=== PATIENT | female | born 1955 | race Caucasian/White ===

== ENCOUNTER 2025-01-25 09:58 | Outpatient (REF) | payer MEDICARE, SELFPAY ==
[2025-01-25 12:48] LABS: Vitamin B12 302 pg/mL (200-900)
[2025-01-30 02:53] LABS: CK-BB None Detected (None Detected); CK-MB 0 % (<5); CK-MM 100 % (95-100); Creatine Kinase,Total,Serum 68 U/L (18-225)
== END 2025-01-25 09:59 | disposition home or self-care (01) ==
LOC: HO.LAB 09:58
PROVIDERS: PCP Nurse Practitioner Family; Visit Provider Nurse Practitioner
DX: R51.9 Headache, unspecified (principal); R26.9 Unspecified abnormalities of gait and mobility; M54.2 Cervicalgia; M25.512 Pain in left shoulder
CPT/HCPCS: 20553; 36415; 64405; 82552; 82607; 83921; 99202; J0665; J2003

== ENCOUNTER 2025-01-25 09:58 | Outpatient (AMB) | payer MEDICARE, SELFPAY ==
--- NOTE | 2025-01-25 10:17 | A.OFFVIS_ITS ---
Vital Signs 01/25/25 10:18 Height 5 ft 7 in Weight 130 lb BMI 20.4 BP 118/78 Blood Pressure Location Lt brachial Position Sitting Respiration 16 Intake Visit Reasons: Migraine , Re-Establish Care Migraine Allergies No Known Allergies Allergy (Verified 01/25/25 10:17) Medication List - Last Reconciled 01/25/25 by Eloise Moore, MU clonazepam 0.5 mg PO DAILY coQ10 (ubiquinol) 100 mg PO BID cyclobenzaprine 10 mg PO QPM diltiazem HCl CD 120 mg PO DAILY flecainide 75 mg PO BID topiramate 50 mg PO BID triamcinolone acetonide 0.1% appl topical HPI Comments Details: Renetta is a 69-year-old female patient with past medical history of chronic headache and cardiac arrhythmias who is presenting today to reestablish care with me here at [facility] transferring from [facility] where I previously treated her. She has historically had bilateral/holocephalic headaches described as a pressure sensation originating from the occipital areas without any accompanying migrainous features. She has been treated successfully in the past with occipital nerve blocks. She originally started receiving nerve blocks with Dr. Oquendo and transferred to my care. Today she reports to me that due to some personal stressors at home including a sister with health problems as well as 2 recent deaths in her family, she has been feeling exceptionally tense. Her headaches have somewhat gotten slightly more persistent since our last visit at [facility] which was on 12/15/2024 at which time she did receive bilateral occipital nerve block injections. Her headaches most recently are consistent with prior in that they are bilateral/holocephalic and described as a pressure sensation originating from the occipital areas. She denies any light sensitivity, sound sensitivity, nausea, dizziness, or any brain fog associated with her headaches. She does feel some tension in her shoulder areas. She has inconsistent with her existing topiramate and cyclobenzaprine which she takes regularly in addition to her nerve blocks as she has been getting for preventive therapy. In addition to her headaches, she does bring up another concern she has for today including some difficulty with balance and a sensation that her gait is unsteady. She likens this to a sensation that she has been ?drinking?. She denies any postural lightheadedness or vertigo/room spinning sensations. She has not had any falls. In addition to the difficulty with her balance/gait, she also feels as though her thigh muscles have been sore throughout the day typically better in the morning and worsening throughout the day. She denies any cramping or radicular type of pain but rather describes more of an aching sensation. She denies any numbness or tingling. She denies any back pain. Social: Lives home with her Worked at [employer] and is now retired ETOH: Rately Substance Tobacco: 5 cigaretts per day Caffine: 2 cups per day Past medication trials: Topiramate- Currently taking with some benefit Cyclobenzaprine- Currently taking with some benefit Magnesium- Currently taking with some benefit Riboflaven- Currently taking with some benefit COQ10- Currently taking with some benefit Occipital Nerve Blocks- Works well Prior workup: None available [facility] Medical History (Updated 01/25/25 @ 15:51 by Eloise Moore CNP) Migraine Review of Systems Eyes Reports as per HPI Physical Exam Vital Signs: Last Vital Signs Resp 16 01/25/25 10:18 BP 118/78 01/25/25 10:18 BMI result Body Mass Index 20.4 Const General: cooperative, healthy appearing, comfortable and no acute distress Nutritional Appearance: well nourished Orientation/consciousness: patient oriented x3 Limitations: no limitations HEENT Head: Yes normal to inspection and Yes normocephalic Eyes General: appearance normal, both eyes and all related structures Visual Fagan: normal visual fagan by confrontation Alignment and Position: alignment normal Periorbital: periorbital findings normal Eyelids: Yes eyelids normal Conjunctivae: conjunctivae normal Sclerae: sclerae normal Direct Ophthalmoscopy: normal light reflex Back/Spine/Pelvis Other: Bilateral occipital notch tenderness and bilateral trapezius trigger points Neuro General: patient oriented x3 and tone normal Cranial nerves: Yes CN's II-XII intact bilaterally and Yes Facial sensation intact/muscles of mastication intact Cognition (Neuro): normal cognition Gait exam (Neuro): Other gait observations present (Appears stiff at the hips and knees bilaterally when ambulating. ) Motor exam (neuro): 5/5 motor strength present throughout and no tremor noted Sensory Exam: double simultaneous stimulation for sensation normal Deep tendon reflexes (DTR's): Right triceps reflex intensity grade: 2+, Left triceps reflex intensity grade: 2+, Rt Biceps (C5, C6): 2+, Left biceps reflex intensity grade: 2+, Right brachioradialis reflex intensity grade: 2+, Left brachioradialis reflex intensity grade: 2+, Right patellar reflex intensity grade: 0, Left patellar reflex intensity grade: 2+, Right ankle reflex intensity grade: 0 and Left ankle reflex intensity grade: 0 Plantar Reflex Responses: downgoing: bilateral Coordination: [id number] test normal Pupils: Normal pupillary reactivity/response: bilateral Psych Appearance: grossly normal Mental Status: mental status grossly normal Speech and movement: Normal speech and movement present and Clear speech present Affect: normal affect Attitude: cooperative Thought process: Normal thought process present Thought content: Normal thought content present Insight: Good insight present (Psych) Judgement: Good judgement present (Psych) Office Procedures Nerve Block Details: Bilateral Greater Occipital Nerve block procedure: Laterally: Bilateral Indications: Occipital neuralgia Current allergies and current list of medications were reviewed prior to procedure, verbal consent was obtained, procedure was explained in detail to the patient prior to starting. Time-out was performed prior to procedure. Following universal hygiene protocols, patient's left occipital area was located by drawing a line between the external occipital protuberance and the mastoid process. The greater occipital nerve was located approximately 2/3 along this on line csr to the occiput, and corresponded with the point of maximum tenderness. Alcohol was applied topically to the skin. A 27 gauge needle (aspirating during insertion) was inserted at a 45 degree angle until just above the periosteum. The providers selected agent (s)/medications (as documented in this note) were injected on the left side (directing needle to center, left and right of painful focus any fanning technique). Pressure with gauze pad was held briefly upon the site of puncture to minimize bleeding and to further spread anesthetic subcutaneously. The procedure was repeated on the right side. CPT: 23117-Eufmtuv Occipital Procedure code (CPT) selection complete Therapeutic Injection Therapeutic Injection Details: Trigger point injection procedure: Laterally:Bilateral Indications: Chronic headaches, myofascial pain Following universal hygiene protocol, after explaining the risks and benefits as well as hazards of the procedure to the patient, consent was signed and placed in the chart. Time-out prior to starting the procedure was performed. The areas over the bilateral trapezius muscles were cleansed with alcohol. 2 Sites in each trapezius muscle injected with a 27 gauge 1.5 in needle with myofascial spasm. Patient tolerated the procedure well, localized bleeding was controlled. Patient monitored in the clinic for 15 minutes for complications. Patient was discharged home with instructions to apply ice to the back of their head as needed. 18553-Lvhlqis Point Injection 3 or more All charges added?: Procedure code (CPT) selection complete Office Meds lidocaine (PF) 10 mg/mL (1 %) injection solution Performing Provider: Eloise Moore CNP Performing Location: [facility] Neurology and Sleep-[facility] Administered by: Eloise Moore CNP on 01/25/25 15:51 Dose Route Admin Location Dispensed Lot Number Expiration Date [facility] Stage Settings Painter 1 mL peripheral nerve block 1 mL Total Dispensed Waste 1 mL 0 % bupivacaine (PF) 0.25 % (2.5 mg/mL) injection solution Performing Provider: Eloise Moore CNP Performing Location: [facility] Neurology and Sleep-Hol Administered by: Eloise Moore CNP on 01/25/25 15:51 Dose Route Admin Location Dispensed Lot Number Expiration Date [facility] Stage Settings Painter 4 mL Infiltration 10 mL [id number] [employer] Total Dispensed Waste 10 mL 60 % bupivacaine (PF) 0.25 % (2.5 mg/mL) injection solution Performing Provider: Eloise Moore CNP Performing Location: [facility] Neurology and Sleep-Hol Administered by: Eloise Moore CNP on 01/25/25 15:53 Dose Route Admin Location Dispensed Lot Number Expiration Date [facility] Stage Settings Painter 3 mL Infiltration 10 mL [id number] [employer] Total Dispensed Waste 10 mL 70 % Assessment & Plan Assessment & Plan (1) Gait abnormality: Comment: MRI brain and c-spine without contrast. R/o cord compressive myelopathy or CVA. CK, b12, and MMA Code(s): R26.9 - Unspecified abnormalities of gait and mobility Category: Medical Plan: . (2) Occipital headache: Code(s): R51.9 - Headache, unspecified Category: Medical Plan: . Julienne Renetta is a 69-year-old female patient with past medical history of chronic headache and cardiac arrhythmias who is presenting today to reestablish care with me here at [facility] transferring from [facility] where I previously treated her. 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 She also displayed some significant trigger points to the bilateral trapezius muscles worse on the left today. We performed occipital nerve block injections as well as trigger point injections today. There were no complications during the visit procedure. We will continue this treatment for headaches. In regards to her worsening balance. Given her chronic headaches and gait abnormality, I am concerned about the possibility of C-spine pathology including a compressive myelopathy. We should also consider intracranial pathology though this is less likely. I will however perform an MRI of the brain to rule out such things as CVA. I also included labs to rule out possible contributors to gait abnormalities including B12 deficiencies or a myopathy. I will have her follow-up in approximately 2 months to review both labs and MRI and likely complete another round of nerve block and trigger point injections at that time. -cervical spine MRI without contrast -MRI of the brain without contrast -labs: B12, MMA, and CK level -follow-up in 2 months or sooner if needed Orders: Orders Vitamin B12 Today R26.9 - Unspecified abnormalities of gait and mobility Methylmalonic Acid Today R26.9 - Unspecified abnormalities of gait and mobility CK, Total+Isoenzymes, Serum Today R26.9 - Unspecified abnormalities of gait and mobility MR head/brain wo con Today R26.9 - Unspecified abnormalities of gait and mobility MR cervical spine wo con Today M54.2 - Cervicalgia AMB Nerve Block Today R51.9 - Headache, unspecified AMB Trigger Point Injection Today M25.512 - Pain in left shoulder Coding Level of Care Code New Pt Level 4 (68978) Diagnoses Gait abnormality R26.9 Occipital headache R51.9 CPT Codes Nerve Block - CPT: 66843-Zczjkrg Occipital ([id number]) Therapeutic Injection - Ther Injection 2: 99244-Oyibudl Point Injection 3 or more ([id number])
[2025-01-25 10:18] VITALS: BP 118/78; RESP 16; BMI 20.4
--- OUTSIDE RECORDS SUMMARY | 2025-01-25 11:41 | XMS_ITS | Encounter Summary ---
Author Organization [facility] Address [address] [place] [id number] Phone Care Team Providers Care Motor Vehicle Technician Name Role Phone Billy Roman MD Unavailable Zora Gallagher CNP Primary Care Provider Zora Gallagher CNP Unavailable Encounter Details Date Type Department Care Team (Latest Contact Info) Description 11/03/2024 Ancillary Orders [address] [address] Alyssa Helms MD [address] [place] [address] Orthopedics & Sports Medicine, [facility] [place], [place] [id number] [email or web address] Localized osteoarthritis of shoulder regions, bilateral (Primary Dx) Social History Tobacco Use Types Packs/Day Years Used Date Smoking Tobacco: Every Day Cigarettes 0.5 40 Smokeless Tobacco: Never Comments:Pattie 1/4ppd Alcohol Use Standard Drinks/Week Comments Yes 0 (1 standard drink = 0.6 oz pur e alcohol) a few times per week Education Answer Date Recorded Are you interested in more education? Not on tammy e 09/16/2022 Are you concerned about learning? Not on file 09/16/2022 No 09/16/2022 No 09/16/2022 Digital Access Answer Date Recorded No 10/08/2022 No 10/08/2022 Reliable internet access at home? Not on file 10/08/2022 Device with a working camera? Not on file Comments No Sex and Gender Information Value Date Recorded Sex Assigned at Female 03/29/2019 9:28 AM EST Legal Sex Female 5:28 PM EST Gender Identity Female 03/29/2019 9:28 AM EST Sexual Orientation Not on file documented as of this encounter Plan of Treatment Upcoming Encounters Date Type Department Care Team (Late st Contact Info) Description 02/26/2024 Procedure Pass [facility] [address] [place] [address] 02/25/2025 10:30 AM EDT Appointment [address] [address] Zora Gallagher, SLUNK SKIN CURER [address] [address] 03/11/2025 9:15 AM EDT Office Visit [facility] Orthopedics & Sports Medicine [address] [place] [address] Alyssa Helms MD [address] [place] [address] Orthopedics & Sports Medicine, [place] [address] [email or web address] 04/27/2025 9:00 AM EST Office Visit [facility] [address] [place] [address] Zora Gallagher, SLUNK SKIN CURER [address] [address] 05/24/2025 10:00 AM EST Office Visit [facility] [address] [place] [address] [address]rd Floor, [address] [place] [address] John Bean MD [address] [place] [phone] Pending Results Name Type Priority Associated Diagnoses Date /Time FL Guidance Needle Placement Non-Spine Imaging Routine Localized osteoarthritis of shoulder regions, bilateral 11/09/2024 10:07 AM EDT Scheduled Orders Name Type Priority Associated Diagnoses Orde r Schedule FL Guidance Needle Placement Non-Spine Imaging Routine Localized osteoarthritis of shoulder regions, bilateral 1 Occurrences starting 11/03/2024 until 02/03/2025 documented as of this encounter Visit Diagnoses Diagnosis Localized osteoarthritis of shoulder regions, bilateral- Primary documented in this encounter Additional Health Concerns Assessment Noted Time PHQ-2 Depression Total Score: 0 08/27/19 24 11:28 AM EDT documented as of this encounter Care Teams Motor Vehicle Technician Relationship Specialty Start Date End Date Zora Gallagher CNP [address] [facility], [facility] [address] [place] [address] [email or web address] PCP - General Nurse Practitioner 08/14/23 Billy Roman MD [address] [place] [phone] [email or web address] Cardiology 11/12/21 Zora Gallagher CNP [address] [facility], [facility] [address] [place] [address] [email or web address] Insurance Assigned Provider 08/22/24 documented as of this encounter Additional Source Comments The information contained in this document represents components of the legal health record. It is not the complete legal health record.[facility]
--- OUTSIDE RECORDS SUMMARY | 2025-01-25 11:41 | XMS_ITS | Encounter Summary ---
Author Organization [facility] Address [address] [place] [address] Phone Care Team Providers Care Auto Mechanics Instructor Name Role Phone Chidi Torres MD Primary Care Provider Chidi Torres MD Unavailable Billy Roman MD Unavailable [phone] Zora Gallagher CNP Primary Care Provider [phone] Chidi Torres MD Unavailable Stefanie Dow MD Unavailable Zora Gallagher CNP Unavailable [phone] Encounter Details Date Type Department Care Team (Late st Contact Info) Description 04/03/2021 Telephone [facility] Electrophysiology Lab [address] [place], [place] [phone] Elina Templeton, RN [address] [place] [phone] [email or web address] Social History Tobacco Use Types Packs/Day Years Used Date Smoking Tobacco: Every Day Cigarettes 0.3 30 Smokeless Tobacco: Never Alcohol Use Standard Drinks/Week Comments Yes 0 (1 standard drink = 0.6 oz pur e alcohol) occasional beer Comments No Sex and Gender Information Value Date Recorded Sex Assigned at Female 03/29/2019 9:28 AM EST Legal Sex Female 5:28 PM EST Gender Identity Female 03/29/2019 9:28 AM EST Sexual Orientation Not on file documented as of this encounter Plan of Treatment Upcoming Encounters Date Type Department Care Team (Late st Contact Info) Description 02/26/2024 Procedure Pass [facility] [address] [place] [address] 02/25/2025 10:30 AM EDT Appointment [address] [address] Zora Gallagher, TIRE MAINTENANCE TECHNICIAN [address] [address] 03/11/2025 9:15 AM EDT Office Visit [facility] Orthopedics & Sports Medicine [address] [place] [address] Alyssa Helms MD [address] [place] [address] Orthopedics & Sports Medicine, [place] [address] [email or web address] 04/27/2025 9:00 AM EST Office Visit [address] [address] Zora Gallagher, [address] [address] 05/24/2025 10:00 AM EST Office Visit [facility] [address] [place] [address] [address] Floor, [address] [place] [address] John Bean MD [address] [place] [phone] documented as of this encounter Results * COVID-19 PCR Order (04/13/2021 10:09 AM EST) COVID-19 Comment [id number] [facility] COVID Testing Status In-house testing being performed [facility] Other 04/13/2021 10:0 9 AM EST 04/13/2021 11:23 AM EST Ariana Kenney MD, MS BODY FLUIDS AND STOOLS MENA ALLAN Final Result [facility] [address] [place] [address] documented in this encounter Visit Diagnoses Diagnosis Encounter for preoperative screening laboratory testing for COVID-19 virus- Primary documented in this encounter Additional Health Concerns Infection Onset Date Last Indicated Resolved Time CoV-Exposed Comment:Recent close contact documented in the COVID-19 Amb Triage Form 04/25/2021 05/01/2021 05/10/2021 1:[address] CoV-Risk 10/03/2021 10/03/2021 10/14/2021 1:22 AM EDT CoV-Presumed 01/05/2022 01/05/2022 01/26/2022 1:21 AM EDT Assessment Noted Time PHQ-2 Depression Total Score: 0 11/24/19 9:14 AM EDT documented as of this encounter Care Teams Auto Mechanics Instructor Relationship Specialty Start Date End Date Chidi Torres MD [address] [place] [address] [email or web address] PCP - General 03/06/17 08/13/23 Zora Gallagher CNP [address] [place] [address] [email or web address] PCP - General Nurse Practitioner 08/14/23 Chidi Torres MD [address] [place] [address] [email or web address] Insurance Assigned Provider 08/25/21 11/11/21 Billy Roman MD [address] [address] [email or web address] Cardiology 11/12/21 Chidi Torres MD [address] [place] [address], [address] [place] [address] Insurance Assigned Provider 08/25/21 08/23/23 Stefanie Dow MD [address] [place] [address], [address] [place] [email or web address] Insurance Assigned Provider 08/23/23 08/22/24 Zora Gallagher CNP [address] [place] [address], [address] [place] [address] Insurance Assigned Provider 08/22/24 documented as of this encounter Additional Source Comments The information contained in this document represents components of the legal health record. It is not the complete legal health record.[facility]
--- OUTSIDE RECORDS SUMMARY | 2025-01-25 11:41 | XMS_ITS | Encounter Summary ---
Author Organization [facility] Address [address] [place] [address] Phone Care Team Providers Care Peg Driver Name Role Phone Chidi Torres MD Primary Care Provider Chidi Torres MD Unavailable [phone] Billy Roman MD Unavailable Zora Gallagher CNP Primary Care Provider Chidi Torres MD Unavailable Stefanie Dow MD Unavailable [phone] Zora Gallagher CNP Unavailable Encounter Details Date Type Department Care Team (Late st Contact Info) Description 12/04/2020 Procedure Pass [facility] Electrophysiology Lab [address] [place] [id number] Social History Tobacco Use Types Packs/Day Years [...] st Contact Info) Description 02/26/2024 Procedure Pass [facility] [address] [place] [address] 02/25/2025 10:30 AM EDT Appointment [facility] [address] [place] [address] Zora Gallagher, INFORMATION SYSTEMS SECURITY DEVELOPER 234 [facility] 7 [place] [address] 03/11/2025 9:15 AM EDT Office Visit [facility] Orthopedics & Sports Medicine [address] [place] [address] Alyssa Helms MD [address] [place] [address] Orthopedics & Sports Medicine, [place] [address] [email or web address] 04/27/2025 9:00 AM EST Office Visit [address] [address] Aileen Zora, INFORMATION SYSTEMS SECURITY DEVELOPER [address] [address] 05/24/2025 10:00 AM EST Office Visit [facility] [address] [place] [address] 3rd Floor, [address] [place] [address] John Bean MD [address] [place] [phone] documented as of this encounter Visit Diagnoses Not on filedocumented in this encounter Additional Health Concerns Infection Onset Date Last Indicated Resolved Time CoV-Exposed Comment:Patient meets exposure criteria to an employee who was confirmed positive for Covid-19. A CoV-Exposed flag has been added to the chart. The last possible exposure date was 12/19/20 and the CoV-Exposed flag will auto-resolve on 01/03/21. 12/19/2020 12/22/2020 01/03/2021 1:32 AM E DT CoV-Exposed Comment:Recent close contact documented in the COVID-19 Amb Triage Form 04/25/2021 05/01/2021 05/10/2021 1:[address] CoV-Risk 10/03/2021 10/03/2021 10/14/2021 1:22 AM EDT CoV-Presumed 01/05/2022 01/05/2022 01/26/2022 1:21 AM EDT Assessment Noted Time PHQ-2 Depression Total Score: 0 11/24/19 9:14 AM EDT documented as of this encounter Care Teams Peg Driver Relationship Specialty Start Date End Date Chidi Torres MD [address] [place] [address] [email or web address] PCP - General 03/06/17 08/13/23 Zora Gallagher CNP [address] [place] [address] [email or web address] PCP - General Nurse Practitioner 08/14/23 Chidi Torres MD [address] [place] [address] [email or web address] Insurance Assigned Provider 08/25/21 11/11/21 Billy Roman MD [address] [place] [phone] [email or web address] Cardiology 11/12/21 Chidi Torres MD [address] [place] [address] [email or web address] Insurance Assigned Provider 08/25/21 08/23/23 Stefanie Dow MD [address] [place] [address], [address] [place] [address] [email or web address] Insurance Assigned Provider 08/23/23 08/22/24 Zora Gallagher CNP [address] [place] [address], [address] [place] [address] [email or web address] Insurance Assigned Provider 08/22/24 documented as of this encounter Additional Source Comments The information contained in this document represents components of the legal health record. It is not the complete legal health record.[facility]
--- OUTSIDE RECORDS SUMMARY | 2025-01-25 11:41 | XMS_ITS | Encounter Summary ---
Author Organization [facility] Address [address] [place] [address] Phone Care Team Providers Care Medical Laboratory Manager Name Role Phone Chidi Torres MD Primary Care Provider Chidi Torres MD Unavailable Chidi Torres MD Unavailable [phone] Billy Roman MD Unavailable Zora Gallagher CURRICULUM FACILITATOR Primary Care Provider [phone] Chidi Torres MD Unavailable Stefanie Dow MD Unavailable [phone] Zora Gallagher CURRICULUM FACILITATOR Unavailable [phone] Reason for Referral * MRI/CAT Scan - Closed Specialty Diagnoses / Procedures Referred By Monica scott Referred To Contact Radiology Diagnoses Neck pain Procedures MRI Cervical Spine Jessie Green MD Phone: tel: fax: Referral ID Status Reason Start Date Expiration Date Visits Re quested Visits Authorized [id number] Closed 05/23/2020 05/23/2021 1 1 Encounter Details Date Type Department Care Team (Latest Contact Info) Description 05/23/2020 Transcribe Orders [facility] Department [address] [place] [address] Jessie Green MD [address] [place] [address] Neck pain (Primary Dx) Social History Tobacco Use Types [...] st Contact Info) Description 02/26/2024 Procedure Pass [address] [address] 02/25/2025 10:30 AM EDT Appointment [address] [address] Zora Gallagher, CURRICULUM FACILITATOR [address] [address] 03/11/2025 9:15 AM EDT Office Visit [facility] Orthopedics & Sports Medicine [address] [place] [address] Alyssa Helms MD [address] [place] [address] Orthoped[facility] [place] [place] [address] [email or web address] 04/27/2025 9:00 AM EST Office Visit [facility] [address] [place] [address] Zora Gallagher, CURRICULUM FACILITATOR [address] [address] 05/24/2025 10:00 AM EST Office Visit [facility] [address] [facility], [address] [place] [address] John Bean MD [address] [place] [address] [email or web address] documented as of this encounter Results * MRI CERVICAL SPINE (NEURO) FOCUS WITHOUT CONTRAST (05/26/2020 8:55 AM EST) Anatomical Region Laterality Modality C-spine Magnetic Resonan ce 05/26/2020 9:01 AM EST Impressions 05/26/2020 9:20 AM EST 1. Mild progression of a central disc protrusion at C6-C7 approaching and likely contacting the anterior margin of the spinal cord. No significant deformation of the spinal cord. 2. No other significant changes from 05/13/2018. Narrative 05/26/2020 9:20 AM EST HISTORY:. Pain which increases when turning the head to the right, numbness and paresthesias in right hand. Occasional numbness and paresthesias in left hand. COMPARISON: MRI cervical spine 05/13/2018. TECHNIQUE: Exam performed on a 1.5 Lizbeth high-field MRI scanner. Sagittal T1, T2 and STIR, axial T2* gradient echo and 3-D bright fluid sequences were obtained. FINDINGS: Cervicomedullary junction: No significant abnormalities. Spinal cord: No evidence of spinal cord lesions. C2-C3: No significant changes. C3-C4: Severe narrowing of the right neuroforamen by uncovertebral joint osteophytes is stable. No significant narrowing of the left neuroforamen. No central canal stenosis has developed. C4-C5: Mild narrowing of the right neuroforamen unchanged. Minimal broad-based bulging of the disc unchanged. No other significant changes. C5-C6: Similar artifact from fusion hardware. This partially obscures anatomic detail at this level. No definite deformation of the spinal cord or central canal stenosis. Neuroforamina are partially obscured. No definite high-grade neuroforaminal narrowing. No other significant changes. C6-C7: Similar mild degenerative disc changes. Mild progression of a small- moderate size central disc protrusion approaching and likely contacting the spinal cord. No significant deformation of the spinal cord. Mild-moderate neuroforaminal narrowing on the right and more mild neuroforaminal narrowing on the left appears stable. C7-T1: No significant abnormalities have developed. Vertebrae: No subluxations. No suspicious marrow signal abnormalities. T1, T2 hyperintense lesion within the body of C7 measuring approximately a centimeter is stable and likely a hemangioma. Soft tissue: No evidence of paravertebral masses. Procedure Note Bi Zaragoza MD - 05/26/2020 HISTORY:. Pain which increases when turning the head to the right,numbness and paresthesias in right hand. Occasional numbness andparesthesias in left hand. COMPARISON: MRI cervical spine 05/13/2018. TECHNIQUE: Exam performed on a 1.5 Lizbeth high-field MRI scanner.Sagittal T1, T2 and STIR, axial T2* gradient echo and 3-D bright fluidsequences were obtained. FINDINGS: Cervicomedullary junction: No significant abnormalities. Spinal cord: No evidence of spinal cord lesions. C2-C3: No significant changes. C3-C4: Severe narrowing of the right neuroforamen by uncovertebral jointosteophytes is stable. No significant narrowing of the left neuroforamen.No central canal stenosis has developed. C4-C5: Mild narrowing of the right neuroforamen unchanged. Minimalbroad-based bulging of the disc unchanged. No other significant changes. C5-C6: Similar artifact from fusion hardware. This partially obscuresanatomic detail at this level. No definite deformation of the spinal cordor central canal stenosis. Neuroforamina are partially obscured. Nodefinite high-grade neuroforaminal narrowing. No other significantchanges. C6-C7: Similar mild degenerative disc changes. Mild progression of asmall- moderate size central disc protrusion approaching and likelycontacting the spinal cord. No significant deformation of the spinal cord.Mild-moderate neuroforaminal narrowing on the right and more mildneuroforaminal narrowing on the left appears stable. C7-T1: No significant abnormalities have developed. Vertebrae: No subluxations. No suspicious marrow signal abnormalities. T1,T2 hyperintense lesion within the body of C7 measuring approximately acentimeter is stable and likely a hemangioma. Soft tissue: No evidence of paravertebral masses. IMPRESSION: 1. Mild progression of a central disc protrusion at C6-C7 approaching andlikely contacting the anterior margin of the spinal cord. No significantdeformation of the spinal cord. 2. No other significant changes from 05/13/2018. Jessie Green MD IMG MR XSPECIALTY Final Result documented in this encounter Visit Diagnoses Diagnosis Neck pain- Primary Cervicalgia Neck pain Cervicalgia documented in this encounter Additional Health Concerns [...] Noted Time PHQ-2 Depression Total Score: 0 04/22/20 10:33 AM EST documented as of this encounter Care Teams Medical Laboratory Manager Relationship Specialty Start Date End Date Chidi Torres MD 234 [facility] 7 [place] [address] [email or web address] PCP - General 03/06/17 08/13/23 Zora Gallagher CNP 234 [facility] 7 [place] [address] PCP - General Nurse Practitioner 08/14/23 Chidi Torres MD [address] [place] [address], [facility] [address] [place] [address] Insurance Assigned Provider 03/25/20 07/22/20 Chidi Torres MD [address] [place] [address], [facility] [address] [place] [phone] Insurance Assigned Provider 08/25/21 11/11/21 Billy Roman MD 3 [place] [address] [email or web address] Cardiology 11/12/21 Chidi Torres MD [address] [place] [address] [address] [place] [phone] Insurance Assigned Provider 08/25/21 08/23/23 Stefanie Dow MD [address] [place] [address] [address] [place] [phone] Insurance Assigned Provider 08/23/23 08/22/24 Zora Gallagher CNP [address] [place] [address] [address] [place] [phone] Insurance Assigned Provider 08/22/24 documented as of this encounter Additional Source Comments The information contained in this document represents components of the legal health record. It is not the complete legal health record.[facility]
--- OUTSIDE RECORDS SUMMARY | 2025-01-25 11:41 | XMS_ITS | Encounter Summary ---
Author Organization [facility] Address [address] [place] [address] Phone Care Team Providers Care Rfid Systems Architect Name Role Phone Chidi Torres MD Primary Care Provider Billy Roman MD Unavailable [phone] Zora Gallagher CNP Primary Care Provider [phone] Chidi Torres MD Unavailable [phone] Stefanie Dow MD Unavailable Zora Gallagher CNP Unavailable [phone] Encounter Details Date Type Department Care Team (Late st Contact Info) Description 08/16/[address] [address] Social History Tobacco Use Types Packs/Day Years [...] st Contact Info) Description 02/26/2024 Procedure Pass [facility] 30 [place] [address] 02/25/2025 10:30 AM EDT Appointment [facility] [address] [place] [address] Zora Gallagher, NIB ADJUSTER 234 [facility] 7 [place] [address] 03/11/2025 9:15 AM EDT Office Visit [facility] Orthopedics & Sports Medicine [address] [place] [address] Alyssa Helms MD [address] [place] [address] Orthopedics & Sports Medicine, [facility] [place] [address] [email or web address] 04/27/2025 9:00 AM EST Office Visit [facility] [address] [place] [address] Zora Gallagher, NIB ADJUSTER [address] [address] 05/24/2025 10:00 AM EST Office Visit [facility] [address] [place] [address] 3rd Floor, [address] [place] [address] John Bean MD [address] [place] [address] documented as of this encounter Visit Diagnoses Not on filedocumented in this encounter Additional Health Concerns Assessment Noted Time PHQ-2 Depression Total Score: 0 02/29/20 22 9:50 AM EDT documented as of this encounter Care Teams Rfid Systems Architect Relationship Specialty Start Date End Date Chidi Torres MD [address] [place] [address] PCP - General 03/06/17 08/13/23 Zora Gallagher CNP [address] [place] [address], [facility] [address] [place] [address] PCP - General Nurse Practitioner 08/14/23 Billy Roman MD [address] [place] [address] [email or web address] Cardiology 11/12/21 Chidi Torres MD [address] [place] [address], [address] [place] [phone] Insurance Assigned Provider 08/25/21 08/23/23 Stefanie Dow MD [address] [place] [address], [address] [place] [phone] Insurance Assigned Provider 08/23/23 08/22/24 Zora Gallagher CNP [address] [place] [address], [facility] [address] [place] [phone] Insurance Assigned Provider 08/22/24 documented as of this encounter Additional Source Comments The information contained in this document represents components of the legal health record. It is not the complete legal health record.[facility]
--- OUTSIDE RECORDS SUMMARY | 2025-01-25 11:41 | XMS_ITS | Encounter Summary ---
Author Organization [facility] Address [address] [place] [address] Phone Care Team Providers Care Chef De Cuisine Name Role Phone Chidi Torres MD Primary Care Provider Chidi Torres MD Unavailable [phone] Chidi Torres MD Unavailable [phone] Chidi Torres MD Unavailable Billy Roman MD Unavailable Zora Gallagher CNP Primary Care Provider [phone] Chidi Torres MD Unavailable Stefanie Dow MD Unavailable Zora Gallagher CNP Unavailable Reason for Referral * MRI/CAT Scan - Closed Specialty Diagnoses / Procedures Referred By Monica scott Referred To Contact Radiology Diagnoses Ataxia Numbness Neck pain Procedures MRI Cervical Spine Des Boyce MD Phone: tel: fax: [email or web address] Referral ID Status Reason Start Date Expiration Date Visits Re quested Visits Authorized [id number] Closed 04/30/2018 05/31/2018 1 1 Encounter Details Date Type Department Care Team (Late st Contact Info) Description 05/08/2018 Ancillary Orders Virtual Department 30 [place] [address] Des Boyce MD [address] [place] [address], [address] [place] [address] Ataxia; Numbness; Neck pain Social History Tobacco Use Types Packs/Day Years Used Date Smoking Tobacco: Every Day Cigarettes 0.5 30 Smokeless Tobacco: Never Comments Unknown Sex and Gender Information Value Date Recorded Sex Assigned at Female 03/29/2019 9:28 AM EST Legal Sex Female 5:28 PM EST Gender Identity Female 03/29/2019 9:28 AM EST Sexual Orientation Not on file documented as of this encounter Plan of Treatment Upcoming Encounters Date Type Department Care Team (Late st Contact Info) Description 02/26/2024 Procedure Pass [address] [address] 02/25/2025 10:30 AM EDT Appointment [address] [address] Zora Gallagher, MU 234 [facility] 7 [place] [address] 03/11/2025 9:15 AM EDT Office Visit [facility] [address] [place] [address] Alyssa Helms MD [address] [place] [address] [facility] [place] [place] [address] [email or web address] 04/27/2025 9:00 AM EST Office Visit [facility] Medicine [address] [place] [address] Zora Gallagher, PIPE FITTER SUPERVISOR MAINTENANCE 234 [facility], [facility] 7 [place] [address] [email or web address] 05/24/2025 10:00 AM EST Office Visit [facility] [address] Floor, [address] [place], [place] [id number] John Bean MD [address] [place] [address] documented as of this encounter Results * MRI CERVICAL SPINE (NEURO) FOCUS WITHOUT CONTRAST (05/13/2018 8:28 AM EST) Anatomical Region Laterality Modality C-spine Magnetic Resonan ce 05/13/2018 9:09 AM EST Impressions 05/13/2018 4:59 PM EST 1. Severe right C3-C4 neural foraminal stenosis from combination of uncovertebral and posterior disc osteophytic spurring, likely impinging upon the exiting right C4 nerve. 2. At C5-C6, at the level of prior anterior fusion, mild to moderate canal narrowing predominantly from posterior ridgelike spurring. 3. At C6-C7, small broad-based central disc extrusion, together with ridgelike spurring resulting in moderate central canal, moderate right and mild left neural foraminal stenosis. POS [id number] Edited by: Terra Carter on 05/13/2018 3:09 PM Narrative 05/13/2018 4:59 PM EST EXAM: MRI CERVICAL SPINE (NEURO) FOCUS WITHOUT CONTRAST HISTORY: Rule out myelopathy . Right-sided neck pain, right arm and right hand radiation. Numbness and tingling right hand greater than one year. Prior cervical spine fusion. TECHNIQUE: Exam performed on a 1.5 Lizbeth high-field MRI unit. Sagittal T1, T2 and STIR, axial T2* gradient echo and 3-D T2 sequences obtained. COMPARISON: Report from prior cervical spine MRI 07/05/2014; images not available for review. FINDINGS: Susceptibility artifact at C5-C6 is from anterior fusion hardware. Well-defined mixed signal T1 and T2/STIR hyperintensity in the superior C7 vertebral body to the left of midline, was described on the prior cervical spine MRI and most likely represents a hemangioma. There is no other marrow signal abnormality. There is minimal loss of disc height at all levels. There is uncovertebral hypertrophy most significant at C3-C4. Mild and moderate bilateral facet hypertrophy at all levels in the cervical spine. Vertebrae are normal in height and alignment. There is posterior ligamentous hypertrophy at C1-C2 with indentation upon the thecal sac. Evaluation of individual levels: C2-C3: Minimal uncovertebral hypertrophy. No focal disc herniation. No significant central canal or neural foraminal stenosis. C3-C4: Minimal posterior disc osteophyte complex, asymmetric right-sided uncovertebral hypertrophy with osteophytic spurring protruding towards the right C3-C4 neural foramen. There is mild canal stenosis, severe right neural foraminal stenosis with the ridgelike spurring protruding into the right C3-C4 neural foramen, impinging upon the exiting right C4 nerve. No significant left-sided neural foraminal stenosis. C4-C5: Very minimal uncovertebral hypertrophy and very minimal central disc bulging. Mild facet hypertrophic changes bilaterally. No significant canal or neural foraminal stenosis. C5-C6: Susceptibility artifact from surgery. With the susceptibility artifact, detailed evaluation is limited. There appears to be ridgelike spurring at the posterior margin of the inferior endplate of C5, uncovertebral osteophytic changes and moderate bilateral facet hypertrophic changes. There is indentation upon the anterior thecal sac and anterior cord, with preservation of CSF signal lateral and posterior to the cord. Canal is mildly narrowed. C6-C7: Small bilateral perineural cysts. Small broad-based central disc extrusion, mild posterior disc ridgelike spurring and bilateral uncovertebral spurring. There is posterior ligamentous thickening and mild bilateral facet hypertrophic spurring. There is moderate canal stenosis, moderate right and mild left neural foraminal stenosis. C7-T1, T1-T2 and T2-T3: There is no significant canal or neural foraminal stenosis. Anterior disc herniation at T2-T3. No posterior disc herniations. Procedure Note Kayla Sandoval MD - 05/13/2018 EXAM: MRI CERVICAL SPINE (NEURO) FOCUS WITHOUT CONTRAST HISTORY: Rule out myelopathy . Right-sided neck pain, right arm and righthand radiation. Numbness and tingling right hand greater than one year.Prior cervical spine fusion. TECHNIQUE: Exam performed on a 1.5 Lizbeth high-field MRI unit. Sagittal T1,T2 and STIR, axial T2* gradient echo and 3-D T2 sequences obtained. COMPARISON: Report from prior cervical spine MRI 07/05/2014; images notavailable for review. FINDINGS: Susceptibility artifact at C5-C6 is from anterior fusion hardware.Well-defined mixed signal T1 and T2/STIR hyperintensity in the superior L8xxcquogag body to the left of midline, was described on the prior cervicalspine MRI and most likely represents a hemangioma. There is no othermarrow signal abnormality. There is minimal loss of disc height at all levels. There is uncovertebralhypertrophy most significant at C3-C4. Mild and moderate bilateral facethypertrophy at all levels in the cervical spine. Vertebrae are normal in height and alignment. There is posteriorligamentous hypertrophy at C1-C2 with indentation upon the thecal sac. Evaluation of individual levels: C2-C3: Minimal uncovertebral hypertrophy. No focal disc herniation. Nosignificant central canal or neural foraminal stenosis. C3-C4: Minimal posterior disc osteophyte complex, asymmetric right- sideduncovertebral hypertrophy with osteophytic spurring protruding towards theright C3-C4 neural foramen. There is mild canal stenosis, severe rightneural foraminal stenosis with the ridgelike spurring protruding into theright C3-C4 neural foramen, impinging upon the exiting right C4 nerve. Nosignificant left-sided neural foraminal stenosis. C4-C5: Very minimal uncovertebral hypertrophy and very minimal centraldisc bulging. Mild facet hypertrophic changes bilaterally. No significantcanal or neural foraminal stenosis. C5-C6: Susceptibility artifact from surgery. With the susceptibilityartifact, detailed evaluation is limited. There appears to be ridgelikespurring at the posterior margin of the inferior endplate of C5,uncovertebral osteophytic changes and moderate bilateral facethypertrophic changes. There is indentation upon the anterior thecal sacand anterior cord, with preservation of CSF signal lateral and posteriorto the cord. Canal is mildly narrowed. C6-C7: Small bilateral perineural cysts. Small broad-based central discextrusion, mild posterior disc ridgelike spurring and bilateraluncovertebral spurring. There is posterior ligamentous thickening and mildbilateral facet hypertrophic spurring. There is moderate canal stenosis,moderate right and mild left neural foraminal stenosis. C7-T1, T1-T2 and T2-T3: There is no significant canal or neural foraminalstenosis. Anterior disc herniation at T2-T3. No posterior discherniations. IMPRESSION: 1. Severe right C3-C4 neural foraminal stenosis from combination ofuncovertebral and posterior disc osteophytic spurring, likely impingingupon the exiting right C4 nerve. 2. At C5-C6, at the level of prior anterior fusion, mild to moderatecanal narrowing predominantly from posterior ridgelike spurring. 3. At C6-C7, small broad-based central disc extrusion, together withridgelike spurring resulting in moderate central canal, moderate right andmild left neural foraminal stenosis. POS [id number] Edited by: Terra Carter on 05/13/2018 3:09 PM Des Boyce MD IMG MR XSPECIALTY Final Resu lt documented in this encounter Visit Diagnoses Diagnosis Ataxia Lack of coordination Numbness Disturbance of skin sensation Neck pain Cervicalgia Ataxia Lack of coordination Numbness Disturbance of skin sensation Neck pain Cervicalgia documented in this encounter Additional Health Concerns Infection Onset Date Last Indicated Resolved Time CoV-Risk 02/07/2020 02/08/2020 02/21/2020 1:24 AM EDT CoV-Exposed Comment:Patient meets exposure criteria to an [...] Noted Time PHQ-2 Depression Total Score: 0 04/21/20 2:00 PM EST documented as of this encounter Care Teams Chef De Cuisine Relationship Specialty Start Date End Date Baustin, Chidi P, MD [address] [place] [address] [address] [place] [address] [email or web address] PCP - General 03/06/17 08/13/23 Aileen Zora, MU [address] [place] [address] 7 [place] [address] [place] [phone] [email or web address] PCP - General Nurse Practitioner 08/14/23 Chidi Torres MD [address] [place] [address] 7 [address] [place] [address] [email or web address] Insurance Assigned Provider 09/19/18 02/27/19 Chidi Torres MD [address] [place] [address] 7 [place] [address] [id number] [email or web address] Insurance Assigned Provider 03/25/20 07/22/20 Chidi Torres MD [address] [place] [address] 7 [place] [address] [place] [id number] [email or web address] Insurance Assigned Provider 08/25/21 11/11/21 Billy Roman MD [address] [address] [email or web address] 11/12/21 Chidi Torres MD [address] [place] [address] 7 [place] [address] [address] [email or web address] Insurance Assigned Provider 08/25/21 08/23/23 Stefanie Dow MD [address] [place] [address], [address] [place] [address] [email or web address] Insurance Assigned Provider 08/23/23 08/22/24 Zora Gallagher CNP [address] [place] [address], [address] [place] [address] [email or web address] Insurance Assigned Provider 08/22/24 documented as of this encounter Additional Source Comments The information contained in this document represents components of the legal health record. It is not the complete legal health record.[facility]
--- OUTSIDE RECORDS SUMMARY | 2025-01-25 11:41 | XMS_ITS | Encounter Summary ---
Author Organization [facility] Address [address] [place] [address] Phone Care Team Providers Care Organ Fixer Name Role Phone Chidi Torres MD Primary Care Provider Chidi Torres MD Unavailable Chidi Torres MD Unavailable Chidi Torres MD Unavailable Billy Roman MD Unavailable Zora Gallagher CNP Primary Care Provider Chidi Torres MD Unavailable Stefanie Dow MD Unavailable [phone] Zora Gallagher CNP Unavailable [phone] Encounter Details Date Type Department Care Team (Latest Contact Info) Description 11/03/2018 Transcribe Orders [facility] Laboratory 30 [place] [address] Des Boyce MD 69 [facility], [address] [place], [place] [id number] [email or web address] Dry mouth (Primary Dx) Social History Tobacco Use Types Packs/Day Years Used Date Smoking Tobacco: Every Day Cigarettes 0.5 30 Smokeless Tobacco: Never Comments No Sex and Gender Information Value Date Recorded Sex Assigned at Female 03/29/2019 9:28 AM EST Legal Sex Female 5:28 PM EST Gender Identity Female 03/29/2019 9:28 AM EST Sexual Orientation Not on file documented as of this encounter Plan of Treatment Upcoming Encounters Date Type Department Care Team (Late st Contact Info) Description 02/26/2024 Procedure Pass [address] [address] 02/25/2025 10:30 AM EDT Appointment [address] [address] Zora Gallagher, PHARMACY BENEFITS COORDINATOR 234 [facility] 7 [place] [address] 03/11/2025 9:15 AM EDT Office Visit [facility] Orthopedics & Sports Medicine [address] [place] [address] Alyssa Helms MD [address] [place] [address] Orthopedics & Sports Medicine, [facility] [place] [address] [email or web address] 04/27/2025 9:00 AM EST Office Visit [facility] Medicine [address] [place] [address] Zora Gallagher, PHARMACY BENEFITS COORDINATOR 234 [facility] 7 [place] [address] 05/24/2025 10:00 AM EST Office Visit [facility] [address] Floor, [address] [place] [address] John Bean MD 50 [place] [address] documented as of this encounter Results * SS-A/SS-B antibodies (11/03/2018 2:13 PM EDT) SS-A/RO IGG <0.2 <1.0 (Negative) [facility]/PATH SUPERIOR SS-B/LA IGG <0.2 <1.0 (Negative) U [facility] LAB MED/PATH SUPERIOR Blood 11/03/2018 2:13 PM EDT 11/03/2018 2:14 PM EDT us Des Boyce MD LAB BLOOD ORDERABLES Final R esult [facility] LAB MED/PATH SUPERIOR [address] [place] [id number] documented in this encounter Visit Diagnoses Diagnosis Dry mouth- Primary Disturbance of salivary secretion documented in this encounter Additional Health Concerns [...] Time PHQ-2 Depression Total Score: 0 04/21/20 18 2:00 PM EST documented as of this encounter Care Teams Organ Fixer Relationship Specialty Start Date End Date Chidi Torres MD [address] [place] [address], [address] [place] [address] [email or web address] PCP - General 03/06/17 08/13/23 Zora Gallagher CNP [address] [place] [address], [facility] 7 [address] [place] [address] [email or web address] PCP - General Nurse Practitioner 08/14/23 Chidi Torres MD [address] [place] [address], [facility] 7 [address] [place] [address] [email or web address] Insurance Assigned Provider 09/19/18 02/27/19 Chidi Torres MD [address] [place] [address], [facility] 7 [place] [address] [place] [address] [email or web address] Insurance Assigned Provider 03/25/20 07/22/20 Chidi Torres MD [address] [place] [address] 7 [place] [address] [place] [address] [email or web address] Insurance Assigned Provider 08/25/21 11/11/21 Billy Roman MD [address] [place] [address] [email or web address] Cardiology 11/12/21 Chidi Torres MD [address] [place] [address] 7 [place] [address] [email or web address] Insurance Assigned Provider 08/25/21 08/23/23 Stefanie Dow MD [address] [place] [address], [address] [place] [address] [email or web address] Insurance Assigned Provider 08/23/23 08/22/24 Zora Gallagher CNP [address] [place] [address], [address] [place] [address] [email or web address] Insurance Assigned Provider 08/22/24 documented as of this encounter Additional Source Comments The information contained in this document represents components of the legal health record. It is not the complete legal health record.[facility]
--- OUTSIDE RECORDS SUMMARY | 2025-01-25 11:41 | XMS_ITS | Encounter Summary ---
Author Organization [facility] Address [address] [place] [address] Phone Care Team Providers Care Trimming Inspector Name Role Phone Chidi Torres MD Primary Care Provider [phone] Chidi Torres MD Unavailable Chidi Torres MD Unavailable Chidi Torres MD Unavailable [phone] Billy Roman MD Unavailable [phone] Zora Gallagher CNP Primary Care Provider Chidi Torres MD Unavailable Stefanie Dow MD Unavailable Zora Gallagher CNP Unavailable Encounter Details Date Type Department Care Team (Latest Contact Info) Description 09/22/2018 Transcribe Orders [facility] Laboratory 30 [place] [address] Des Boyce MD 69 [facility], [address] [place], [place] [id number] [email or web address] Other headache syndrome (Primary Dx) Social History Tobacco Use Types [...] st Contact Info) Description 02/26/2024 Procedure Pass [facility] 30 [place] [address] 02/25/2025 10:30 AM EDT Appointment [address] [address] Zora Gallagher, MAINTENANCE AND ENGINEERING MANAGER 234 [facility] 7 [place] [address] 03/11/2025 9:15 AM EDT Office Visit [facility] Orthopedics & Sports Medicine [address] [place] [address] Alyssa Helms MD [address] [place] [address] Orthopedics & Sports Medicine, [facility] [place] [address] [email or web address] 04/27/2025 9:00 AM EST Office Visit [facility] Medicine [address] [place] [address] Zora Gallagher, MAINTENANCE AND ENGINEERING MANAGER 234 [facility] 7 [place] [address] 05/24/2025 10:00 AM EST Office Visit [facility], [address] [place] [address] John Bean MD 50 [place] [address] documented as of this encounter Results * CBC (09/22/2018 3:39 PM EDT) WBC 8.28 3.40 - 11.20 K/uL [facility] RBC 4.44 3.80 - 4.80 M/uL [facility] HGB 13.1 12.0 - 15.0 g/dL [facility] HCT 39.8 36.0 - 46.0 % [facility] PLT 298 130 - 400 K/uL [facility] MCV 89.6 79.0 - 98.0 fL [facility] MCH 29.5 27.0 - 34.8 pg [facility] MCHC 32.9 31.5 - 36.0 g/dL [facility] RDW 12.4 10.8 - 14.6 % [facility] MPV 9.9 9.4 - 12.4 fl [facility] NRBC 0.00 0.00 /100 WBCs [facility] ABSOLUTE NRBC 0.00 0.00 K/uL [facility] Blood 09/22/2018 3:39 PM EDT 09/22/2018 3:41 PM EDT us Des Boyce MD LAB BLOOD ORDERABLES Final R esult Performing Organization Address City/State/[facility] Co de Phone Number [facility] 30 [place] [address] * LFTs (hepatic panel) (09/22/2018 3:39 PM EDT) ALKALINE PHOSPHATASE 55 39 - 117 U/L [facility] TOTAL BILIRUBIN 0.2 0.0 - 1.2 mg/dL [facility] DIRECT BILIRUBIN <0.2 0 - 0.3 mg/dL [facility] Bilirubin (Indirect) NOT CALCULATED 0 - 1.5 mg/dL [facility] AST 14 0 - 37 U/L [facility] ALT 14 0 - 40 U/L [facility] TOTAL PROTEIN 6.5 6.5 - 8.0 g/dL [facility] ALBUMIN 4.2 3.9 - 4.8 g/dL [facility] GLOBULIN 2.3 1 - 4.8 g/dL [facility] A/G Ratio 1.83 1.00 - 4.80 RATIO [facility] Blood 09/22/2018 3:39 PM EDT 09/22/2018 3:41 PM EDT us Des Boyce MD LAB BLOOD ORDERABLES Final R esult [facility] [address] [place] [address] documented in this encounter Visit Diagnoses Diagnosis Other headache syndrome- Primary documented in this encounter Additional Health [...] documented as of this encounter Care Teams Trimming Inspector Relationship Specialty Start Date End Date Chidi Torres MD [address] [place] [address], [facility] 7 [place] [address] PCP - General 03/06/17 08/13/23 Zora Gallagher CNP [address] [place] [address], [facility] 7 [place] [address] PCP - General Nurse Practitioner 08/14/23 Chidi Torres MD [address] [place] [address] 7 [place] [address] [email or web address] Insurance Assigned Provider 09/19/18 02/27/19 Chidi Torres MD [address] [place] [address] 7 [place] [address] [email or web address] Insurance Assigned Provider 03/25/20 07/22/20 Chidi Torres MD [address] [place] [address] 7 [place] [address] [email or web address] Insurance Assigned Provider 08/25/21 11/11/21 Billy Roman MD [address] [place] [address] [email or web address] Cardiology 11/12/21 Chidi Torres MD [address] [place] [address] 7 [place] [address] [email or web address] Insurance Assigned Provider 08/25/21 08/23/23 Stefanie Dow MD [address] [place] [address] 7 [place] [id number] Insurance Assigned Provider 08/23/23 08/22/24 Zora Gallagher CNP [address] [place] [address] 7 [place] [address] [email or web address] Insurance Assigned Provider 08/22/24 documented as of this encounter Additional Source Comments The information contained in this document represents components of the legal health record. It is not the complete legal health record.[facility]
--- OUTSIDE RECORDS SUMMARY | 2025-01-25 11:41 | XMS_ITS | Encounter Summary ---
Author Organization [facility] Address [address] [place] [address] Phone Care Team Providers Care Armature Connector Name Role Phone Chidi Torres MD Primary Care Provider Chidi Torres MD Unavailable [phone] Chidi Torres MD Unavailable Billy Roman MD Unavailable [phone] Zora Gallagher CNP Primary Care Provider Chidi Torres MD Unavailable Stefanie Dow MD Unavailable Zora Gallagher CNP Unavailable Reason for Referral * Physical Therapy (Elective) - Closed Specialty Diagnoses / Procedures Referred By Monica scott Referred To Contact Physical Therapy Diagnoses Encounter for rehabilitation Both Legs balance /trunk control Procedures Evaluate & Treat Jessie Green MD Phone: tel: fax: [address] [address] Phone: tel: Referral ID Status Reason Start Date Expiration Date Visits Re quested Visits Authorized [id number] Closed 06/15/2019 05/18/2020 18 18 Encounter Details Date Type Department Care Team (Latest Contact Info) Description 06/03/2019 Transcribe Orders [facility] [address] [place] [phone] Jessie Green MD 299 [facility] [address] [place] [address] Encounter for rehabilitation (Primary Dx) Social History Tobacco Use Types Packs/Day Years Used Date Smoking Tobacco: Every Day Cigarettes 0.3 30 Smokeless Tobacco: Never Alcohol Use Standard Drinks/Week Comments Not Currently 0 (1 standard drink = 0.6 oz pur e alcohol) Comments No Sex and Gender Information Value Date Recorded Sex Assigned at Female 03/29/2019 9:28 AM EST Legal Sex Female 5:28 PM EST Gender Identity Female 03/29/2019 9:28 AM EST Sexual Orientation Not on file documented as of this encounter Plan of Treatment Upcoming Encounters Date Type Department Care Team (Late st Contact Info) Description 02/26/2024 Procedure Pass [address] [address] 02/25/2025 10:30 AM EDT Appointment [address] [address] Zora Gallagher, MU [address] [address] 03/11/2025 9:15 AM EDT Office Visit [facility] [address] [place] [address] Alyssa Helms MD [address] [place] [address] Orthopedics & Sports Medicine, [facility] [place] [address] [email or web address] 04/27/2025 9:00 AM EST Office Visit [address] [address] Zora Glalagher CNP [address] [place] [address] [place] [address] 05/24/2025 10:00 AM EST Office Visit [facility] [address]rd Floor, [address] [place] [address] John Bean MD 50 [place] [address] [email or web address] documented as of this encounter Procedures Procedure Name Priority Date/Time Associated Diagnosis Comments AMB REFERRAL TO [facility] PHYSICAL THERAPY Routine 06/15/2019 9:08 AM EST Encounter for rehabilitation documented in this encounter Results * Ambulatory referral to [facility] Physical Therapy (06/15/2019 9:08 AM EST) us Jessie Green MD AMB [facility] REFERRALS Final Result documented in this encounter Visit Diagnoses Diagnosis Encounter for rehabilitation- Primary documented in this encounter Additional Health [...] documented as of this encounter Care Teams Armature Connector Relationship Specialty Start Date End Date Chidi Torres MD 234 [facility], [address] [place] [address] [email or web address] PCP - General 03/06/17 08/13/23 Zora Gallagher CNP [address] [place] [address], [facility] [address] [address] PCP - General Nurse Practitioner 08/14/23 Chidi Torres MD [address] [place] [address], [facility] [address] [address] [email or web address] Insurance Assigned Provider 03/25/20 07/22/20 Chidi Torres MD [address] [place] [address], [facility] [address] [address] [email or web address] Insurance Assigned Provider 08/25/21 11/11/21 Billy Roman MD [address] [place] [address] [email or web address] Cardiology 11/12/21 Chidi Torres MD [address] [place] [address] [address] [address] [email or web address] Insurance Assigned Provider 08/25/21 08/23/23 Stefanie Dow MD [address] [place] [address], [facility] [address] [address] [email or web address] Insurance Assigned Provider 08/23/23 08/22/24 Zora Gallagher CNP [address] [place] [address], [facility] [address] [address] [email or web address] Insurance Assigned Provider 08/22/24 documented as of this encounter Additional Source Comments The information contained in this document represents components of the legal health record. It is not the complete legal health record.[facility]
--- OUTSIDE RECORDS SUMMARY | 2025-01-25 11:41 | XMS_ITS | Encounter Summary ---
Author Organization [facility] Address [address] [place] [address] [address] [place] [address] Phone Care Team Providers Care Switch Engineer Name Role Phone Chidi Torres MD Primary Care Provider Chidi Torres MD Unavailable [phone] Chidi Torres MD Unavailable [phone] Chidi Torres MD Unavailable Billy Roman MD Unavailable [phone] Zora Gallagher CNP Primary Care Provider [phone] Chidi Torres MD Unavailable Stefanie Dow MD Unavailable Zora Gallagher CNP Unavailable [phone] Encounter Details Date Type Department Care Team (Late st Contact Info) Description 05/21/2018 Ancillary Orders [facility] Medicine 234 [place], [place] [phone] Chidi Torres MD 234 [facility], [address] [place], [place] [id number] [email or web address] Abnormal mammogram Social History Tobacco Use Types Packs/Day Years [...] st Contact Info) Description 02/26/2024 Procedure Pass [facility] 30 [place] [address] 02/25/2025 10:30 AM EDT Appointment [facility] 30 [place] [address] Zora Gallagher, CHEMICAL LABORATORY CHIEF 234 [facility] 7 [place] [address] 03/11/2025 9:15 AM EDT Office Visit [facility] Orth[facility]ics & Sports Medicine [address] [place] [address] Alyssa Helms MD [address] [place] [address] Orthopedics & Sports Medicine, [facility] [place] [address] [email or web address] 04/27/2025 9:00 AM EST Office Visit [address] [address] Zora Gallagher, CHEMICAL LABORATORY CHIEF 234 [facility] 7 [place] [address] 05/24/2025 10:00 AM EST Office Visit [facility] [address]rd Floor, [address] [place] [address] John Bean MD 50 [place] [address] documented as of this encounter Results * BI US BREAST LIMITED (RIGHT) (06/12/2018 3:35 PM EST) Anatomical Region Laterality Modality Breast Right, Breast Bilateral Right U ltrasound 06/12/2018 3:31 PM EST Narrative 06/12/2018 3:42 PM EST Refer to the mammogram report. POS - [id number] Procedure Note Rekha Nugent MD - 06/12/2018 Refer to the mammogram report. POS - [id number] us Chidi Torres MD IMG US BREAST Final Result * BI MAMMOGRAM DIAGNOSTIC WITH TOMOSYNTHESIS WITH CAD (RIGHT) (06/12/2018 3:06 PM EST) Anatomical Region Laterality Modality Breast Right, Breast Bilateral Right M ammography 06/12/2018 3:11 PM EST Addenda Addendum by Rekha Nugent MD on 01/13/2019 7:54 AM EDT Radiologist recommended at patient's last visit on 06/12/2018 that she return for a short term follow-up in six months. To date no follow-up appointment scheduled. A certified letter was sent on 01/12/2019 informing the patient she is overdue. Edited by: Jess Morrison on 01/12/2019 8:35 AM Impressions 06/12/2018 3:30 PM EST Additional imaging cannot currently confirm a lymph node or suspicious mass. Given the slight interval change a six-month follow-up mammogram is recommended. Findings relayed to the patient via the technologist. BI-RADS CATEGORY: 3 - Probably benign finding. Short interval follow up suggested. DENSITY: There are scattered fibroglandular densities. POS - [id number] Narrative 06/12/2018 3:30 PM EST 62-year-old female who presents for a callback mammogram for a right breast mass. Comparison made to previous mammograms. Interpretation made in conjunction with computer-aided detection and tomosynthesis. Right ML and spot compression right cc views obtained. The right breast is composed of scattered areas of fibroglandular density. The small circumscribed mass is less apparent on the spot compression view. On the ML view there multiple small nodular densities throughout the breast but non-correlate well with the cc view findings. No suspicious masses or distortion. Right breast ultrasound was obtained. There is no sonographic abnormality in the outer right breast. Procedure Note Rekha Nugent MD - 06/12/2018 62-year-old female who presents for a callback mammogram for a rightbreast mass. Comparison made to previous mammograms. Interpretation madein conjunction with computer-aided detection and tomosynthesis. Right ML and spot compression right cc views obtained. The right breastis composed of scattered areas of fibroglandular density. The smallcircumscribed mass is less apparent on the spot compression view. On theML view there multiple small nodular densities throughout the breast butnon-correlate well with the cc view findings. No suspicious masses ordistortion. Right breast ultrasound was obtained. There is no sonographic abnormalityin the outer right breast. IMPRESSION: Additional imaging cannot currently confirm a lymph node or suspiciousmass. Given the slight interval change a six-month follow-up mammogram isrecommended. Findings relayed to the patient via the technologist. BI-RADS CATEGORY: 3 - Probably benign finding. Short interval follow upsuggested. DENSITY: There are scattered fibroglandular densities. POS - [id number] Chidi Torres MD IMG MG EXAMS Edited Result - Final documented in this encounter Visit Diagnoses Diagnosis Abnormal mammogram Abnormal mammogram, unspecified Abnormal mammogram Abnormal mammogram, unspecified Abnormal mammogram Abnormal mammogram, unspecified documented in this encounter Additional Health Concerns [...] documented as of this encounter Care Teams Switch Engineer Relationship Specialty Start Date End Date Chidi Torres MD [address] [place] [address] [address] [address] [place] [address] [email or web address] PCP - General 03/06/17 08/13/23 Zora Gallagher CNP [address] [place] [address] [address] [address] [place] [address] [email or web address] PCP - General Nurse Practitioner 08/14/23 Chidi Torres MD [address] [place] [address] [address] [address] [place] [address] [email or web address] Insurance Assigned Provider 09/19/18 02/27/19 Chidi Torres MD [address] [place] [address] [address] [address] [place] [address] [email or web address] Insurance Assigned Provider 03/25/20 07/22/20 Chidi Torres MD [address] [place] [address] [address] [address] [place] [phone] Insurance Assigned Provider 08/25/21 11/11/21 Billy Roman MD [address] [address] [email or web address] Cardiology 11/12/21 Chidi Torres MD [address] [place] [address], [address] [place] [address] Insurance Assigned Provider 08/25/21 08/23/23 Stefanie Dow MD [address] [place] [address], [address] [address] [place] [phone] Insurance Assigned Provider 08/23/23 08/22/24 Zora Gallagher CNP [address] [place] [address], [address] [phone] Insurance Assigned Provider 08/22/24 documented as of this encounter Additional Source Comments The information contained in this document represents components of the legal health record. It is not the complete legal health record.[facility]
--- OUTSIDE RECORDS SUMMARY | 2025-01-25 11:41 | XMS_ITS | Encounter Summary ---
Author Organization [facility] Address [address] [place] [address] [address] [place] [address] Phone Care Team Providers Care Field Sales Trainer Name Role Phone Chidi Torres MD Primary Care Provider [phone] Chidi Torres MD Unavailable Chidi Torres MD Unavailable Chidi Torres MD Unavailable Billy Roman MD Unavailable Zora Gallagher CNP Primary Care Provider Chidi Torres MD Unavailable Stefanie Dow MD Unavailable Zora Gallagher CNP Unavailable [phone] Encounter Details Date Type Department Care Team (Late st Contact Info) Description 01/15/2019 Ancillary Orders [facility] Medicine 234 [place], [place] [phone] Chidi Torres MD 234 [facility], [address] [place], [place] [phone] [email or web address] Social History Tobacco Use Types Packs/Day Years [...] st Contact Info) Description 02/26/2024 Procedure Pass [address] [address] 02/25/2025 10:30 AM EDT Appointment [facility] 30 [place] [address] DoverZora, ESTHETICS INSTRUCTOR 234 [facility] 7 [place] [address] 03/11/2025 9:15 AM EDT Office Visit [facility] Orthopedics & Sports Medicine [address] [place] [address] Alyssa Helms MD [address] [place] [address] Orthopedics & Sports Medicine, [facility] [place] [address] [email or web address] 04/27/2025 9:00 AM EST Office Visit [facility] Medicine [address] [place] [address] Aileen Zora, ESTHETICS INSTRUCTOR 234 [facility] 7 [place] [address] 05/24/2025 10:00 AM EST Office Visit [facility] [address] Floor, [address] [place] [address] John Bean MD [address] [place] [address] documented as of this encounter Visit Diagnoses [...] documented as of this encounter Care Teams Field Sales Trainer Relationship Specialty Start Date End Date Chidi Torres MD [address] [place] [address] 7 [place] [address] [email or web address] PCP - General 03/06/17 08/13/23 Zora Gallagher CNP [address] [place] [address] 7 [place] [address] PCP - General Nurse Practitioner 08/14/23 Chidi Torres MD [address] [place] [address] 7 [place] [address] [email or web address] Insurance Assigned Provider 09/19/18 02/27/19 Chidi Torres MD [address] [place] [address] 7 [place] [address] Insurance Assigned Provider 03/25/20 07/22/20 Chidi Torres MD [address] [place] [address], [address] [address] [email or web address] Insurance Assigned Provider 08/25/21 11/11/21 Billy Roman MD [address] [place] [address] [email or web address] Cardiology 11/12/21 Chidi Torres MD [address] [place] [address], [address] [address] [email or web address] Insurance Assigned Provider 08/25/21 08/23/23 Stefanie Dow MD [address] [place] [address], [facility] [address] [address] [email or web address] Insurance Assigned Provider 08/23/23 08/22/24 Zora Gallagher CNP [address] [place] [address], [address] [phone] Insurance Assigned Provider 08/22/24 documented as of this encounter Additional Source Comments The information contained in this document represents components of the legal health record. It is not the complete legal health record.[facility]
--- OUTSIDE RECORDS SUMMARY | 2025-01-25 11:41 | XMS_ITS | Encounter Summary ---
Author Organization [facility] Address [address] [place] [address] Phone Care Team Providers Care Fiberglasser Name Role Phone Chidi Torres MD Primary Care Provider Chidi Torres MD Unavailable Chidi Torres MD Unavailable Chidi Torres MD Unavailable Billy Roman MD Unavailable Zora Gallagher CNP Primary Care Provider Chidi Torres MD Unavailable Stefanie Dow MD Unavailable Zora Gallagher CNP Unavailable Encounter Details Date Type Department Care Team (Late st Contact Info) Description 05/08/2018 Procedure Pass [facility], [facility] - [address] [place] [address] Social History Tobacco Use Types Packs/Day Years Used Date Smoking Tobacco: Every Day Cigarettes 0.5 30 Smokeless Tobacco: Never Comments No Sex and Gender Information Value Date Recorded Sex Assigned at Female 03/29/2019 9:28 AM EST Legal Sex Female 5:28 PM EST Gender Identity Female 03/29/2019 9:28 AM EST Sexual Orientation Not on file documented as of this encounter Last Filed Vital Signs Vital Sign Reading Time Taken Comments Blood Pressure - - Pulse - - Temperature - - Respiratory Rate - - Oxygen Saturation - - Inhaled Oxygen Concentration - - Weight 70.3 kg (155 lb) 05/09/2018 11:40 AM EST Height 172.7 cm (5' 8 ) 05/09/2018 11:40 AM EST Body Mass Index 23.57 05/09/2018 11:40 AM EST documented in this encounter Plan of Treatment Upcoming Encounters Date Type Department Care Team (Late st Contact Info) Description 02/26/2024 Procedure Pass [address] [address] 02/25/2025 10:30 AM EDT Appointment [address] [address] Zora Gallagher, ESTIMATION MANAGER 234 [facility] 7 [place] [address] 03/11/2025 9:15 AM EDT Office Visit [facility] Orthopedics & Sports Medicine [address] [place] [address] Alyssa Helms MD [address] [place] [address] Orthopedics & Sports Medicine, [facility] [address] [email or web address] 04/27/2025 9:00 AM EST Office Visit [facility] Medicine [address] [place] [address] Zora Gallagher, ESTIMATION MANAGER 234 [facility] 7 [place] [address] 05/24/2025 10:00 AM EST Office Visit [facility] [address] [place] [address] [address]rd Floor, [address] [place] [address] John Bean MD [address] [place] [address] [email or web address] documented as of this encounter Visit Diagnoses [...] documented as of this encounter Care Teams Fiberglasser Relationship Specialty Start Date End Date Chidi Torres MD [address] [place] [address] [email or web address] PCP - General 03/06/17 08/13/23 Zora Gallagher CNP [address] [place] [address] [email or web address] PCP - General Nurse Practitioner 08/14/23 Chidi Torres MD [address] [place] [address] [email or web address] Insurance Assigned Provider 09/19/18 02/27/19 Chidi Torres MD [address] [place] [address] 7 [address] [place] [address] Insurance Assigned Provider 03/25/20 07/22/20 Chidi Torres MD [address] [place] [address], [facility] [address] [place] [address] Insurance Assigned Provider 08/25/21 11/11/21 Billy Roman MD 3 [place] [address] [email or web address] Cardiology 11/12/21 Chidi Torres MD [address] [place] [address] 7 [address] [address] [email or web address] Insurance Assigned Provider 08/25/21 08/23/23 Stefanie Dow MD [address] [place] [address] 7 [address] [address] Insurance Assigned Provider 08/23/23 08/22/24 Zora Gallagher CNP [address] [place] [address] 7 [address] [phone] Insurance Assigned Provider 08/22/24 documented as of this encounter Additional Source Comments The information contained in this document represents components of the legal health record. It is not the complete legal health record.[facility]
--- OUTSIDE RECORDS SUMMARY | 2025-01-25 11:41 | XMS_ITS | Clinical Summary ---
Author Organization [facility] Address [address] [place] [id number] Phone Care Team Providers Care Touch Up Carver Name Role Phone Billy Roman MD Unavailable [phone] Zora Gallagher CNP Primary Care Provider Zora Gallagher CNP Unavailable [phone] Allergies No known active allergies Medications riboflavin, vitamin B2, (,VITAMIN B-2,) 100 mg Tab Take 200 mg by mouth 2 (two) times a day. 200mg in AM 200mg in PM Active magnesium oxide 250 mg (150 mg elemental) Tab Take 400 mg by mouth daily. Active coenzyme Q10 200 mg capsule Take 1 capsule (200 mg total) by mouth 2 (two) times a day. 60 capsule 1 2 Active topiramate (TOPAMAX) 50 MG tablet Take 1 tablet by mouth 2 (two) times a day. 3 Active flecainide (TAMBOCOR) 50 MG tabletIndications :one and a half BID-150 mg total Take 1.5 tablets (75 mg total) by mouth 2 (two) times a day. 1.5 tab twice daily Indications: one and a half BID-150 mg total 270 tablet 4 4 Active dilTIAZem (CARDIZEM CD) 120 MG 24 hr capsuleIndication s:Atrial fibrillation Take 1 capsule (120 mg total) by mouth daily. 90 capsule 3 4 Active triamcinolone acetonide 0.1 % creamIndications: Intrinsic eczema APPLY TOPICALLY NEEDED 30 g 1 5 Active clonazePAM (KLONOPIN) 0.5 MG tabletIndications :Anxiety state TAKE ONE TABLET BY MOUTH EVERY DAY 90 tablet 5 Active Active Problems Problem Noted Date Diagnosed Date Other nonthrombocytopenic purpura 07/25/2023 Atypical mole 09/18/2022 Myalgia 02/26/2022 Overview (02/26/2022): Leg pain Assessment & Plan (02/26/2022 10:39 AM EDT): Essentially resolved along with fatigue with start of high-dose coenzyme Q10. Underlying etiology remains unclear. Given resolution of symptoms, further work-up reasonable to defer at this time. Suggest continue co-Q10 and taper dose to lowest dose necessary to manage symptoms. If recur or symptoms worsen despite co-Q10, could consider further work-up for PMR or other causes of myalgias. Dyspnea 09/20/2021 Assessment & Plan (09/20/2021 9:14 AM EDT): I noted that given she is still having this for now despite being normal sinus rhythm, clearly there is another issue. I noted that given her extensive smoking history, COPD is a likely cause. I will refer her to a pulmonary doctor Chronic nonintractable headache 05/22/2021 Assessment & Plan (02/26/2024 9:50 AM EDT): Followed and managed by Dr. Oquendo. Managed with topiramate 50mg and riboflavin/magnesium for prophylaxis. She uses cyclobenzaprine at night. Continues regular neck injections. Will continue to monitor. Assessment & Plan (08/27/2023 12:07 PM EDT): Followed and managed by Dr. Oquendo. She reports significant improvement since getting neck injections. Managed with topiramate 50mg and riboflavin/magnesium for prophylaxis. She uses cyclobenzaprine at night. Will continue to monitor. Atrial fibrillation 05/03/2021 Assessment & Plan (11/09/2024 10:36 AM EDT): Very brief episode of atrial fibrillation immediately following her SVT ablation that was done at [facility]. She was recommended for 6 weeks of anticoagulation with Xarelto and then to stop anticoagulation. She has had no recurrence of atrial fibrillation to date that we know if. Her [id number]-[id number] score is 2. Will continue off anticoagulation as we have been doing. Assessment & Plan (12/04/2023 10:45 AM EDT): Very brief episode of atrial fibrillation immediately following her SVT ablation that was done at [facility]. She was recommended for 6 weeks of anticoagulation with Xarelto and then to stop anticoagulation. She has had no recurrence of atrial fibrillation to date that we know if. Her HWD6WB3-USWk score is 2. Will continue off anticoagulation as we have been doing. Assessment & Plan (09/20/2021 9:15 AM EDT): Patient had a very brief episode of atrial fibrillation immediately after her SVT ablation that was done at [facility]. They had asked her to start Xarelto for 6 weeks and then stop. She has not had any further recurrences since. She has a QXP7WM4- VASc of 2 given age and gender. I noted that the current guidelines say that at this risk or, anticoagulation or no anticoagulation options. She notes that she is being started on a migraine medication where anticoagulation of any type or aspirin is contraindicated. Given she has not had any further recurrences and her AYY6GA5- VASc is borderline, we will hold on anticoagulation for now Assessment & Plan (05/03/2021 9:33 AM EST): She has had brief episodes of atrial fibrillation immediately after and during the procedure. She is on Xarelto currently. She has a IHS9PS9-FBDs of 2 given age and gender based on the most recent guidelines does not have to be on anticoagulation given the threshold is now IJQ2NB3-JUPp of 3 for women. She is on Xarelto that was started by [facility] for 6 weeks and can go back to aspirin afterwards Paroxysmal supraventricular tachycardia 06/15/19 Assessment & Plan (11/09/2024 10:37 AM EDT): She has remained asymptomatic on 75 mg of flecainide twice daily in addition to diltiazem 120 mg daily. Due to ongoing flecainide use she just had a nuclear stress test done in September, perfusion imaging was normal, no anginal symptoms on treadmill, there were some EKG changes seen in lateral leads however. Continue flecainide 75 mg twice daily Continue diltiazem 120 mg daily Assessment & Plan (12/04/2023 10:44 AM EDT): Her last EP study at [facility] described her arrhythmia is a Walt mitral atrial tachycardia. Since ablation she has done well on 75 mg of flecainide twice daily. Currently doing well denying any concerning symptoms of this. She can continue taking flecainide 75 mg twice daily. Continue diltiazem 120 mg daily As previously mentioned by Dr. Carrera she can take an extra half dose of flecainide for termination of any breakthrough symptoms. 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 Since ablation she has done well on 75 mg of flecainide twice daily. She requests to reduce this to 50 mg twice daily given the difficulty of cutting the small pills which I think is reasonable. If she has breakthrough episodes which cannot self terminate she will take an extra dose. We will make no other changes and continue monitoring for symptoms. Assessment & Plan (02/22/2021 1:33 PM EDT): She has had now 2 SVT ablations done [address] Dumont as well as one at [facility] with unfortunately still recurrences of SVT. She is back to taking diltiazem every day and is now currently taking flecainide 75 mg as needed. She was told at [facility] that it can take up to 3 months for full effect of an ablation to affect and so is hopeful that the occurrence of SVT decreases. I noted that at this point she is still having fairly frequent SVT and it may be reasonable to consider going up to flecainide 75 mg twice daily. I noted that if she continues having SVT episodes going forward, I would recommend a repeat EP study and SVT ablation as a suspect she probably has multiple different atrial tachycardias and then all of them have been ablated. I recommended she get a 1 week monitor so we can document her heart rate and SVT and also confirmed that this is not atrial fibrillation or another arrhythmia that she is having. I noted that if she still has recurrences despite medical therapy, it would be reasonable to have an SVT ablation either done by myself or [facility] and I will leave it up to her to decide where she prefers Assessment & Plan (06/15/2020 1:15 PM EST): I discussed that her SVT is in a location that is close to the His bundle and therefore would be high risk for an ablation for needing a pacemaker. On the other hand I would not want her to be on long-term amiodarone if we can avoid it. Especially since she has been having recurrences of episodes despite amiodarone at 100 mg once daily, we will plan to transition her to flecainide. She will stop her amiodarone now and 2 weeks from now will decrease her metoprolol to 25 mg twice daily and also start flecainide 100 mg twice daily. I would also like to get a monitor on her to see if we can document not only the burden of her symptoms but to ensure this is not a different arrhythmia. Dyspnea on exertion 06/15/2020 Assessment & Plan (02/26/2022 10:39 AM EDT): Significantly improved along with fatigue with start of co-Q10. Will additionally trial inhaler as below for newly diagnosed COPD. Assessment & Plan (11/29/2021 9:48 AM EDT): Constellation of symptoms more related to reduced energy and generalized fatigue rather than true dyspnea. However, given nonspecific nature of symptoms and risk of ongoing tobacco use, will complete respiratory work-up as follows: Obtain repeat PA and lateral chest x-ray, given report of chronic left basilar scarring and pleural thickening on the right. Obtain full pulmonary function studies with 6-minute distance walk on room air. Given nonspecific symptoms of muscle fatigue, recommend empiric trial of high- dose coenzyme Q10, 200 mg twice daily for 1 to 2 months. If work-up unremarkable, could consider further serologic work-up including CPK and aldolase. We will also review medications once again, particularly duration of treatment of her migraine therapy with Topamax which could contribute to her symptom complex. Assessment & Plan (10/13/2020 9:55 AM EDT): Stress test was negative recently and I suspect her episodes of dyspnea are actually to her SVT Assessment & Plan (06/15/2020 1:15 PM EST): She does notice mild dyspnea and we will get a nuclear stress test to rule out coronary disease especially as we are starting flecainide Seborrheic keratoses 12/16/2019 Primary osteoarthritis of both knees 04/22/2019 Atrial tachycardia 03/29/2019 Assessment & Plan (02/26/2024 9:49 AM EDT): Leland, continues to follow with Dr. Carrera. Managed on diltiazem 120mg and flecainide 50mg. Denies concerns. Will continue to monitor. Assessment & Plan (08/27/2023 12:03 PM EDT): Leland, continues to follow with Dr. Carrera. Managed on diltiazem 120mg and flecainide 50mg. Denies concerns. Will continue to monitor. Assessment & Plan (09/20/2021 9:14 AM EDT): She had she seems to be maintaining normal sinus rhythm without recurrent SVT on flecainide and diltiazem. We will continue both of these Assessment & Plan (05/03/2021 9:32 AM EST): She has now gone through 3 ablations for SVT over the last few years including [address] Dumont and 2 at [facility]. I recommended she restart flecainide 75 mg twice daily as well as the diltiazem 120 mg XL once daily as this was helpful for her in the past and could be helpful in combination with the ablation is performed at [facility]. I urged her to reach out to [facility] given that she just had an ablation performed there 2 weeks ago and this recurrence is since that procedure. It does appear that the majority of her recurrences are actually SVT episodes and that the EP there may have a better idea of what will be an effective strategy long-term. Assessment & Plan (10/13/2020 9:55 AM EDT): We discussed that unfortunate during her ablation with Dr. Dumont, she was noted to have an atrial tachycardia originating from close to the hips and that did have AV block with ablation in this region. I noted that an ablation procedure in this region would likely commit her to an pacemaker. She agrees on trying to hold off on a pacemaker and also agrees on trying to hold off on long-term amiodarone given her young age. We will keep her on her regimen of flecainide 50 mg twice daily with an additional dose as needed for SVT. I suspect that the reason she is feeling fatigued on this combination medications is the metoprolol and will stop her metoprolol instead started on diltiazem 120 mg XL once daily. I would get a 2-week monitor to document her rhythm. There was a question of whether she had atrial fibrillation on her monitor but I reviewed it and this is consistent with SVT and not atrial fibrillation. She can stop her anticoagulation and we will monitor her for 2 weeks. We discussed that if this becomes a recurrent issue where we are trying to ascertain what rhythm she is in and if she is having true SVT, we could consider an ILR but she agrees on holding for now Assessment & Plan (12/09/2019 9:12 AM EDT): Difficult to control atrial tachycardia and failed ablation as above due to para hisain focus of atrial tachycardia with mild AV carmen injury on low wattage ablation. He was on Tikosyn and he had more episodes and hence we are to start metoprolol and despite that she had 8% burden of atrial tachycardia for which she is quite symptomatic. She was requesting further therapies. I have discussed in detail including other options including amiodarone and repeat ablation with possibility of pacemaker if she gets a heart block. Very extensive discussion patient decided to try amiodarone first which I agree is a first choice. This is controlled her arrhythmias and she has not had any more symptoms. I am going to reduce amiodarone to 100 mg daily. Plan will be to go down to 100 mg on Friday and Friday if she remains asymptomatic. We will check some baseline lab work. Assessment & Plan (06/10/2019 9:40 AM EST): Difficult to control atrial tachycardia and failed ablation as above due to para hisain focus of atrial tachycardia with mild AV carmen injury on low wattage ablation. He was on Tikosyn and he had more episodes and hence we are to start metoprolol and despite that she had 8% burden of atrial tachycardia for which she is quite symptomatic. She is requesting further therapies. I have discussed in detail including other options including amiodarone and repeat ablation with possibility of pacemaker if she gets a heart block. Very extensive discussion patient decided to try amiodarone first which I agree is a first choice. This is controlled her arrhythmias and she has not had any more symptoms. I am going to continue this for another 6 months and reduce the doses down when we see her next time. And then we can decide on a long-term strategy of how to control her arrhythmias with either cutting down the doses of amiodarone and long run or proceed with ablation in next few years. Assessment & Plan (04/29/2019 1:33 PM EST): Difficult to control atrial tachycardia and failed ablation as above due to para history and focus of atrial tachycardia with mild AV carmen injury on low wattage ablation. She is not currently on Tikosyn which does not affect the AV carmen conduction. He had more episodes and hence we are to start metoprolol and despite that she had 8% burden of atrial tachycardia for which she is quite symptomatic. She is requesting further therapies. I have discussed in detail including other options including amiodarone and repeat ablation with possibility of pacemaker if she gets a heart block. Very extensive discussion patient decided to try amiodarone first which I agree is a first choice. We will first try to control her arrhythmia and see if her symptomatology significantly improves. And then we can decide on a long-term strategy of how to control her arrhythmias with either cutting down the doses of amiodarone and long run or proceed with ablation in next few years. Plan will be she will stop her Tikosyn for 10 days and start amiodarone loading 400 twice daily for 14 days and then take 200 mg once a day. I did tell her if the heart rate goes less than 40 to 45 bpm then she will reduce her metoprolol to just 25 mg once a day. Assessment & Plan (04/01/2019 2:13 PM EST): Difficult to control atrial tachycardia and failed ablation as above due to para history and focus of atrial tachycardia with mild AV carmen injury on low wattage ablation. She is not currently on Tikosyn which does not affect the AV carmen conduction. Looks like she is maintaining well. I will do a 7-day heart monitor to reevaluate her arrhythmia burden. She did well in the hospital and did not have much arrhythmias. I am hoping if this will work then we may be able to avoid any AV carmen agents as well as further ablation which may get her pacemaker. Assessment & Plan (03/30/2019 10:58 AM EST): Patient with episodes of atrial tachycardia which have lasted for few seconds to minutes over the course the last year. She has been given different medications such as flecainide and metoprolol with no good effect. She is also undergone an ablation which was unsuccessful. She was seen by her transportation associate who recommended Tikosyn loading therefore she presented to [facility] on 03/29. Patient appears to be tolerating the medication without difficulty. She did convert to normal sinus rhythm. Currently her heart rates are in the 60s. However this morning she was noted to have an elongated NV interval at 0.36 therefore metoprolol was discontinued. -Continue Tikosyn 500mcg po bid -Cardiology to follow closely -Magnesium 1.8, cardiology recommends greater than 2 therefore will be given magnesium sulfate 2 g -Continue cardiac monitoring Anxiety 03/29/2019 Assessment & Plan (02/26/2024 9:49 AM EDT): Stable, managed on clonazepam 0.5mg in AM. Denies side effects. She is coping appropriately with stressors at this time. Will continue to monitor. Assessment & Plan (08/27/2023 12:05 PM EDT): Stable, managed on clonazepam 0.5mg in AM. Denies side effects. Discussed tapering off this in the future. She will consider when at a less stressful time. Also discussed cutting back on ETOH and she will work on this. Assessment & Plan (03/29/2019 2:57 PM EST): Continue celexa and clonazepam Tobacco dependence syndrome 04/11/2017 Assessment & Plan (02/26/2024 9:50 AM EDT): Strongly encouraged complete cessation. Assessment & Plan (08/27/2023 12:03 PM EDT): Strongly encouraged complete cessation. Assessment & Plan (02/26/2022 10:40 AM EDT): Currently resistant to quitting smoking. However, reviewed PFT findings demonstrating technically mild COPD but with flow-volume loop raises concern for essentially moderate obstructive disease. Encouraged to reconsider and would be happy to see sooner to to focus on smoking cessation if she is willing. Assessment & Plan (11/29/2021 9:45 AM EDT): Ongoing tobacco use, patient not interested in quitting at this time. Will readdress at follow-up visit. Assessment & Plan (03/29/2019 2:57 PM EST): Pt smokes 5-6 cigs per day Nicotine patch Resolved Problems Problem Noted Date Diagnosed Date Resolved Date Chronic obstructive pulmonary disease 02/26/2022 07/25/2023 Overview (02/26/2022): Mild airflow obstruction with mildly reduced diffusion capacity on PFT 01/31/2022 Assessment & Plan (02/26/2022 10:41 AM EDT): Mild COPD based on PFTs. Encouraged tobacco cessation. Recommend empiric trial of LAMA therapy. Given 2-week sample of Spiriva Respimat, 2 inhalations once daily. Does not appear covered by insurance thus if patient feels significant clinical benefit, would change to Incruse Ellipta. No indication for albuterol at this time. Encounters Date Type Department Care Team Description 12/01/2024 Telephone [facility] [address] [place] [address] Nayeli Marie MA Appointment 11/10/2024 Refill [facility] [address] [place] [address] Zora Gallagher CNP Medication Refill 11/09/2024 10:30 AM EDT Office Visit [facility] [address] [place] [address] [address]rd Floor, [address] [place] [address] Christine Hernandez CNP Atrial fibrillation, unspecified type (Primary Dx); Paroxysmal supraventricular tachycardia 11/09/2024 9:30 AM EDT Procedure visit [facility] [address] [place] [id number] Alyssa Helms MD Rotator cuff arthropathy of left shoulder (Primary Dx) 11/09/2024 7:14 AM EDT - 11/09/2024 11:59 PM EDT Hospital Encounter [address] [address] Alyssa Helms MD Discharge Disposition: Home or Self Care 11/03/2024 Ancillary Orders [address] [address] Alyssa Helms MD Localized osteoarthritis of shoulder regions, bilateral (Primary Dx) 11/01/2024 10:34 AM EDT - 11/01/2024 11:59 PM EDT Hospital Encounter [address] [address] Alyssa Helms MD Discharge Disposition: Home or Self Care 11/01/2024 10:30 AM EDT Office Visit [facility] [address] [place] [id number] Alyssa Helms MD Rotator cuff arthropathy of left shoulder (Primary Dx) from Last 3 Months Immunizations Immunization Administration Dates Next Due COVID-19 (Pre-10/23) Moderna Vaccine, mRNA, PF 08/10/2020,07/13/2020 INFLUENZA, SPLIT VIRUS, TRIVALENT PF 03/15/2015 INFLUENZA, SPLIT VIRUS, TRIV ALENT W/ PRESERVATIVE IM 04/28/2015 Influenza High-Dose Quadriva lent Preservative Free IM 02/28/2022,02/15/2021,02/24/2020 Influenza High-Dose Trivalen t Preservative Free IM 02/26/2024,03/31/2019() Influenza Quadrivalent MDCK Preservative Free IM 02/24/2018 Influenza Quadrivalent Preservative Free IM 09/2016 Influenza trivalent preserva tive free intradermal 02/16/2014,03/04/2013 Influenza, Unspecified Formulation 03/23/2019, Pneumococcal conjugate PCV13 04/22/2019,03/31/20 19() Pneumococcal polysaccharide PPSV23 06/29/2020 Td (adult) 5 Lf Tetanus Toxo id, PF, Adsorbed 07/22/2005 Tdap 04/18/2017 Zoster live 11/25/2013 Zoster recombinant 12/30/2023 Family History Medical History Relation Comments Asthma Neg Hx Breast cancer Neg Hx COPD Neg Hx Relation Status Comments Father Mother Social History Tobacco Use Types Packs/Day Years Used Date Smoking Tobacco: Every Day Cigarettes 0.5 40 Smokeless Tobacco: Never Tobacco Cessation:Ready to Q uit: Not Asked; Counseling Given: Not Answered Comments:Currenlty 1/4ppd Alcohol Use Standard Drinks/Week Comments Yes [...] AM EST Sexual Orientation Not on file Last Filed Vital Signs Vital Sign Reading Time Taken Comments Blood Pressure 112/70 11/09/2024 10:23 AM EDT Pulse 78 11/09/2024 10:23 AM EDT Temperature 36.3 C (97.4 F) 10/13/2024 11:53 AM EDT Respiratory Rate 17 09/29/2023 3:25 PM EDT Oxygen Saturation 92% 11/09/2024 10:23 AM EDT Inhaled Oxygen Concentration - - Weight 58.5 kg (129 lb) 11/09/2024 10:23 AM EDT Height 170.2 cm (5' 7.01 ) 11/09/2024 10:23 AM E DT Body Mass Index 20.2 11/09/2024 10:23 AM EDT Plan of Treatment Upcoming Encounters Date Type Department Care Team (Late st Contact Info) Description 02/26/2024 Procedure Pass [address] [address] 02/25/2025 10:30 AM EDT Appointment [address] [address] Zora Gallagher, MU [address] [address] 03/11/2025 9:15 AM EDT Office Visit [facility] [address] [place] [id number] Alyssa Helms MD [address] [place] [address] [facility] [place] [address] [email or web address] 04/27/2025 9:00 AM EST Office Visit [address] [address] Zora Gallagher CNP 234 [facility] [address] [place] [address] 05/24/2025 10:00 AM EST Office Visit [facility] [address] Floor, [address] [place], [place] [id number] John Bean MD [address] [place] [id number] Health Maintenance Due Date Last Done Comments COLOGUARD 1998 COLONOSCOPY 1998 COLORECTAL CANCER SCREENING 1998 FIT TEST 1998 FOBT 1998 SIGMOIDOSCOPY 1998 VIRTUAL COLONOSCOPY 1998 LUNG CANCER SCREENING (LDCT Only) 10/28/2003 RSV VACCINE (1 - Risk 60-74 years 1-dose series) 2013 COVID-19 VACCINE ( season) 2024 05/28/2021, 08/10/2020, 07/13/2020 MAMMOGRAM 02/13/2024 02/12/2023, 10/18, 07/20/2020, Additional history exists ZOSTER VACCINES (3 of 3) 02/24/2024 12/30/2023, 11/16 DEPRESSION SCREENING 08/26/2024 08/27/2023 SMOKING Hx and SMOKELESS TOBACCO SCREENING 11/09/2025 11/09/2024 Adult Td,Tdap Booster 04/18/2027 04/18/2017, 006 LIPID PANEL 08/31/2028 09/01/2023, 06/19, 06/29/2020, Additional history exists HEPATITIS C SCREENING Completed 06/29/2020, 021 PNEUMOCOCCAL VACCINES (50+ years) Completed 06/29/2020, 04/22/2019 OSTEOPOROSIS SCREENING INITIAL (ONE-TIME) Completed 07/20/2020 HEPATITIS A VACCINES Aged Out No long er eligible based on patient's age to complete this topic HIB VACCINES Aged Out No longer eligi ble based on patient's age to complete this topic MENINGOCOCCAL VACCINES (ACWY) Aged Out No longer eligible based on patient's age to complete this topic MENINGOCOCCAL VACCINES (B) Aged Out N o longer eligible based on patient's age to complete this topic Medical Devices Not on file Procedures Procedure Name Priority Date/Time Associated Diagnosis Comments XR SHOULDER 2 VIEWS (LEFT) Routine 11/01/2024 10:47 AM EDT Rotator cuff arthropathy of left shoulder LIPID PANEL Routine 09/01/2023 10:38 AM EDT Screening for condition BI MAMMOGRAM SCREENING WITH TOMOSYNTHESIS WITH CAD (BILATERAL) Routine 02/12/2023 11:11 AM EDT Encounter for screening mammogram for malignant neoplasm of breast BD DXA AXIAL (SPINE) WITH HIP Routine 07/20/2020 8:32 AM EST Osteopenia, unspecified location HEPATITIS C ANTIBODY, QUALITATIVE Routine 06/29/2020 10:01 AM EST Screening for condition from Last 3 Months or Most Recently Relevant to Health Maintenance Results * XR SHOULDER 2 VIEWS (LEFT) (11/01/2024 10:47 AM EDT) Narrative SYSTEMGENERATED, DOCUMENTATION - 11/01/2024 10:48 AM EDT This image report has been auto-finalized and has not been read by a Radiologist. Interpretation has been included in the provider encounter note for this date of service. us Alyssa Helms MD IMG XR UPPER EXTREMITY Fi nal Result * (ABNORMAL) Lipid panel (09/01/2023 10:38 AM EDT) HDL 77 mg/dL [facility] Comment: Interpretation <40 mg/dL: Low HDL cholesterol (major risk factor for CHD) Greater than or equal to 60 mg/dL: High HDL cholesterol ( negative risk factor for CHD) HDL - cholesterol is affected by a number of factors, e.g. smoking, excerise, hormones, sex and age. CHOLESTEROL 239 0 - 240 mg/dL [facility] TRIGLYCERIDES 83 30 - 160 mg/dL [facility] LDL 145(H) 50 - 129 mg/dL [facility] Comment: LDL levels in terms of risk for coronary heart disease: <100 mg/dL: Optimal 100-129 mg/dL: Near or above optimal 130-159 mg/dL: Borderline high 160-189 mg/dL: High >190 mg/dL: Very High CARDIAC RISK RATIO 3.1(L) 3.3 - 4.4 [facility] Blood 09/01/2023 10:3 8 AM EDT 09/01/2023 10:41 AM EDT Zora Gallagher [facility] LAB BLOOD ORDERABLES Final R esult [facility] [address] [place] [address] * BI MAMMOGRAM SCREENING WITH TOMOSYNTHESIS WITH CAD (BILATERAL) (02/12/2023 11:11 AM EDT) Anatomical Region Laterality Modality Breast Left, Breast Right, Breast Bilateral Bila teral Mammography 02/20/2023 2:47 PM EDT Impressions 02/20/2023 2:48 PM EDT No mammographic evidence of malignancy in either breast. Annual screening mammography is recommended. BI-RADS CATEGORY: 1 - Negative. The patient will be notified of the results and recommendations. Narrative 02/20/2023 2:48 PM EDT BI MAMMOGRAM SCREENING WITH TOMOSYNTHESIS WITH CAD (BILATERAL) Additional patient information: Screening. COMPARISON: Comparison is made with relevant prior imaging. Breast composition: There are scattered fibroglandular densities. FINDINGS: No abnormal masses, suspicious calcifications, or other significant findings are identified mammographically in either breast. Procedure Note Kimberley [place] MD - 02/20/2023 BI MAMMOGRAM SCREENING WITH TOMOSYNTHESIS WITH CAD (BILATERAL) Additional patient information: Screening. COMPARISON: Comparison is made with relevant prior imaging. Breast composition: There are scattered fibroglandular densities. FINDINGS: No abnormal masses, suspicious calcifications, or other significantfindings are identified mammographically in either breast. IMPRESSION: No mammographic evidence of malignancy in either breast. Annual screening mammography is recommended. BI-RADS CATEGORY: 1 - Negative. The patient will be notified of the results and recommendations. us Chidi Torres MD IMG MG EXAMS Final Result * BD DXA AXIAL (SPINE) WITH HIP (07/20/2020 8:32 AM EST) Anatomical Region Laterality Modality Bone Density Bone Density 07/20/2020 8:34 AM EST Narrative 07/20/2020 8:39 AM EST This is a 64-year-old female. Menopause age: 52. The comparison examination is dated 10/26/2009. Evaluation of the lumbar spine and hips was performed and appears to be technically adequate. Total bone mineral density in the L1-L4 vertebral bodies was calculated at 1.025 gm/cm2 with a T score of 0.2. This falls within the WHO classification of normal. This represents a BMD change versus previous of -3.5% Total bone mineral density in the right proximal femur was calculated at 0.786 gm/cm2 with a T-score of -1.3 falling within the WHO classification of osteopenia. This represents a BMD change versus previous of -12.9%. Right femoral neck bone mineral density was calculated at 0.706 gm/cm2 with a T-score of -1.3. Total bone mineral density in the left proximal femur was calculated at 0.802 gm/cm2 with a T-score of -1.1 falling within the WHO classification of osteopenia. This represents a BMD change versus previous of -16.6% Bone mineral density in the left femoral neck was calculated at 0.652 gm/cm2 with a T-score of -1.8. FRAX: WHO Fracture Risk Assessment 10 year fracture risk Major Osteoporotic Fracture: 9.7% . Hip Fracture: 1.3% . CONCLUSION: L1-L4 vertebral body BMD: Normal. Bilateral proximal femoral BMD: Osteopenia. Procedure Note Zbigniew Rodriguez MD - 07/20/2020 This is a 64-year-old female. Menopause age: 52. The comparison examination is dated 10/26/2009. Evaluation of the lumbar spine and hips was performed and appears to betechnically adequate. Total bone mineral density in the L1-L4 vertebral bodies was calculated at1.025 gm/cm2 with a T score of 0.2. This falls within the WHOclassification of normal. This represents a BMD change versus previous of-3.5% Total bone mineral density in the right proximal femur was calculated at0.786 gm/cm2 with a T-score of -1.3 falling within the WHO classificationof osteopenia. This represents a BMD change versus previous of -12.9%.Right femoral neck bone mineral density was calculated at 0.706 gm/ad8fbeq a T-score of -1.3. Total bone mineral density in the left proximal femur was calculated at0.802 gm/cm2 with a T-score of -1.1 falling within the WHO classificationof osteopenia. This represents a BMD change versus previous of -16.6%Bone mineral density in the left femoral neck was calculated at 0.652gm/cm2 with a T-score of -1.8. FRAX: WHO Fracture Risk Assessment 10 year fracture risk Major Osteoporotic Fracture: 9.7% . Hip Fracture: 1.3% . CONCLUSION: L1-L4 vertebral body BMD: Normal. Bilateral proximal femoral BMD: Osteopenia. us Chidi Torres MD IMG BD BONE DENSITY DEXA Glenna l Result * Hepatitis C antibody, qualitative (06/29/2020 10:01 AM EST) HCV NON-REACTIV E NON-REACTI VE [facility] Blood 06/29/2020 10:0 1 AM EST 06/29/2020 10:03 AM EST us Chidi Torres MD LAB BLOOD ORDERABLES Final Re sult [facility] [address] [place] [address] from Last 3 Months or Most Recently Relevant to Health Maintenance Insurance [employer] MEDEX SUPPLEMENT MEDICARE PART A & B [employer] MEDEX SUPPLEMENT MEDICARE PART A & B [employer] MEDEX SUPPLEMENT MEDICARE PART A & B [place] [employer] MEDEX SUPPLEMENT MEDICARE PART A & B [employer] MEDEX SUPPLEMENT MEDICARE PART A & B [employer] MEDEX SUPPLEMENT MEDICARE PART A & [place] [address] [place] [address] [employer]OSS MEDEX SUPPLEMENT MEDICARE PART A & B [employer] MEDEX SUPPLEMENT MEDICARE PART A & B [employer] MEDEX SUPPLEMENT MEDICARE PART A & B Member Subscriber Plan / Payer ( fective 2019-Present) Name:Stoney Garglis Member ID:[id number] Relation to Subscriber:Self Name:BritanyRenetta vigil Subscriber ID:[id number] Payer ID:[id number] Group ID:Not on file Type:Medicare Address: [facility] Auto I.D. [facility]. [address] [facility] [place] [address] Advance Directives For more information, please contact: [phone] (9AM - 5PM Velma/[facility], Friday-Friday) Documents on File Type Date Recorded Patient Premium Service Representative Expl anation Healthcare Proxy 04/01/2019 12:14 PM * Full Code (Latest Code Status on File) Date Activated Date Inactivated Comments 04/16/2021 10:59 AM Question Answer Comments Code Status Confirmed With: Patient * Full Code (Confirmed) Date Activated Date Inactivated Comments 03/29/2019 3:42 PM 03/31/2019 2:24 PM Question Answer Comments Code Status Confirmed With: Patient * DNR/DNI (No CPR/No Intubation) Date Activated Date Inactivated Comments 03/29/2019 2:55 PM 03/29/2019 3:42 PM Question Answer Comments Code Status Confirmed With: Patient Care Teams Touch Up Carver Relationship Specialty Start Date End Date Zora Gallagher CNP [address] [place] [address] 7 [place] [address] PCP - General Nurse Practitioner 08/14/23 Billy Roman MD [address] [address] [email or web address] Cardiology 11/12/21 Zora Gallagher CNP [address] [place] [address] 7 [place] [address] Insurance Assigned Provider 08/22/24 Additional Source Comments The information contained in this document represents components of the legal health record. It is not the complete legal health record.[facility]
--- OUTSIDE RECORDS SUMMARY | 2025-01-25 11:41 | XMS_ITS | Encounter Summary ---
Author Organization [facility] Address [address] [place] [address] Phone Care Team Providers Care Clinical Informatics Director Name Role Phone Chidi Torres MD Primary Care Provider Chidi Torres MD Unavailable Billy Roman MD Unavailable Zora Gallagher CNP Primary Care Provider Chidi Torres MD Unavailable [phone] Stefanie Dow MD Unavailable Zora Gallagher CNP Unavailable Encounter Details Date Type Department Care Team (Late st Contact Info) Description 12/19/2020 Procedure Pass [facility] Electrophysiology Lab [address] [place] [address] Social History Tobacco Use Types Packs/Day Years [...] st Contact Info) Description 02/26/2024 Procedure Pass [facility] [address] [place] [address] 02/25/2025 10:30 AM EDT Appointment [facility] [address] [place] [address] Zora Gallagher, CUSTOMER SUCCESS ASSOCIATE 234 [facility] 7 [place] [address] 03/11/2025 9:15 AM EDT Office Visit [facility] Orthopedics & Sports Medicine [address] [place] [address] Alyssa Helms MD [address] [place] [address] Orthopedics & Sports Medicine, [facility] [place] [address] [email or web address] 04/27/2025 9:00 AM EST Office Visit [address] [address] Aileen Zora, CUSTOMER SUCCESS ASSOCIATE [address] [address] 05/24/2025 10:00 AM EST Office Visit [facility] [address] [place] [address] [address]rd Floor, [address] [place] [address] John Bean MD [address] [place] [address] documented as of this encounter Visit Diagnoses [...] documented as of this encounter Care Teams Clinical Informatics Director Relationship Specialty Start Date End Date Chidi Torres MD [address] [place] [address] [email or web address] PCP - General 03/06/17 08/13/23 Zora Gallagher CNP [address] [place] [address] [email or web address] PCP - General Nurse Practitioner 08/14/23 Chidi Torres MD [address] [place] [address] [email or web address] Insurance Assigned Provider 08/25/21 11/11/21 Billy Roman MD [address] [place] [email or web address] Cardiology 11/12/21 Chidi Torres MD [address] [place] [address] [email or web address] Insurance Assigned Provider 08/25/21 08/23/23 Stefanie Dow MD [address] [place] [address], [address] [place] [address] [email or web address] Insurance Assigned Provider 08/23/23 08/22/24 Zora Gallagher CNP [address] [place] [address], [address] [place] [address] [email or web address] Insurance Assigned Provider 08/22/24 documented as of this encounter Additional Source Comments The information contained in this document represents components of the legal health record. It is not the complete legal health record.[facility]
--- OUTSIDE RECORDS SUMMARY | 2025-01-25 11:41 | XMS_ITS | Encounter Summary ---
Author Organization [facility] Address [address] [place] [address] Phone Care Team Providers Care Aeronautical Products Sales Engineer Name Role Phone Chidi Torres MD Primary Care Provider Chidi Torres MD Unavailable Billy Roman MD Unavailable Zora Gallagher CNP Primary Care Provider Chidi Torres MD Unavailable Stefanie Dow MD Unavailable Zora Gallagher CNP Unavailable Encounter Details Date Type Department Care Team (Late st Contact Info) Description 11/01/2021 Procedure Pass [facility], [address] [address] Social History Tobacco Use Types Packs/Day Years [...] st Contact Info) Description 02/26/2024 Procedure Pass [facility] [address] [place] [address] 02/25/2025 10:30 AM EDT Appointment [facility] [address] [place] [address] Zora Gallagher, VIDEO TECHNICIAN 234 [facility] 7 [place] [address] 03/11/2025 9:15 AM EDT Office Visit [facility] Orthopedics & Sports Medicine [address] [place] [address] Alyssa Helms MD [address] [place] [address] Orthopedics & Sports Medicine, [facility] [place] [address] [email or web address] 04/27/2025 9:00 AM EST Office Visit [address] [address] Zora Gallagher, VIDEO TECHNICIAN [address] [address] 05/24/2025 10:00 AM EST Office Visit [facility] [address] [place] [address] 3rd Floor, [address] [place] [address] John Bean MD [address] [place] [address] documented as of this encounter Visit Diagnoses Not on filedocumented in this encounter Additional Health Concerns Infection Onset Date Last Indicated Resolved Time CoV-Presumed 01/05/2022 01/05/2022 01/26/2022 1:21 AM EDT Assessment Noted Time PHQ-2 Depression Total Score: 0 11/24/19 9:14 AM EDT documented as of this encounter Care Teams Aeronautical Products Sales Engineer Relationship Specialty Start Date End Date Chidi Torres MD [address] [place] [address] 7 [place] [phone] [email or web address] PCP - General 03/06/17 08/13/23 Zora Gallagher CNP [address] [place] [address] 7 [place] [address] PCP - General Nurse Practitioner 08/14/23 Chidi Torres MD [address] [place] [address] 7 [place] [address] [email or web address] Insurance Assigned Provider 08/25/21 11/11/21 Billy Roman MD [address] [place] [address] [email or web address] Cardiology 11/12/21 Chidi Torres MD [address] [place] [address] 7 [place] [address] [email or web address] Insurance Assigned Provider 08/25/21 08/23/23 Stefanie Dow MD [address] [place] [address] 7 [place] [phone] Insurance Assigned Provider 08/23/23 08/22/24 Zora Gallagher CNP [address] [place] [address] 7 [place] [address] [email or web address] Insurance Assigned Provider 08/22/24 documented as of this encounter Additional Source Comments The information contained in this document represents components of the legal health record. It is not the complete legal health record.[facility]
--- OUTSIDE RECORDS SUMMARY | 2025-01-25 11:42 | XMS_ITS | Encounter Summary ---
Author Organization [facility] Address [address] [place] [address] Phone Care Team Providers Care Puller Over Name Role Phone Chidi Torres MD Primary Care Provider [phone] Chidi Torres MD Unavailable Billy Roman MD Unavailable [phone] Zora Gallagher CNP Primary Care Provider Chidi Torres MD Unavailable [phone] Stefanie Dow MD Unavailable [phone] Zora Gallagher CAREER COACH Unavailable [phone] Encounter Details Date Type Department Care Team (Late st Contact Info) Description 08/09/2021 Procedure Pass [facility] EKG [address] [place] [address] Social History Tobacco Use Types Packs/Day Years [...] st Contact Info) Description 02/26/2024 Procedure Pass [facility] [address] [place] [address] 02/25/2025 10:30 AM EDT Appointment [facility] [address] [place] [address] Zora Gallagher, CAREER COACH 234 [facility] 7 [place] [address] 03/11/2025 9:15 AM EDT Office Visit [facility] Orthopedics & Sports Medicine [address] [place] [address] Alyssa Helms MD [address] [place] [address] Orthopedics & Sports Medicine, [facility] [place] [address] [email or web address] 04/27/2025 9:00 AM EST Office Visit [address] [address] Zora Gallagher, CAREER COACH 234 [facility] 7 [place] [address] 05/24/2025 10:00 AM EST Office Visit [facility] [address] [place] [address] [address]rd Floor, [address] [place] [address] John Bean MD [address] [place] [address] documented as of this encounter Visit Diagnoses Not on filedocumented in this encounter Additional Health Concerns Infection Onset Date Last Indicated Resolved Time CoV-Risk 10/03/2021 10/03/2021 10/14/2021 1:22 AM EDT CoV-Presumed 01/05/2022 01/05/2022 01/26/2022 1:21 AM EDT Assessment Noted Time PHQ-2 Depression Total Score: 0 11/24/19 9:14 AM EDT documented as of this encounter Care Teams Puller Over Relationship Specialty Start Date End Date Chidi Torres MD [address] [place] [address] 7 [place] [address] [email or web address] PCP - General 03/06/17 08/13/23 Zora Gallagher CNP [address] [place] [address] 7 [place] [address] [email or web address] PCP - General Nurse Practitioner 08/14/23 Chidi Torres MD [address] [place] [address] 7 [place] [address] [email or web address] Insurance Assigned Provider 08/25/21 11/11/21 Billy Roman MD [address] [place] [address] [email or web address] Cardiology 11/12/21 Chidi Torres MD [address] [place] [address] 7 [place] [address] [email or web address] Insurance Assigned Provider 08/25/21 08/23/23 Stefanie Dow MD [address] [place] [address], [facility] 7 [place] [address] [email or web address] Insurance Assigned Provider 08/23/23 08/22/24 Zora Gallagher CNP [address] [place] [address] 7 [place] [address] [email or web address] Insurance Assigned Provider 08/22/24 documented as of this encounter Additional Source Comments The information contained in this document represents components of the legal health record. It is not the complete legal health record.[facility]
--- OUTSIDE RECORDS SUMMARY | 2025-01-25 11:42 | XMS_ITS | Encounter Summary ---
Author Organization [facility] Address [address] [place] [address] Phone Care Team Providers Care Industrial Laborer Name Role Phone Chidi Torres MD Primary Care Provider Chidi Torres MD Unavailable Billy Roman MD Unavailable [phone] Zora Gallagher CNP Primary Care Provider Chidi Torres MD Unavailable Stefanie Dow MD Unavailable Zora Gallagher CNP Unavailable Encounter Details Date Type Department Care Team (Late st Contact Info) Description 09/14/2021 Procedure Pass [facility], [address] [place] [address] Social History Tobacco Use Types Packs/Day Years [...] st Contact Info) Description 02/26/2024 Procedure Pass [facility] [address] [place] [address] 02/25/2025 10:30 AM EDT Appointment [facility] [address] [place] [address] Zora Gallagher, ELECTROPLATING WORKER 234 [facility] 7 [place] [address] 03/11/2025 9:15 AM EDT Office Visit [facility] Orthopedics & Sports Medicine [address] [place] [address] Alyssa Helms MD [address] [place] [address] Orthopedics & Sports Medicine, [facility] [place] [address] [email or web address] 04/27/2025 9:00 AM EST Office Visit [address] [address] Zora Gallagher, ELECTROPLATING WORKER [address] [address] 05/24/2025 10:00 AM EST Office Visit [facility] [address] [place] [address] 3rd Floor, [address] [place] [address] John Bean MD [address] [place] [address] documented as of this encounter Visit Diagnoses Not on filedocumented in this encounter Additional Health Concerns Infection Onset Date Last Indicated Resolved Time CoV-Risk 10/03/2021 10/03/2021 10/14/2021 1:22 AM EDT CoV-Presumed 01/05/2022 01/05/2022 01/26/2022 1:21 AM EDT Assessment Noted Time PHQ-2 Depression Total Score: 0 11/24/19 9:14 AM EDT documented as of this encounter Care Teams Industrial Laborer Relationship Specialty Start Date End Date Chidi Torres MD [address] [place] [address], [facility] 7 [place] [address] [email or web address] PCP - General 03/06/17 08/13/23 Zora Gallagher CNP [address] [place] [address] 7 [place] [address] [email or web address] PCP - General Nurse Practitioner 08/14/23 Chidi Torres MD [address] [place] [address] 7 [place] [address] [email or web address] Insurance Assigned Provider 08/25/21 11/11/21 Billy Roman MD [address] [place] [address] [email or web address] Cardiology 11/12/21 Chidi Torres MD [address] [place] [address] 7 [place] [address] [email or web address] Insurance Assigned Provider 08/25/21 08/23/23 Stefanie Dow MD [address] [place] [address], [facility] 7 [place] [address] [email or web address] Insurance Assigned Provider 08/23/23 08/22/24 Zora Gallagher CNP [address] [place] [address], [facility] 7 [place] [address] [email or web address] Insurance Assigned Provider 08/22/24 documented as of this encounter Additional Source Comments The information contained in this document represents components of the legal health record. It is not the complete legal health record.[facility]
--- OUTSIDE RECORDS SUMMARY | 2025-01-25 11:42 | XMS_ITS | Encounter Summary ---
Author Organization [facility] Address [address] [place] [address] [address] [place] [address] Phone Care Team Providers Care Color Worker Name Role Phone Chidi Torres MD Primary Care Provider Chidi Torres MD Unavailable Chidi Torres MD Unavailable Billy Roman MD Unavailable Zora Gallagher CNP Primary Care Provider Chidi Torres MD Unavailable Stefanie Dow MD Unavailable [phone] Zora Gallagher NANOELECTRONICS ENGINEER Unavailable Reason for Referral * MRI/CAT Scan - Closed Specialty Diagnoses / Procedures Referred By Contabisai t Referred To Contact Diagnoses Paroxysmal supraventricular tachycardia Procedures MCT (Mobile Cardiac Telemetry) Jennifer Dumont MD Phone: tel: Referral ID Status Reason Start Date Expiration Date Visits Re quested Visits Authorized [id number] Closed 04/01/2019 03/31/2020 1 1 Encounter Details Date Type Department Care Team (Latest Contact Info) Description 04/01/2019 Ancillary [facility] 3rd Floor, [address] [place], [place] [id number] Jennifer Dumont MD [address] [address] Paroxysmal supraventricular tachycardia Social History Tobacco Use Types Packs/Day Years [...] st Contact Info) Description 02/26/2024 Procedure Pass [address] [address] 02/25/2025 10:30 AM EDT Appointment [address] [address] Zora Gallagher, MU 234 [facility] 7 [place] [address] 03/11/2025 9:15 AM EDT Office Visit [facility] [address] [place] [address] Alyssa Hemls MD [address] [place] [address] Orthopedics & Sports Medicine, [facility] [place] [address] [email or web address] 04/27/2025 9:00 AM EST Office Visit [facility] [address] [place] [address] Zora Gallagher CNP 234 [facility], [address] [address] 05/24/2025 10:00 AM EST Office Visit [facility] [address] [place] [address] 3rd Floor, [address] [place] [address] John Bean MD 50 [place] [address] [email or web address] Scheduled Orders Name Type Priority Associated Diagnoses Orde r Schedule MCT (Mobile Cardiac Telemetry) Cardiac Monitors Routine Paroxysmal supraventricular tachycardia Expected: 04/08/2019, Expires: 03/31/2020 documented as of this encounter Visit Diagnoses Diagnosis Paroxysmal supraventricular tachycardia documented in this encounter Additional Health Concerns [...] documented as of this encounter Care Teams Color Worker Relationship Specialty Start Date End Date Chidi Torres MD 234 [facility], [address] [place] [address] [email or web address] PCP - General 03/06/17 08/13/23 Zora Gallagher CNP [address] [place] [address], [address] [place] [address] PCP - General Nurse Practitioner 08/14/23 Chidi Torres MD [address] [place] [address], [address] [place] [id number] Insurance Assigned Provider 03/25/20 07/22/20 Chidi Torres MD [address] [place] [address], [facility] 7 [place] [id number] Insurance Assigned Provider 08/25/21 11/11/21 Billy Roman MD [address] [place] [address] [email or web address] Cardiology 11/12/21 Chidi Torres MD [address] [place] [address], [address] [place] [address] [email or web address] Insurance Assigned Provider 08/25/21 08/23/23 Stefanie Dow MD [address] [place] [address], [address] [place] [phone] Insurance Assigned Provider 08/23/23 08/22/24 Zora Gallagher CNP [address] [place] [address], [address] [place] [id number] Insurance Assigned Provider 08/22/24 documented as of this encounter Additional Source Comments The information contained in this document represents components of the legal health record. It is not the complete legal health record.[facility]
--- OUTSIDE RECORDS SUMMARY | 2025-01-25 11:42 | XMS_ITS | Encounter Summary ---
Author Organization [facility] Address [address] [place] [address] Phone Care Team Providers Care Patternmaker Apprentice Wood Name Role Phone Chidi Torres MD Primary Care Provider Chidi Torres MD Unavailable Chidi Torres MD Unavailable Billy Roman MD Unavailable Zora Gallagher RAILROAD FIRER Primary Care Provider [phone] Chidi Torres MD Unavailable Stefanie Dow MD Unavailable [phone] Zora Gallagher RAILROAD FIRER Unavailable Encounter Details Date Type Department Care Team (Late st Contact Info) Description 05/23/2020 Procedure Pass [facility], [address] [place] [address] Social History Tobacco Use Types Packs/Day Years [...] - Inhaled Oxygen Concentration - - Weight 68 kg (150 lb) 05/25/2020 10:34 AM EST Height 172.7 cm (5' 8 ) 05/25/2020 10:34 AM EST Body Mass Index 22.81 05/25/2020 10:34 AM EST documented in this encounter Plan of Treatment Upcoming Encounters Date Type Department Care Team (Late st Contact Info) Description 02/26/2024 Procedure Pass [address] [address] 02/25/2025 10:30 AM EDT Appointment [address] [address] Zora Gallagher, MU [address] [address] 03/11/2025 9:15 AM EDT Office Visit [facility] Medicine [address] [place] [address] Alyssa Helms MD [address] [place] [address] Orthopedics & Sports Medicine, [facility] [place] [address] [email or web address] 04/27/2025 9:00 AM EST Office Visit [facility] [address] [place] [address] Zora Gallagher CNP 234 [facility] 7 [place] [address] 05/24/2025 10:00 AM EST Office Visit [facility] [address] [place] [address] 3rd Floor, [address] [place] [address] John Bean MD [address] [place] [address] [email or web address] documented as of this encounter Visit Diagnoses [...] Triage Form 04/25/2021 05/01/2021 05/10/2021 1:23 AM EST CoV-Risk 10/03/2021 10/03/2021 10/14/2021 1:22 AM EDT CoV-Presumed 01/05/2022 01/05/2022 01/26/2022 1:21 AM EDT Assessment Noted Time PHQ-2 Depression Total Score: 0 04/22/20 10:33 AM EST documented as of this encounter Care Teams Patternmaker Apprentice Wood Relationship Specialty Start Date End Date Chidi Torres MD [address] [place] [address] [email or web address] PCP - General 03/06/17 08/13/23 Zora Gallagher CNP [address] [place] [address] [place] [address] [email or web address] PCP - General Nurse Practitioner 08/14/23 Chidi Torres MD [address] [place], [place] [address] [place] [address] [email or web address] Insurance Assigned Provider 03/25/20 07/22/20 Chidi Torres MD [address] [place] [address] [place] [address] Insurance Assigned Provider 08/25/21 11/11/21 Billy Roman MD [address] [address] [email or web address] Cardiology 11/12/21 Chidi Torres MD [address] [place] [address], [address] [place] [address] Insurance Assigned Provider 08/25/21 08/23/23 Stefanie Dow MD [address] [place] [address], [address] [place] [address] Insurance Assigned Provider 08/23/23 08/22/24 Zora Gallagher CNP [address] [place] [address], [address] [place] [address] Insurance Assigned Provider 08/22/24 documented as of this encounter Additional Source Comments The information contained in this document represents components of the legal health record. It is not the complete legal health record.[facility]
--- OUTSIDE RECORDS SUMMARY | 2025-01-25 11:42 | XMS_ITS | Encounter Summary ---
Author Organization [facility] Address [address] [place] [address] Phone Care Team Providers Care Director Toxicology Name Role Phone Chidi Torres MD Primary Care Provider Chidi Torres MD Unavailable Billy Roman MD Unavailable [phone] Zoar Gallagher CNP Primary Care Provider Chidi Torres MD Unavailable Stefanie Dow MD Unavailable [phone] Zora Gallagher CNP Unavailable [phone] Encounter Details Date Type Department Care Team (Late st Contact Info) Description 03/21/2021 Procedure Pass [facility] Electrophysiology Lab [address] [place] [address] Social History Tobacco Use Types Packs/Day Years [...] st Contact Info) Description 02/26/2024 Procedure Pass [facility] 30 [place] [address] 02/25/2025 10:30 AM EDT Appointment [facility] 30 [place] [address] Zora Gallagher, QUICK TECHNICIAN 234 [facility] 7 [place] [address] 03/11/2025 9:15 AM EDT Office Visit [facility] Sports Medicine [address] [place] [address] Alyssa Helms MD [address] [place] [address] Orthopedics & Sports Medicine, [facility] [place] [address] [email or web address] 04/27/2025 9:00 AM EST Office Visit [address] [address] Zora Gallagher, QUICK TECHNICIAN [address] [address] 05/24/2025 10:00 AM EST Office Visit [facility] 22 [facility] 3rd Floor, [address] [place] [address] John Bean MD [address] [place] [address] documented as of this encounter Visit Diagnoses [...] Time PHQ-2 Depression Total Score: 0 11/24/19 21 9:14 AM EDT documented as of this encounter Care Teams Director Toxicology Relationship Specialty Start Date End Date Chidi Torres MD [address] [place] [address], [facility] 7 [place] [address] [email or web address] PCP - General 03/06/17 08/13/23 Zora Gallagher CNP [address] [place] [address] 7 [place] [address] PCP - General Nurse Practitioner 08/14/23 Chidi Torres MD [address] [place] [address] 7 [place] [address] Insurance Assigned Provider 08/25/21 11/11/21 Billy Roman MD [address] [place] [address] [email or web address] Cardiology 11/12/21 Chidi Torres MD [address] [place] [address] 7 [place] [phone] Insurance Assigned Provider 08/25/21 08/23/23 Stefanie Dow MD [address] [place] [address], [facility] 7 [place], [place] [address] Insurance Assigned Provider 08/23/23 08/22/24 Zora Gallagher CNP [address] [place] [address] 7 [place] [address] [email or web address] Insurance Assigned Provider 08/22/24 documented as of this encounter Additional Source Comments The information contained in this document represents components of the legal health record. It is not the complete legal health record.[facility]
--- OUTSIDE RECORDS SUMMARY | 2025-01-25 11:42 | XMS_ITS | Encounter Summary ---
Author Organization [facility] Address [address] [place] [address] Phone Care Team Providers Care Electromedical Equipment Technician Name Role Phone Chidi Torres MD Primary Care Provider Chidi Torres MD Unavailable Billy Roman MD Unavailable [phone] Zora Gallagher CNP Primary Care Provider Chidi Torres MD Unavailable Stefanie Dow MD Unavailable Zora Gallagher [facility] Unavailable [phone] Reason for Referral * MRI/CAT Scan - Closed Specialty Diagnoses / Procedures Referred By Contac t Referred To Contact Radiology Diagnoses Nonintractable headache, unspecified chronicity pattern, unspecified headache type Procedures MRI Brain Nirali Rausch MD [address]&[place] [address] Phone: tel: fax: Referral ID Status Reason Start Date Expiration Date Visits Re quested Visits Authorized [id number] Closed 09/14/2021 09/14/2022 1 1 Encounter Details Date Type Department Care Team (Latest Contact Info) Description 09/14/2021 Transcribe Orders Virtual Department 30 [place] [address] Nirali Rausch MD 3300 [facility] 3C&[place] [address] Nonintractable headache, unspecified chronicity pattern, unspecified headache type (Primary Dx) Social History Tobacco Use Types [...] st Contact Info) Description 02/26/2024 Procedure Pass [address] [address] 02/25/2025 10:30 AM EDT Appointment [address] [address] Zora Gallagher, MU [address] [address] 03/11/2025 9:15 AM EDT Office Visit [facility] Sports Medicine [address] [place] [address] Alyssa Helms MD [address] [place] [address] [facility] [place] [address] [email or web address] 04/27/2025 9:00 AM EST Office Visit [address] [address] Zora Gallagher CNP 234 [facility], [facility] 7 [place] [address] 05/24/2025 10:00 AM EST Office Visit [facility] [address] 3rd Floor, [address] [place] [address] John Bean MD [address] [place] [address] [email or web address] documented as of this encounter Results * MRI BRAIN WITH AND WITHOUT CONTRAST (09/28/2021 10:29 AM EDT) Anatomical Region Laterality Modality Head Magnetic Resonan ce 09/28/2021 4:13 PM EDT Impressions 09/28/2021 4:27 PM EDT Essentially normal study of the brain. No explanation for migraines. No significant changes from 06/12/2015. Narrative 09/28/2021 4:27 PM EDT HISTORY: Chronic migraines. COMPARISON: MRI brain 06/12/2015. TECHNIQUE: Precontrast and postcontrast sequences performed on a 1.5 Lizbeth high- field MRI scanner. FINDINGS: No intracranial hemorrhage or areas of acute ischemia. No evidence of intracranial masses. No suspicious white matter signal abnormalities. Ventricles are normal in size and configuration. Basal cisterns are patent. No evidence of abnormal enhancement. Normal flow-voids at the base of the skull. The paranasal sinuses and mastoid air cells are clear. Procedure Note Bi Zaragoza MD - 09/28/2021 HISTORY: Chronic migraines. COMPARISON: MRI brain 06/12/2015. TECHNIQUE: Precontrast and postcontrast sequences performed on a 1.5 Teslahigh- field MRI scanner. FINDINGS: No intracranial hemorrhage or areas of acute ischemia. No evidence ofintracranial masses. No suspicious white matter signal abnormalities. Ventricles are normal in size and configuration. Basal cisterns arepatent. No evidence of abnormal enhancement. Normal flow-voids at the base of the skull. The paranasal sinuses and mastoid air cells are clear. IMPRESSION: Essentially normal study of the brain. No explanation for migraines. Nosignificant changes from 06/12/2015. Nirali Rausch MD IMG MR HEAD/NECK Final R esult documented in this encounter Visit Diagnoses Diagnosis Nonintractable headache, unspecified chronicity pattern, unspecified headache type- Primary Nonintractable headache, unspecified chronicity pattern, unspecified headache type documented in this encounter Additional Health Concerns Infection Onset Date Last Indicated Resolved Time CoV-Risk 10/03/2021 10/03/2021 10/14/2021 1:22 AM EDT CoV-Presumed 01/05/2022 01/05/2022 01/26/2022 1:21 AM EDT Assessment Noted Time PHQ-2 Depression Total Score: 0 11/24/19 9:14 AM EDT documented as of this encounter Care Teams Electromedical Equipment Technician Relationship Specialty Start Date End Date Chidi Torres MD [address] [place] [address] [email or web address] PCP - General 03/06/17 08/13/23 Zora Gallagher CNP [address] [place] [address] [email or web address] PCP - General Nurse Practitioner 08/14/23 Chidi Torres MD [address] [place] [address] [email or web address] Insurance Assigned Provider 08/25/21 11/11/21 Billy Roman MD [address] [place] [address] [email or web address] Cardiology 11/12/21 Chidi Torres MD [address] [place] [address], [address] [place] [address] Insurance Assigned Provider 08/25/21 08/23/23 Stefanie Dow MD [address] [place] [address], [address] [place] [address] Insurance Assigned Provider 08/23/23 08/22/24 Zora Gallagher CNP [address] [place] [address], [address] [place] [address] [email or web address] Insurance Assigned Provider 08/22/24 documented as of this encounter Additional Source Comments The information contained in this document represents components of the legal health record. It is not the complete legal health record.[facility]
--- OUTSIDE RECORDS SUMMARY | 2025-01-25 11:42 | XMS_ITS | Encounter Summary ---
Author Organization [facility] Address [address] [place] [address] [place] [address] Phone Care Team Providers Care Ground Host/Hostess Name Role Phone Chidi Torres MD Primary Care Provider [phone] Chidi Torres MD Unavailable Billy Roman MD Unavailable [phone] Zora Gallagher CNP Primary Care Provider Chidi Torres MD Unavailable [phone] Stefanie Dow MD Unavailable [phone] Zora Gallagher CNP Unavailable Encounter Details Date Type Department Care Team (Late st Contact Info) Description 08/10/2021 Transcribe [facility] 22 [facility] 3rd Floor, [address] [place] [address] Lucinda Rodríguez, LUNCHROOM MONITOR 75 [facility] [address] [place] [address] [email or web address] Social History Tobacco Use Types Packs/Day Years [...] st Contact Info) Description 02/26/2024 Procedure Pass [address] [place] [address] [address] 02/25/2025 10:30 AM EDT Appointment [address] [address] Aileen Zora, FIRE LIEUTENANT MARINE [address] [address] 03/11/2025 9:15 AM EDT Office Visit [facility] Orth[facility]ics & Sports Medicine [address] [place] [address] Alyssa Helms MD [address] [place] [address] Orthopedics & Sports Medicine, [facility] [place] [address] [email or web address] 04/27/2025 9:00 AM EST Office Visit [address] [address] Shmuel Gallagheran, FIRE LIEUTENANT MARINE [address] [address] 05/24/2025 10:00 AM EST Office Visit [facility] 22 [facility] 3rd Floor, [address] [place] [address] John Bean MD [address] [place] [address] documented as of this encounter Visit Diagnoses Not on filedocumented in this encounter Additional Health Concerns Infection Onset Date Last Indicated Resolved Time CoV-Risk 10/03/2021 10/03/2021 10/14/2021 1:22 AM EDT CoV-Presumed 01/05/2022 01/05/2022 01/26/2022 1:21 AM EDT Assessment Noted Time PHQ-2 Depression Total Score: 0 11/24/19 9:14 AM EDT documented as of this encounter Care Teams Ground Host/Hostess Relationship Specialty Start Date End Date Chidi Torres MD [address] [place] [address] 7 [place] [address] [email or web address] PCP - General 03/06/17 08/13/23 Zora Gallagher CNP [address] [place] [address] [place] [address] PCP - General Nurse Practitioner 08/14/23 Chidi Torres MD [address] [place] [address] 7 [place] [address] [email or web address] Insurance Assigned Provider 08/25/21 11/11/21 Billy Roman MD [address] [place] [address] [email or web address] Cardiology 11/12/21 Chidi Torres MD [address] [place] [address] 7 [place] [address] Insurance Assigned Provider 08/25/21 08/23/23 Stefanie Dow MD [address] [place] [address] 7 [place] [address] Insurance Assigned Provider 08/23/23 08/22/24 Zora Gallagher CNP [address] [place] [address], [address] [place] [address] [email or web address] Insurance Assigned Provider 08/22/24 documented as of this encounter Additional Source Comments The information contained in this document represents components of the legal health record. It is not the complete legal health record.[facility]
--- OUTSIDE RECORDS SUMMARY | 2025-01-25 11:42 | XMS_ITS | Encounter Summary ---
Author Organization [facility] Address [address] [place] [address] Phone Care Team Providers Care Backing In Machine Tender Name Role Phone Chidi Torres MD Primary Care Provider Chidi Torres MD Unavailable Chidi Torres MD Unavailable Billy Roman MD Unavailable Zora Gallagher OUTSIDE SALES ASSOCIATE Primary Care Provider Chidi Torres MD Unavailable [phone] Stefanie Dow MD Unavailable Zora Gallagher OUTSIDE SALES ASSOCIATE Unavailable Encounter Details Date Type Department Care Team (Late st Contact Info) Description 06/29/2020 Procedure Pass [facility], [facility] 30 [place] [address] Social History Tobacco Use Types Packs/Day Years [...] Contact Info) Description 02/26/2024 Procedure Pass [address] [address] 02/25/2025 10:30 AM EDT Appointment [address] [address] Zora Gallagher, MU [address] [address] 03/11/2025 9:15 AM EDT Office Visit [facility] Orthopedics & Sports Medicine [address] [place] [address] Alyssa Helms MD [address] [place] [address] Orthopedics & Sports Medicine, [place] [address] [email or web address] 04/27/2025 9:00 AM EST Office Visit [address] [address] Zora Gallagher, OUTSIDE SALES ASSOCIATE [address] [address] 05/24/2025 10:00 AM EST Office Visit [facility] [address] [place] [address] 3rd Floor, [address] [place] [address] John Bean MD [address] [place] [address] documented as of this encounter Visit Diagnoses [...] documented as of this encounter Care Teams Backing In Machine Tender Relationship Specialty Start Date End Date Chidi Torres MD [address] [place] [address] 7 [place] [address] [email or web address] PCP - General 03/06/17 08/13/23 Zora Gallagher CNP [address] [place] [address] 7 [place] [address] PCP - General Nurse Practitioner 08/14/23 Chidi Torres MD [address] [place] [address] 7 [place] [address] [email or web address] Insurance Assigned Provider 03/25/20 07/22/20 Chidi Torres MD [address] [place] [address] 7 [place] [address] [email or web address] Insurance Assigned Provider 08/25/21 11/11/21 Billy Roman MD [address] [place] [address] [email or web address] Cardiology 11/12/21 Chidi Torres MD [address] [place] [address], [address] [place] [address] Insurance Assigned Provider 08/25/21 08/23/23 Stefanie Dow MD [address] [place] [address], [facility] 7 [place] [address] Insurance Assigned Provider 08/23/23 08/22/24 Zora Gallagher CNP [address] [place] [address], [address] [place] [address] Insurance Assigned Provider 08/22/24 documented as of this encounter Additional Source Comments The information contained in this document represents components of the legal health record. It is not the complete legal health record.[facility]
--- OUTSIDE RECORDS SUMMARY | 2025-01-25 11:42 | XMS_ITS | Encounter Summary ---
Author Organization [facility] Address [address] [place] [address] Phone Care Team Providers Care Front Office Medical Assistant Name Role Phone Chidi Torres MD Primary Care Provider [phone] Chidi Torres MD Unavailable Billy Rmoan MD Unavailable [phone] Zora Gallagher CNP Primary Care Provider Chidi Torres MD Unavailable Stefanie Dow MD Unavailable [phone] Zora Gallagher CNP Unavailable Encounter Details Date Type Department Care Team (Late st Contact Info) Description 04/16/2021 Procedure Pass [facility] Electrophysiology Lab [address] [place] [address] Social History Tobacco Use Types Packs/Day Years [...] st Contact Info) Description 02/26/2024 Procedure Pass [facility] 30 [place] [address] 02/25/2025 10:30 AM EDT Appointment [facility] 30 [place] [address] Zora Gallagher, AUTO PAINTER 234 [facility] 7 [place] [address] 03/11/2025 9:15 AM EDT Office Visit [facility] Orthopedics & Sports Medicine [address] [place] [address] Alyssa Helms MD [address] [place] [address] Orthopedics & Sports Medicine, [facility] [place] [address] [email or web address] 04/27/2025 9:00 AM EST Office Visit [address] [address] Zora Gallagher, AUTO PAINTER [address] [address] 05/24/2025 10:00 AM EST Office Visit [facility] 22 [facility] 3rd Floor, [address] [place] [address] John Bean MD [address] [place] [address] documented as of this encounter Visit Diagnoses [...] documented as of this encounter Care Teams Front Office Medical Assistant Relationship Specialty Start Date End Date Chidi Torres MD [address] [place] [address], [facility] 7 [place] [address] [email or web address] PCP - General 03/06/17 08/13/23 Zora Gallagher CNP [address] [place] [address] 7 [place] [address] PCP - General Nurse Practitioner 08/14/23 Chidi Torres MD [address] [place] [address] 7 [place] [phone] Insurance Assigned Provider 08/25/21 11/11/21 Billy Roman MD [address] [place] [address] [email or web address] Cardiology 11/12/21 Chidi Torres MD [address] [place] [address] 7 [place] [phone] Insurance Assigned Provider 08/25/21 08/23/23 Stefanie Dow MD [address] [place] [address], [facility] 7 [place], [place] [address] Insurance Assigned Provider 08/23/23 08/22/24 Zora Gallagher CNP [address] [place] [address] 7 [place] [address] [email or web address] Insurance Assigned Provider 08/22/24 documented as of this encounter Additional Source Comments The information contained in this document represents components of the legal health record. It is not the complete legal health record.[facility]
== END 2025-01-25 11:12 | disposition home or self-care (01) ==
LOC: HO.HSM 09:59
PROVIDERS: PCP Nurse Practitioner Family; Visit Provider Nurse Practitioner
DX: R26.9 Unspecified abnormalities of gait and mobility (principal); R51.9 Headache, unspecified; M25.512 Pain in left shoulder
CPT/HCPCS: 20553; 64405; 99204

== ENCOUNTER → 2025-03-04 09:48 | Outpatient (BNV) | payer MEDICARE, SELFPAY | PROVIDERS: PCP Nurse Practitioner Family; Visit Provider Radiology Diagnostic Radiology | DX: M99.61 Osseous and subluxation stenosis of intervertebral foramina of cervical region (principal); M47.812 Spondylosis without myelopathy or radiculopathy, cervical region; G31.89 Other specified degenerative diseases of nervous system | CPT/HCPCS: 70551; 72141 ==

== ENCOUNTER 2025-03-04 09:55 | Outpatient (REF) | payer MEDICARE, SELFPAY ==
--- NOTE | ~2025-03-04 | MR_ITS ---
EXAMINATION: MR BRAIN WITHOUT CONTRAST CLINICAL INFORMATION: Unspecified abnormalities of gait and mobility. R26.9. COMPARISON: None available. TECHNIQUE: MRI of the brain was obtained using routine sequences without contrast. FINDINGS: No restricted diffusion. No acute intracranial hemorrhage, mass effect, midline shift, hydrocephalus or herniation. Cordero-white matter differentiation is normal. Nonspecific hyperintense T2 FLAIR signal foci in the subcortical white matter of the centrum semiovale. Flow-void signal within the main cerebral vessels is normal. Posterior cranial fossa contents demonstrated no mass effect or acute hemorrhage. Normal position of the cerebellar tonsils. Sellar/suprasellar region is normal. Prominence of the extra-axial CSF spaces and cerebral sulci in the bifrontal lobes. MR/MR cervical spine wo con IMPRESSION: No acute brain abnormality. Bifrontal lobe atrophy, mild. EXAMINATION: MR CERVICAL SPINE WITHOUT CONTRAST CLINICAL INFORMATION: M 54.2. Cervicalgia COMPARISON: None available. TECHNIQUE: MRI of the cervical spine was obtained using routine sequences without contrast. FINDINGS: Paramagnetic field distortion secondary to metallic hardware C5-6. Craniocervical junction is intact with normal position of the cerebellar tonsils. No bone marrow STIR signal abnormality. There is a focal intrinsic hyperintense T1 signal at C7 likely intraosseous hemangioma. There is a 1 mm anterolisthesis T1-S2. C2-3: No disc herniation. No neuroforamina stenosis. C3-4: Right-sided disc osteophyte compresses formation resulting in ventral indentation to the thecal sac. No cord compression. No cord signal abnormality. Right neuroforamina stenosis. C4-5: Broad-based disc osteophyte complex formation resulting in ventral indentation to the thecal sac. No cord compression. Bilateral neuroforamina narrowing. C5-6: Postsurgical changes with a broad-based disc osteophyte complex formation resulting in ventral indentation to the spinal cord. No cord signal abnormality. Bilateral neuroforamina narrowing, right greater than the left on a degenerative basis. C6-7: Bilateral perineural cysts. There is a central subarticular disc osteophyte compresses formation resulting in ventral indentation to the spinal cord. There is CSF effacement in the ventral and dorsal aspect of the thecal sac. No cord signal abnormality. Bilateral neuroforamina narrowing. C3 7-T1: Broad-based disc osteophyte compresses formation producing the AP diameter of the thecal sac. No cord compression. No cord signal abnormality. No neuroforamina stenosis. No prevertebral compartment hematoma, mass or fluid collection. Flow-void signal within the main vessels is normal. Left vertebral artery is dominant. IMPRESSION: Postsurgical changes/anterior cervical arthrodesis C5-6 with central spinal canal stenosis without cord compression, cord edema and or myelopathy. Cervical spondylosis C3-4 resulting in right neuroforamina stenosis and C6-7 resulting in central spinal canal and bilateral neuroforamina stenosis without cord edema and or myelopathy. Electronically signed by: Shiv Mena MD 03/04/2025 11:20 AM EDT
--- OUTSIDE RECORDS SUMMARY | 2025-03-04 11:33 | XMS_ITS | Encounter Summary ---
Author Organization [facility] Address [address] [place] [address] [address] [place] [address] Phone Care Team Providers Care Transmitter Chief Name Role Phone Chidi Torres MD Primary Care Provider Chidi Torres MD Unavailable Chidi Torres MD Unavailable Chidi Torres MD Unavailable [phone] Billy Roman MD Unavailable Zora Gallagher CNP Primary Care Provider Chidi Torres MD Unavailable Stefanie Dow MD Unavailable Zora Gallagher CNP Unavailable [phone] Encounter Details Date Type Department Care Team (Late st Contact Info) Description 01/15/2019 Ancillary Orders [facility] Medical [facility] Medicine 234 [place], [place] [id number] Chidi Torres MD 234 [facility], [address] [place], [place] [id number] [email or web address] Social History Tobacco Use Types Packs/Day Years [...] st Contact Info) Description 02/26/2024 Procedure Pass [address] [address] 03/09/2025 10:45 AM EDT Appointment [address] [address] AileenZora, YARD SUPERVISOR 234 [facility] 7 [place] [address] 03/11/2025 9:15 AM EDT Office Visit [facility] Orthopedics & Sports Medicine [address] [place] [address] Alyssa Helms MD [address] [place] [address] Orthopedics & Sports Medicine, [facility] [place] [address] [email or web address] 04/27/2025 9:00 AM EST Office Visit [facility] Medicine [address] [place] [address] Aileen Zora, YARD SUPERVISOR 234 [facility] 7 [place] [address] 05/24/2025 10:00 AM EST Office Visit [facility] 22 [facility] 3rd Floor, [address] [place] [address] John Bean MD [address] [place] [address] documented as of this encounter Visit Diagnoses [...] documented as of this encounter Care Teams Transmitter Chief Relationship Specialty Start Date End Date Chidi Torres MD [address] [place] [address] 7 [place] [address] [email or web address] PCP - General 03/06/17 08/13/23 Zora Gallagher CNP [address] [place] [address] 7 [place] [address] PCP - General Nurse Practitioner 08/14/23 Chidi Torres MD [address] [place] [address] 7 [place] [address] [email or web address] Insurance Assigned Provider 09/19/18 02/27/19 Chidi Torres MD [address] [place] [address] 7 [place] [address] Insurance Assigned Provider 03/25/20 07/22/20 Chidi Torres MD [address] [place] [address], [address] [place] [address] [email or web address] Insurance Assigned Provider 08/25/21 11/11/21 Billy Roman MD [address] [place] [email or web address] Cardiology 11/12/21 Chidi Torres MD [address] [place] [address], [address] [place] [address] [email or web address] Insurance Assigned Provider 08/25/21 08/23/23 Stefanie Dow MD [address] [place] [address], [facility] 7 [place] [address] [email or web address] Insurance Assigned Provider 08/23/23 08/22/24 Zora Gallagher CNP [address] [place] [address], [address] [place] [phone] Insurance Assigned Provider 08/22/24 documented as of this encounter Additional Source Comments The information contained in this document represents components of the legal health record. It is not the complete legal health record.[facility]
--- OUTSIDE RECORDS SUMMARY | 2025-03-04 11:33 | XMS_ITS | Encounter Summary ---
Author Organization [facility] Address [address] [place] [address] Phone Care Team Providers Care Process Worker Name Role Phone Chidi Torres MD Primary Care Provider Chidi Torres MD Unavailable [phone] Chidi Torres MD Unavailable [phone] Chidi Torres MD Unavailable [phone] Billy Roman MD Unavailable [phone] Zora Gallagher CNP Primary Care Provider Chidi Torres MD Unavailable Stefanie Dow MD Unavailable Zora Gallagher CNP Unavailable Reason for Referral * MRI/CAT Scan - Closed Specialty Diagnoses / Procedures Referred By Monica scott Referred To Contact Radiology Diagnoses Ataxia Numbness Neck pain Procedures MRI Cervical Spine Des Boyce MD Phone: tel: fax: [email or web address] Referral ID Status Reason Start Date Expiration Date Visits Re quested Visits Authorized [id number] Closed 04/30/2018 05/31/2018 1 1 Encounter Details Date Type Department Care Team (Late st Contact Info) Description 05/08/2018 Ancillary Orders Virtual Department 30 [place] [address] Des Boyce MD [address] [place] [address], [address] [place] [address] Ataxia; Numbness; Neck pain Social History Tobacco [...] st Contact Info) Description 02/26/2024 Procedure Pass [address] [address] 03/09/2025 10:45 AM EDT Appointment [address] [address] Zora Gallagher, MU [address] [address] 03/11/2025 9:15 AM EDT Office Visit [facility] Sports Medicine [address] [place] [address] Alyssa Helms MD [address] [place] [address] Orthopedics & Sports [place] [address] [email or web address] 04/27/2025 9:00 AM EST Office Visit [facility] Medicine [address] [place] [address] Zora Gallagher, HEALTH SYSTEMS ANALYST 234 [facility], [facility] 7 [place] [address] [email or web address] 05/24/2025 10:00 AM EST Office Visit [facility] [address] 3rd Floor, [address] [place], [place] [address] John Bean MD [address] [place] [address] documented as of this encounter Results * [...] and mild left neural foraminal stenosis. POS [id number] Edited by: Terra Carter on 05/13/2018 3:09 [...] T1 and T2/STIR hyperintensity in the superior E8odfdkfewi body to the left of midline, was [...] right andmild left neural foraminal stenosis. POS [id number] Edited by: Terra Carter on 05/13/2018 3:09 PM Des Boyce MD IMG MR XSPECIALTY Final Resu lt documented in this encounter Visit Diagnoses Diagnosis Ataxia Lack of coordination Numbness Disturbance of skin sensation Neck pain Cervicalgia Ataxia Lack of coordination Numbness Disturbance of skin sensation Neck pain Cervicalgia Rotator cuff arthropathy of left shoulder- Primary documented in this encounter Additional Health [...] documented as of this encounter Care Teams Process Worker Relationship Specialty Start Date End Date Chidi Torres MD [address] [place] [address] 7 [place] [address] [email or web address] PCP - General 03/06/17 08/13/23 Zora Gallagher CNP [address] [place] [address] 7 [place] [address] [email or web address] PCP - General Nurse Practitioner 08/14/23 Chidi Torres MD [address] [place] [address] 7 [place] [address] [email or web address] Insurance Assigned Provider 09/19/18 02/27/19 Chidi Torres MD [address] [place] [address] 7 [place] [phone] Insurance Assigned Provider 03/25/20 07/22/20 Chidi Torres MD [address] [place] [address] 7 [place] [address] [email or web address] Insurance Assigned Provider 08/25/21 11/11/21 Billy Roman MD [address] [address] [email or web address] Cardiology 11/12/21 Chidi Torres MD [address] [place] [address] 7 [place] [address] [email or web address] Insurance Assigned Provider 08/25/21 08/23/23 Stefanie Dow MD 234 [facility], [address] [place] [address] [email or web address] Insurance Assigned Provider 08/23/23 08/22/24 Zora Gallagher CNP 234 [facility], [address] [place] [address] [email or web address] Insurance Assigned Provider 08/22/24 documented as of this encounter Additional Source Comments The information contained in this document represents components of the legal health record. It is not the complete legal health record.[facility]
--- OUTSIDE RECORDS SUMMARY | 2025-03-04 11:33 | XMS_ITS | Encounter Summary ---
Author Organization [facility] Address [address] [place] [address] Phone Care Team Providers Care Malt Liquors Sales Supervisor Name Role Phone Chidi Torres MD Primary Care Provider [phone] Billy Roman MD Unavailable [phone] Zora Gallagher CNP Primary Care Provider [phone] Chidi Torres MD Unavailable Stefanie Dow MD Unavailable Zora Gallagher CNP Unavailable Encounter Details Date Type Department Care Team (Late st Contact Info) Description 08/16/[address] [address] Social History Tobacco Use Types Packs/Day Years [...] st Contact Info) Description 02/26/2024 Procedure Pass [facility] 30 [place] [address] 03/09/2025 10:45 AM EDT Appointment [facility] 30 [place] [address] Zora Gallagher, MARKETING DIRECTOR ASSISTED LIVING 234 [facility] 7 [place] [address] 03/11/2025 9:15 AM EDT Office Visit [facility] Orthopedics & Sports Medicine [address] [place] [address] Alyssa Helms MD [address] [place] [address] Orthopedics & Sports Medicine, [facility] [place] [address] [email or web address] 04/27/2025 9:00 AM EST Office Visit [facility] Medicine [address] [place] [address] Zora Gallagher, MARKETING DIRECTOR ASSISTED LIVING [address] [address] 05/24/2025 10:00 AM EST Office Visit [facility] [address] [place] [address] 3rd Floor, [address] [place] [address] John Bean MD [address] [place] [address] documented as of this encounter Visit Diagnoses Not on filedocumented in this encounter Additional Health Concerns Assessment Noted Time PHQ-2 Depression Total Score: 0 02/29/20 9:50 AM EDT documented as of this encounter Care Teams Malt Liquors Sales Supervisor Relationship Specialty Start Date End Date Chidi Torres MD [address] [place] [address] PCP - General 03/06/17 08/13/23 Zora Gallagher CNP [address] [place] [address], [facility] 7 [place] [address] PCP - General Nurse Practitioner 08/14/23 Billy Roman MD [address] [place] [address] [email or web address] Cardiology 11/12/21 Chidi Torres MD [address] [place] [address], [address] [place] [phone] Insurance Assigned Provider 08/25/21 08/23/23 Stefanie Dow MD [address] [place] [address], [address] [place] [phone] Insurance Assigned Provider 08/23/23 08/22/24 Zora Gallagher CNP [address] [place] [address], [facility] 7 [place] [phone] Insurance Assigned Provider 08/22/24 documented as of this encounter Additional Source Comments The information contained in this document represents components of the legal health record. It is not the complete legal health record.[facility]
--- OUTSIDE RECORDS SUMMARY | 2025-03-04 11:33 | XMS_ITS | Encounter Summary ---
Author Organization [facility] Address [address] [place] [address] Phone Care Team Providers Care Design Intern Name Role Phone Billy Roamn MD Unavailable [phone] Zora Gallagher CNP Primary Care Provider Zora Gallagher CNP Unavailable Encounter Details Date Type Department Care Team (Latest Contact Info) Description 11/03/2024 Ancillary Orders [address] [address] Alyssa Helms MD [address] [place] [address] Orthopedics & Sports Medicine, [facility] [place], [place] [phone] [email or web address] Localized osteoarthritis of shoulder regions, bilateral [...] Contact Info) Description 02/26/2024 Procedure Pass [address] [address] 03/09/2025 10:45 AM EDT Appointment [address] [address] Zora Gallagher, CHIEF DESIGN DRAFTER [address] [address] 03/11/2025 9:15 AM EDT Office Visit [facility] Orthopedics & Sports Medicine [address] [place] [address] Alyssa Helms MD [address] [place] [address] Orthopedics & Sports Medicine, [place] [address] [email or web address] 04/27/2025 9:00 AM EST Office Visit [facility] [address] [place] [address] Zora Gallagher, CHIEF DESIGN DRAFTER [address] [address] 05/24/2025 10:00 AM EST Office Visit [facility] [address] [place] [address] 3rd Floor, [address] [place] [address] John Bean MD [address] [place] [address] Pending Results Name Type Priority Associated Diagnoses [...] Localized osteoarthritis of shoulder regions, bilateral- Primary Rotator cuff arthropathy of left shoulder- Primary documented in this encounter Additional Health Concerns Assessment Noted Time PHQ-2 Depression Total Score: 0 08/27/19 24 11:28 AM EDT documented as of this encounter Care Teams Design Intern Relationship Specialty Start Date End Date Zora Gallagher CNP [address] [place] [address], [facility] 7 [place] [address] [email or web address] PCP - General Nurse Practitioner 08/14/23 Billy Roman MD [address] [place] [address] [email or web address] Cardiology 11/12/21 Zora Gallagher CNP [address] [place] [address], [facility] 7 [place] [address] [email or web address] Insurance Assigned Provider 08/22/24 documented as of this encounter Additional Source Comments The information contained in this document represents components of the legal health record. It is not the complete legal health record.[facility]
--- OUTSIDE RECORDS SUMMARY | 2025-03-04 11:33 | XMS_ITS | Encounter Summary ---
Author Organization [facility] Address [address] [place] [address] Phone Care Team Providers Care Timber Killer Name Role Phone Chidi Torres MD Primary Care Provider Chidi Torres MD Unavailable [phone] Chidi Torres MD Unavailable Chidi Torres MD Unavailable Billy Roman MD Unavailable Zora Gallagher CNP Primary Care Provider [phone] Chidi Torres MD Unavailable [phone] Stefanie Dow MD Unavailable Zora Gallagher CNP Unavailable [phone] Encounter Details Date Type Department Care Team (Late st Contact Info) Description 05/08/2018 Procedure Pass [facility], [facility] - [address] [place] [address] Social History Tobacco Use Types Packs/Day Years [...] st Contact Info) Description 02/26/2024 Procedure Pass [address] [address] 03/09/2025 10:45 AM EDT Appointment [address] [address] Zora Gallagher, HADOOP DEVELOPER 234 [facility] 7 [place] [address] 03/11/2025 9:15 AM EDT Office Visit [facility] Orthopedics & Sports Medicine [address] [place] [address] Alyssa Helms MD [address] [place] [address] Orthopedics & Sports Medicine, [facility] [place] [address] [email or web address] 04/27/2025 9:00 AM EST Office Visit [facility] Medicine [address] [place] [address] Zora Gallagher, HADOOP DEVELOPER 234 [facility] 7 [place] [address] 05/24/2025 10:00 AM EST Office Visit [facility] [address] [place] [address] 3rd Floor, [address] [place] [address] John Bean MD [address] [place] [address] [email or web address] documented as of this encounter Visit Diagnoses [...] documented as of this encounter Care Teams Timber Killer Relationship Specialty Start Date End Date Chidi Torres MD [address] [place] [address] [email or web address] PCP - General 03/06/17 08/13/23 Zora Gallagher CNP [address] [place] [address] [email or web address] PCP - General Nurse Practitioner 08/14/23 Chidi Torres MD [address] [place] [address] [email or web address] Insurance Assigned Provider 09/19/18 02/27/19 Chidi Torres MD [address] [place] [address] [place] [phone] Insurance Assigned Provider 03/25/20 07/22/20 Chidi Torres MD [address] [place] [address], [facility] 7 [place] [phone] Insurance Assigned Provider 08/25/21 11/11/21 Billy Roman MD 3 [place] [address] [email or web address] Cardiology 11/12/21 Chidi Torres MD [address] [place] [address] 7 [place] [address] [email or web address] Insurance Assigned Provider 08/25/21 08/23/23 Stefanie Dow MD [address] [place] [address] 7 [place] [phone] Insurance Assigned Provider 08/23/23 08/22/24 Zora Gallagher CNP [address] [place] [address] 7 [place] [phone] Insurance Assigned Provider 08/22/24 documented as of this encounter Additional Source Comments The information contained in this document represents components of the legal health record. It is not the complete legal health record.[facility]
--- OUTSIDE RECORDS SUMMARY | 2025-03-04 11:33 | XMS_ITS | Encounter Summary ---
Author Organization [facility] Address [address] [place] [address] Phone Care Team Providers Care Md Urologist Name Role Phone Chidi Torres MD Primary Care Provider [phone] Chidi Torres MD Unavailable [phone] Chidi Torres MD Unavailable Chidi Torres MD Unavailable Billy Roman MD Unavailable [phone] Zora Gallagher CNP Primary Care Provider Chidi Torres MD Unavailable [phone] Stefanie Dow MD Unavailable [phone] Zora Gallagher CNP Unavailable Encounter Details Date Type Department Care Team (Latest Contact Info) Description 09/22/2018 Transcribe Orders [facility] Laboratory [address] [place] [address] Des Boyce MD 69 [facility], [address] [place], [place] [id number] [email or web address] Other headache syndrome (Primary Dx) Social [...] st Contact Info) Description 02/26/2024 Procedure Pass [address] [address] 03/09/2025 10:45 AM EDT Appointment [address] [address] Zora Gallagher, VOLUNTEER MANAGER [address] [facility] 7 [place] [address] 03/11/2025 9:15 AM EDT Office Visit [facility] Medicine [address] [place] [address] Alyssa Helms MD [address] [place] [address] Orthopedics & Sports Medicine, [facility] [place] [address] [email or web address] 04/27/2025 9:00 AM EST Office Visit [facility] [address] [place] [address] Zora Gallagher, VOLUNTEER MANAGER [address] [facility] 7 [place] [address] 05/24/2025 10:00 AM EST Office Visit [facility], [address] [place] [address] John Bean MD [address] [place] [address] documented as of this encounter Results * CBC (09/22/2018 3:39 PM EDT) WBC 8.28 3.40 - 11.20 K/uL [facility] RBC 4.44 3.80 - 4.80 M/uL [facility] HGB 13.1 12.0 - 15.0 g/dL [facility] HCT 39.8 36.0 - 46.0 % [facility] PLT 298 130 - 400 K/uL [facility] MCV 89.6 79.0 - 98.0 fL [facility] MCH 29.5 27.0 - 34.8 pg [facility] MCHC 32.9 31.5 - 36.0 g/dL [facility] RDW 12.4 10.8 - 14.6 % [facility] MPV 9.9 9.4 - 12.4 fl [facility] NRBC 0.00 0.00 /100 WBCs [facility] ABSOLUTE NRBC 0.00 0.00 K/uL [facility] Blood 09/22/2018 3:39 PM EDT 09/22/2018 3:41 PM EDT us Des Boyce MD LAB BLOOD ORDERABLES Final R esult Performing Organization Address City/State/[facility] Co de Phone Number [facility] [address] [place] [address] * LFTs (hepatic panel) (09/22/2018 3:39 PM EDT) ALKALINE PHOSPHATASE 55 39 - 117 U/L [facility] TOTAL BILIRUBIN 0.2 0.0 - 1.2 mg/dL [facility] DIRECT BILIRUBIN <0.2 0 - 0.3 mg/dL [facility] Bilirubin (Indirect) NOT CALCULATED 0 - 1.5 mg/dL [facility] AST 14 0 - 37 U/L [facility] ALT 14 0 - 40 U/L [facility] TOTAL PROTEIN 6.5 6.5 - 8.0 g/dL [facility] ALBUMIN 4.2 3.9 - 4.8 g/dL [facility] GLOBULIN 2.3 1 - 4.8 g/dL [facility] A/G Ratio 1.83 1.00 - 4.80 RATIO [facility] Blood 09/22/2018 3:39 PM EDT 09/22/2018 3:41 PM EDT us Des Boyce MD LAB BLOOD ORDERABLES Final R esult [facility] [address] [place] [address] documented in this encounter Visit Diagnoses Diagnosis Other headache syndrome- Primary Rotator cuff arthropathy of left shoulder- [...] documented as of this encounter Care Teams Md Urologist Relationship Specialty Start Date End Date Chidi Torres MD [address] [place] [address], [facility] 7 [place] [address] [email or web address] PCP - General 03/06/17 08/13/23 Zora Gallagher CNP [address] [place] [address], [address] [place] [address] PCP - General Nurse Practitioner 08/14/23 Chidi Torres MD [address] [place] [address], [facility] [address] [place] [address] [email or web address] Insurance Assigned Provider 09/19/18 02/27/19 Chidi Torres MD [address] [place] [address], [facility] [address] [place] [address] [email or web address] Insurance Assigned Provider 03/25/20 07/22/20 Chidi Torres MD [address] [place] [address], [facility] [address] [place] [address] [email or web address] Insurance Assigned Provider 08/25/21 11/11/21 Billy Roman MD [address] [place] [email or web address] Cardiology 11/12/21 Chidi Torres MD [address] [place] [address] [address] [place] [address] [email or web address] Insurance Assigned Provider 08/25/21 08/23/23 Stefanie Dow MD [address] [place] [address], [address] [place] [address] [email or web address] Insurance Assigned Provider 08/23/23 08/22/24 Zora Gallagher CNP [address] [place] [address], [address] [place] [address] [email or web address] Insurance Assigned Provider 08/22/24 documented as of this encounter Additional Source Comments The information contained in this document represents components of the legal health record. It is not the complete legal health record.[facility]
--- OUTSIDE RECORDS SUMMARY | 2025-03-04 11:33 | XMS_ITS | Encounter Summary ---
Author Organization [facility] Address [address] [place] [address] Phone Care Team Providers Care Addictions Therapist Name Role Phone Chidi Torres MD Primary Care Provider [phone] Chidi Torres MD Unavailable Chidi Torres MD Unavailable Chidi Torres MD Unavailable Billy Roman MD Unavailable Zora Gallagher CNP Primary Care Provider Chidi Torres MD Unavailable Stefanie Dow MD Unavailable Zora Gallagher CNP Unavailable [phone] Encounter Details Date Type Department Care Team (Latest Contact Info) Description 11/03/2018 Transcribe Orders [facility] Laboratory [address] [place] [address] Des Boyce MD 69 [facility], [address] [place], [place] [phone] [email or web address] Dry mouth (Primary Dx) Social History [...] st Contact Info) Description 02/26/2024 Procedure Pass [address] [address] 03/09/2025 10:45 AM EDT Appointment [address] [address] Zora Gallagher, [employer] [address] [facility] 7 [place] [address] 03/11/2025 9:15 AM EDT Office Visit [facility] Orthopedics & Sports Medicine [address] [place] [address] Alyssa Helms MD [address] [place] [address] Orthopedics & Sports Medicine, [facility] [place] [address] [email or web address] 04/27/2025 9:00 AM EST Office Visit [facility] [address] [place] [address] Zora Gallagher, [employer]OMOTER [address] [facility] 7 [place] [address] 05/24/2025 10:00 AM EST Office Visit [facility] [address], [address] [place] [address] John Bean MD 50 [place] [address] documented as of this encounter Results * SS-A/SS-B antibodies (11/03/2018 2:13 PM EDT) SS-A/RO IGG <0.2 <1.0 (Negative) U [facility] SS-B/LA IGG <0.2 <1.0 (Negative) U [facility] Blood 11/03/2018 2:13 PM EDT 11/03/2018 2:14 PM EDT us Des Boyce MD LAB BLOOD ORDERABLES Final R esult [facility] MED/[facility] [address] [place] [phone] documented in this encounter Visit Diagnoses Diagnosis Dry mouth- Primary Disturbance of salivary secretion Rotator cuff arthropathy of left shoulder- Primary [...] documented as of this encounter Care Teams Addictions Therapist Relationship Specialty Start Date End Date Chiid Torres MD [address] [place] [address], [address] [place] [address] [email or web address] PCP - General 03/06/17 08/13/23 Zora Gallagher CNP [address] [place] [address], [address] [place] [address] PCP - General Nurse Practitioner 08/14/23 Chidi Torres MD [address] [place] [address], [facility] [address] [place] [address] [email or web address] Insurance Assigned Provider 09/19/18 02/27/19 Chidi Torres MD [address] [place] [address], [facility] 7 [place] [address] [email or web address] Insurance Assigned Provider 03/25/20 07/22/20 Chidi Torres MD [address] [place] [address], [facility] 7 [place] [address] [email or web address] Insurance Assigned Provider 08/25/21 11/11/21 Billy Roman MD [address] [place] [email or web address] Cardiology 11/12/21 Chidi Torres MD [address] [place] [address], [address] [place] [address] Insurance Assigned Provider 08/25/21 08/23/23 Stefanie Dow MD [address] [place] [address], [address] [place] [address] [email or web address] Insurance Assigned Provider 08/23/23 08/22/24 Zora Gallagher CNP [address] [place] [address], [address] [place] [address] [email or web address] Insurance Assigned Provider 08/22/24 documented as of this encounter Additional Source Comments The information contained in this document represents components of the legal health record. It is not the complete legal health record.[facility]
--- OUTSIDE RECORDS SUMMARY | 2025-03-04 11:33 | XMS_ITS | Clinical Summary ---
Author Organization [facility] Address [address] [place] [address] Phone Care Team Providers Care Cover Creaser Name Role Phone Billy Roman MD Unavailable [phone] Zora Gallagher CNP Primary Care Provider Zora Gallagher CNP Unavailable [phone] Allergies No known active allergies Medications riboflavin, [...] (two) times a day. 60 capsule 1 11/30/19 22 Active topiramate (TOPAMAX) 50 MG tablet Take 1 tablet by mouth 2 (two) times a day. 01/22/20 23 Active flecainide (TAMBOCOR) 50 MG tabletIndicatio ns:one and a half BID-150 mg total Take 1.5 tablets (75 mg total) by mouth 2 (two) times a day. 1.5 tab twice daily Indications: one and a half BID-150 mg total 270 tablet 4 03/23/20 24 Active dilTIAZem (CARDIZEM CD) 120 MG 24 hr capsuleIndicati ons:Atrial fibrillation Take 1 capsule (120 mg total) by mouth daily. 90 capsule 3 04/08/20 24 Active clonazePAM (KLONOPIN) 0.5 MG tabletIndicatio ns:Anxiety state TAKE ONE TABLET BY MOUTH EVERY DAY 90 tablet 02/10/20 25 Active triamcinolone acetonide 0.1 % creamIndication s:Intrinsic eczema Apply topically as needed (Intrinsic eczema [L20.84]). 30 g 1 02/16/20 25 Active cyclobenzaprine (FLEXERIL) 10 MG tablet TAKE ONE TABLET BY MOUTH EVERY DAY AT SUPPER 12/23/19 25 Active clotrimazole-be tamethasone (LOTRISONE) cream Apply topically 2 (two) times a day for 14 days. 30 g 02/23/20 25 025 Active triamcinolone acetonide 0.1 % creamIndication s:Intrinsic eczema APPLY TOPICALLY NEEDED 30 g 1 09/23/19 25 025 Discontinued(Re order) clonazePAM (KLONOPIN) 0.5 MG tabletIndicatio ns:Anxiety state TAKE ONE TABLET BY MOUTH EVERY DAY 90 tablet 11/12/19 25 025 Discontinued Active Problems Problem Noted Date Diagnosed Date [...] her SVT ablation that was done at [facility]. She was recommended for 6 weeks of anticoagulation with Xarelto and then to stop anticoagulation. She has had no recurrence of atrial fibrillation to date that we know if. Her [id number]-ZIQn score is 2. Will continue off anticoagulation as we have been doing. Assessment & Plan (12/04/2023 10:45 AM EDT): Very brief episode of atrial fibrillation immediately following her SVT ablation that was done at [facility]. She was recommended for 6 weeks of anticoagulation with Xarelto and then to stop anticoagulation. She has had no recurrence of atrial fibrillation to date that we know if. Her EBO0IH4-YLVl score is 2. Will continue off anticoagulation as we have been doing. Assessment & Plan (09/20/2021 9:15 AM EDT): Patient had a very brief episode of atrial fibrillation immediately after her SVT ablation that was done at [facility]. They had asked her to start Xarelto for 6 weeks and then stop. She has not had any further recurrences since. She has a GYX0YC8- VASc of 2 given age and gender. I noted that the current guidelines say that at this risk or, anticoagulation or no anticoagulation options. She notes that she is being started on a migraine medication where anticoagulation of any type or aspirin is contraindicated. Given she has not had any further recurrences and her ITO1LI4- VASc is borderline, we will hold on anticoagulation for now Assessment & Plan (05/03/2021 9:33 AM EST): She has had brief episodes of atrial fibrillation immediately after and during the procedure. She is on Xarelto currently. She has a EQU4KC5-ACNg of 2 given age and gender based on the most recent guidelines does not have to be on anticoagulation given the threshold is now [id number] of 3 for women. She is on Xarelto that was started by [facility] for 6 weeks and can [...] AM EDT): Her last EP study at [facility] described her arrhythmia is a [...] AM EDT): Her last EP study at [facility] described her arrhythmia is a [...] Dr. Dumont as well as one at [facility] with unfortunately still recurrences of SVT. She is back to taking diltiazem every day and is now currently taking flecainide 75 mg as needed. She was told at [facility] that it can take up [...] SVT ablation either done by myself or [facility] and I will leave it [...] & Plan (02/26/2024 9:49 AM EDT): Stable, continues to follow with Dr. Carrera. Managed on diltiazem 120mg and flecainide 50mg. Denies concerns. Will continue to monitor. Assessment & Plan (08/27/2023 12:03 PM EDT): Stable, continues to follow with Dr. Carrera. Managed [...] [address] Dumont and 2 at [facility]. I recommended she restart flecainide 75 mg twice daily as well as the diltiazem 120 mg XL once daily as this was helpful for her in the past and could be helpful in combination with the ablation is performed at [facility]. I urged her to reach out to [facility] given that she just had [...] was unsuccessful. She was seen by her substation wireman who recommended Tikosyn loading therefore she presented to [facility] on 03/29. Patient appears to be tolerating the medication without difficulty. She did convert to normal sinus rhythm. Currently her heart rates are in the 60s. However this morning she was noted to have an elongated ME interval at 0.36 therefore metoprolol was discontinued. [...] Encounters Date Type Department Care Team Description 03/03/[address] [facility] -PHSO TEAM [address] [place] [address] Zora Gallagher CNP Care Coordination ([facility]/) 02/22/2025 9:10 AM EDT Office Visit [facility] [address] [place] [address] Tess Sol, MINDI Tinea corporis (Primary Dx) 02/15/[address] [address] Erika Gaston [place] 02/09/[address] [address] Diamond Robbins CNP Medication Refill 02/04/2025 Orders Only [address] [address] Provider, MD Natasha from Last 3 Months Immunizations Immunization Administration Dates Next Due COVID-19 (Pre-03/10) Moderna Vaccine, mRNA, PF 08/10/2020,07/13/2020 INFLUENZA, SPLIT [...] uit: Not Asked; Counseling Given: Not Answered Comments:Soledadeny 1/4ppd Alcohol Use Standard Drinks/Week Comments Yes [...] Sign Reading Time Taken Comments Blood Pressure 99/62 02/22/2025 9:30 AM EDT Pulse 74 02/22/2025 9:30 AM EDT Temperature 36.7 C (98.1 F) 02/22/2025 9:30 AM EDT Respiratory Rate 18 02/22/2025 9:30 AM EDT Oxygen Saturation 99% 02/22/2025 9:30 AM EDT Inhaled Oxygen Concentration - - Weight 59 kg (130 lb) 02/22/2025 9:30 AM EDT Height 170.2 cm (5' 7 ) 02/22/2025 9:30 AM EDT Body Mass Index 20.36 02/22/2025 9:30 AM EDT Plan of Treatment Upcoming Encounters Date Type Department Care Team (Late st Contact Info) Description 02/26/2024 Procedure Pass [address] [address] 03/09/2025 10:45 AM EDT Appointment [address] [address] Zora Gallagher, MU [address] [address] 03/11/2025 9:15 AM EDT Office Visit [facility] Orthopedics & Sports Medicine [address] [place] [address] Alyssa Helms MD [address] [place] [address] Orthopedics & Sports Medicine, [facility] [place] [address] [email or web address] 04/27/2025 9:00 AM EST Office Visit [facility] [address] [place] [address] Zoar Gallagher CNP [address] [address] 05/24/2025 10:00 AM EST Office Visit [facility] [address] [place] [address] 3rd Floor, [address] [place] [address] John Bean MD [address] [place] [address] [email or web address] Due Date Last Done Comments COLOGUARD 1998 COLONOSCOPY 1998 COLORECTAL CANCER SCREENING 1998 FIT TEST 1998 FOBT 1998 SIGMOIDOSCOPY 1998 VIRTUAL COLONOSCOPY 1998 LUNG CANCER SCREENING (LDCT Only) 10/28/2003 MAMMOGRAM 02/13/2024 02/12/2023, 10/18, 07/20/2020, Additional history exists DEPRESSION SCREENING 08/26/2024 08/27/2023 INFLUENZA VACCINE (#1) 2024 , 02/28/2022, 02/28/2022, Additional history exists COVID-19 VACCINE ( season) 2025 05/28/2021, 08/10/2020, 07/13/2020 SMOKING Hx and SMOKELESS TOBACCO SCREENING 02/22/2026 02/22/2025 Adult Td,Tdap Booster 04/18/2027 04/18/2017, 006 LIPID PANEL 08/31/2028 09/01/2023, 06/19, 06/29/2020, Additional history exists RSV VACCINE (1 - 1-dose 75+ series) 2028 HEPATITIS C SCREENING Completed 06/29/2020, 021 PNEUMOCOCCAL VACCINES (50+ years) Completed 06/29/2020, 04/22/2019 OSTEOPOROSIS SCREENING INITIAL (ONE-TIME) Completed 07/20/2020 ZOSTER VACCINES Completed 01/11/2025, 12/17, 11/25/2013 HEPATITIS A VACCINES Aged Out No long [...] Procedure Name Priority Date/Time Associated Diagnosis Comments OUTSIDE LAB Routine 02/04/2025 9:32 AM EDT LIPID PANEL Routine 09/01/2023 10:38 AM EDT [...] Recently Relevant to Health Maintenance Results * Outside Lab (02/04/2025 9:32 AM EDT) Historical Provider LAB BLOOD ORDERABLES Glenna montes de oca Result * (ABNORMAL) Lipid panel (09/01/2023 10:38 AM EDT) HDL 77 mg/dL [facility] Comment: Interpretation <40 mg/dL: Low HDL cholesterol (major risk factor for CHD) Greater than or equal to 60 mg/dL: High HDL cholesterol ( negative risk factor for CHD) HDL - cholesterol is affected by a number of factors, e.g. smoking, excerise, hormones, sex and age. CHOLESTEROL 239 0 - 240 mg/dL [facility] TRIGLYCERIDES 83 30 - 160 mg/dL [facility] LDL 145(H) 50 - 129 mg/dL [facility] Comment: LDL levels in terms of risk for coronary heart disease: <100 mg/dL: Optimal 100-129 mg/dL: Near or above optimal 130-159 mg/dL: Borderline high 160-189 mg/dL: High >190 mg/dL: Very High CARDIAC RISK RATIO 3.1(L) 3.3 - 4.4 C [facility] Blood 09/01/2023 10:3 8 AM EDT 09/01/2023 10:41 AM EDT us Zora Gallagher TECHNICAL SUPERVISOR LAB BLOOD ORDERABLES Final R esult [address] [id number] * BI MAMMOGRAM SCREENING WITH TOMOSYNTHESIS WITH [...] bone mineral density was calculated at 0.706 gm/xy5jtii a T-score of -1.3. Total bone mineral [...] AM EST) HCV NON-REACTIV E NON-REACTI VE [facility] Blood 06/29/2020 10:0 1 AM EST 06/29/2020 10:03 AM EST us Chidi Torres MD LAB BLOOD ORDERABLES Final Re sult [facility] [address] [place] [address] from Last 3 Months or Most Recently Relevant to Health Maintenance Insurance [employer]EX SUPPLEMENT MEDICARE PART A & B [employer] MEDEX SUPPLEMENT MEDICARE PART A & B [employer] SUPPLEMENT MEDICARE PART A & B [employer] MEDEX SUPPLEMENT MEDICARE PART A & B [place] [employer] CR[employer] MEDEX SUPPLEMENT MEDICARE PART A & B [place] CROSS MEDEX SUPPLEMENT MEDICARE PART A & B [employer] MEDEX SUPPLEMENT MEDICARE PART A & B [employer] MED[employer] SUPPLEMENT MEDICARE PART A & B [place] [employer] CROSS MEDEX SUPPLEMENT MEDICARE PART A & B Advance Directives For more information, please contact: [phone] (9AM - 5PM Velma/[facility], Friday-Friday) Documents on File Type Date Recorded Patient Cooker Tender Expl anation Healthcare Proxy 04/01/2019 12:14 PM [...] Code Status Confirmed With: Patient Care Teams Cover Creaser Relationship Specialty Start Date End Date Zora Gallagher CNP [address] [facility] [address] [place] [address] [email or web address] PCP - General Nurse Practitioner 08/14/23 Billy Roman MD [address] [place] [address] [email or web address] Cardiology 11/12/21 Zora Gallagher CNP [address] [place] [address] [address] [place] [address] [email or web address] Insurance Assigned Provider 08/22/24 Additional Source Comments The information contained in this document represents components of the legal health record. It is not the complete legal health record.[facility]
--- OUTSIDE RECORDS SUMMARY | 2025-03-04 11:34 | XMS_ITS | Encounter Summary ---
Author Organization [facility] Address [address] [place] [address] Phone Care Team Providers Care Wardrobe Mistress Name Role Phone Chidi Torres MD Primary Care Provider Chidi Torres MD Unavailable Billy Roman MD Unavailable Zora Gallagher CNP Primary Care Provider Chidi Torres MD Unavailable Stefanie Dow MD Unavailable Zora Gallagher CNP Unavailable Encounter Details Date Type Department Care Team (Late st Contact Info) Description 11/01/2021 Procedure Pass [facility], [address] [address] Social History Tobacco Use Types Packs/Day Years [...] st Contact Info) Description 02/26/2024 Procedure Pass [facility] 30 [place] [address] 03/09/2025 10:45 AM EDT Appointment [facility] 30 [place] [address] Zora Gallagher, SUPERVISOR SANDBLASTER 234 [facility] 7 [place] [address] 03/11/2025 9:15 AM EDT Office Visit [facility] Orthopedics & Sports Medicine [address] [place] [address] Alyssa Helms MD [address] [place] [address] Orthopedics & Sports Medicine, [facility] [place] [address] [email or web address] 04/27/2025 9:00 AM EST Office Visit [address] [address] Zora Gallagher, SUPERVISOR SANDBLASTER [address] [address] 05/24/2025 10:00 AM EST Office Visit [facility] [address] [place] [address] 3rd Floor, [address] [place] [address] John Bean MD [address] [place] [address] documented as of this encounter Visit Diagnoses Not on filedocumented in this encounter Additional Health Concerns Infection Onset Date Last Indicated Resolved Time CoV-Presumed 01/05/2022 01/05/2022 01/26/2022 1:21 AM EDT Assessment Noted Time PHQ-2 Depression Total Score: 0 11/24/19 9:14 AM EDT documented as of this encounter Care Teams Wardrobe Mistress Relationship Specialty Start Date End Date Chidi Torres MD [address] [place] [address] 7 [place] [address] [email or web address] PCP - General 03/06/17 08/13/23 Zora Gallagher CNP [address] [place] [address] 7 [place] [address] PCP - General Nurse Practitioner 08/14/23 Chidi Torres MD [address] [place] [address] 7 [place] [address] [email or web address] Insurance Assigned Provider 08/25/21 11/11/21 Billy Roman MD [address] [place] [address] [email or web address] Cardiology 11/12/21 Chidi Torres MD [address] [place] [address] 7 [place] [address] [email or web address] Insurance Assigned Provider 08/25/21 08/23/23 Stefanie Dow MD [address] [place] [address] 7 [place] [id number] Insurance Assigned Provider 08/23/23 08/22/24 Zora Gallagher CNP [address] [place] [address] 7 [place] [address] [email or web address] Insurance Assigned Provider 08/22/24 documented as of this encounter Additional Source Comments The information contained in this document represents components of the legal health record. It is not the complete legal health record.[facility]
--- OUTSIDE RECORDS SUMMARY | 2025-03-04 11:34 | XMS_ITS | Encounter Summary ---
Author Organization [facility] Address [address] [place] [address] Phone Care Team Providers Care Communications Department Chair Name Role Phone Chidi Torres MD Primary Care Provider [phone] Chidi Torres MD Unavailable Billy Roman MD Unavailable Zora Gallagher CNP Primary Care Provider Chidi Torres MD Unavailable Stefanie Dow MD Unavailable [phone] Zora Gallagher CNP Unavailable [phone] Encounter Details Date Type Department Care Team (Late st Contact Info) Description 12/04/[address] [facility] Electrophysiology Lab [address] [place] [address] Social History Tobacco Use Types Packs/Day Years [...] st Contact Info) Description 02/26/2024 Procedure Pass [facility] 30 [place] [address] 03/09/2025 10:45 AM EDT Appointment [facility] 30 [place] [address] Zora Gallagher, SUPERVISOR HOSPITALITY HOUSE 234 [facility] 7 [place] [address] 03/11/2025 9:15 AM EDT Office Visit [facility] [address] [place] [address] Alyssa Helms MD [address] [place] [address] Orthopedics & Sports Medicine, [facility] [place] [address] [email or web address] 04/27/2025 9:00 AM EST Office Visit [address] [address] Zora Gallagher, SUPERVISOR HOSPITALITY HOUSE [address] [address] 05/24/2025 10:00 AM EST Office Visit [facility] [address] [place] [address] 3rd Floor, [address] [place] [address] John Bean MD [address] [place] [address] documented as of this encounter Visit Diagnoses [...] documented as of this encounter Care Teams Communications Department Chair Relationship Specialty Start Date End Date Chidi Torres MD [address] [place] [address] [email or web address] PCP - General 03/06/17 08/13/23 Zora Gallagher CNP [address] [place] [address] [email or web address] PCP - General Nurse Practitioner 08/14/23 Chidi Torres MD [address] [place] [address] [email or web address] Insurance Assigned Provider 08/25/21 11/11/21 Billy Roman MD [address] [place] [address] [email or web address] Cardiology 11/12/21 Chidi Torres MD [address] [place] [address] [email or web address] Insurance Assigned Provider 08/25/21 08/23/23 Stefanie Dow MD [address] [place] [address], [address] [place] [address] [email or web address] Insurance Assigned Provider 08/23/23 08/22/24 Zora Gallagher CNP [address] [place] [address], [address] [place] [address] [email or web address] Insurance Assigned Provider 08/22/24 documented as of this encounter Additional Source Comments The information contained in this document represents components of the legal health record. It is not the complete legal health record.[facility]
--- OUTSIDE RECORDS SUMMARY | 2025-03-04 11:34 | XMS_ITS | Encounter Summary ---
Author Organization [facility] Address [address] [place] [address] Phone Care Team Providers Care Shading Painter Name Role Phone Chidi Torres MD Primary Care Provider Chidi Torres MD Unavailable [phone] Chidi Torres MD Unavailable Billy Roman MD Unavailable [phone] Zora Gallagher PARTY CHIEF Primary Care Provider Chidi Torres MD Unavailable Stefanie Dow MD Unavailable Zora Gallagher PARTY CHIEF Unavailable Encounter Details Date Type Department Care Team (Late st Contact Info) Description 06/29/2020 Procedure Pass [facility], [facility] 30 [place] [address] Social History Tobacco Use Types Packs/Day Years [...] st Contact Info) Description 02/26/2024 Procedure Pass [address] [address] 03/09/2025 10:45 AM EDT Appointment [address] [address] Zora Gallagher, MU [address] [address] 03/11/2025 9:15 AM EDT Office Visit [facility] Orthopedics & Sports Medicine [address] [place] [address] Alyssa Helms MD [address] [place] [address] Orthopedics & Sports Medicine, [place] [address] [email or web address] 04/27/2025 9:00 AM EST Office Visit [address] [address] Zora Gallagher, PARTY CHIEF [address] [address] 05/24/2025 10:00 AM EST Office Visit [facility] [address] [place] [address] 3rd Floor, [address] [place] [address] John Bean MD [address] [place] [address] documented as of this encounter Visit Diagnoses [...] documented as of this encounter Care Teams Shading Painter Relationship Specialty Start Date End Date Chidi Torres MD [address] [place] [address] 7 [place] [address] [email or web address] PCP - General 03/06/17 08/13/23 Zora Gallagher CNP [address] [place] [address] 7 [place] [address] PCP - General Nurse Practitioner 08/14/23 Chidi Torres MD [address] [place] [address] 7 [place] [address] [email or web address] Insurance Assigned Provider 03/25/20 07/22/20 Chidi Torres MD [address] [place] [address] 7 [place] [address] [email or web address] Insurance Assigned Provider 08/25/21 11/11/21 Billy Roman MD [address] [place] [address] [email or web address] Cardiology 11/12/21 Chidi Torres MD [address] [place] [address], [address] [place] [address] Insurance Assigned Provider 08/25/21 08/23/23 Stefanie Dow MD [address] [place] [address], [facility] 7 [place] [address] Insurance Assigned Provider 08/23/23 08/22/24 Zora Gallagher CNP [address] [place] [address], [address] [place] [address] Insurance Assigned Provider 08/22/24 documented as of this encounter Additional Source Comments The information contained in this document represents components of the legal health record. It is not the complete legal health record.[facility]
--- OUTSIDE RECORDS SUMMARY | 2025-03-04 11:34 | XMS_ITS | Encounter Summary ---
Author Organization [facility] Address [address] [place] [address] Phone Care Team Providers Care Grants Assistant Name Role Phone Chidi Torres MD Primary Care Provider Chidi Torres MD Unavailable Billy Roman MD Unavailable [phone] Zora Gallagher CNP Primary Care Provider Chidi Torres MD Unavailable [phone] Stefanie Dow MD Unavailable Zora Gallagher CNP Unavailable Encounter Details Date Type Department Care Team (Late st Contact Info) Description 09/14/2021 Procedure Pass [facility], [address] [place] [address] Social History Tobacco Use Types Packs/Day Years [...] st Contact Info) Description 02/26/2024 Procedure Pass [facility] 30 [place] [address] 03/09/2025 10:45 AM EDT Appointment [facility] 30 [place] [address] Zora Gallagher, MANAGER BANKING 234 [facility] 7 [place] [address] 03/11/2025 9:15 AM EDT Office Visit [facility] Orthopedics & Sports Medicine [address] [place] [address] Alyssa Helms MD [address] [place] [address] Orthopedics & Sports Medicine, [facility] [place] [address] [email or web address] 04/27/2025 9:00 AM EST Office Visit [address] [address] Zora Gallagher, MANAGER BANKING [address] [address] 05/24/2025 10:00 AM EST Office Visit [facility] [address] [place] [address] 3rd Floor, [address] [place] [address] John Bean MD [address] [place] [address] documented as of this encounter Visit Diagnoses Not on filedocumented in this encounter Additional Health Concerns Infection Onset Date Last Indicated Resolved Time CoV-Risk 10/03/2021 10/03/2021 10/14/2021 1:22 AM EDT CoV-Presumed 01/05/2022 01/05/2022 01/26/2022 1:21 AM EDT Assessment Noted Time PHQ-2 Depression Total Score: 0 11/24/19 9:14 AM EDT documented as of this encounter Care Teams Grants Assistant Relationship Specialty Start Date End Date Chidi Torres MD [address] [place] [address], [facility] 7 [place] [address] [email or web address] PCP - General 03/06/17 08/13/23 Zora Gallagher CNP [address] [place] [address] 7 [place] [address] [email or web address] PCP - General Nurse Practitioner 08/14/23 Chidi Torres MD [address] [place] [address] 7 [place] [address] [email or web address] Insurance Assigned Provider 08/25/21 11/11/21 Billy Roman MD [address] [place] [address] [email or web address] Cardiology 11/12/21 Chidi Torres MD [address] [place] [address] 7 [place] [address] [email or web address] Insurance Assigned Provider 08/25/21 08/23/23 Stefanie Dow MD [address] [place] [address], [facility] 7 [place] [address] [email or web address] Insurance Assigned Provider 08/23/23 08/22/24 Zora Gallagher CNP [address] [place] [address], [facility] 7 [place] [address] [email or web address] Insurance Assigned Provider 08/22/24 documented as of this encounter Additional Source Comments The information contained in this document represents components of the legal health record. It is not the complete legal health record.[facility]
--- OUTSIDE RECORDS SUMMARY | 2025-03-04 11:34 | XMS_ITS | Encounter Summary ---
Author Organization [facility] Address [address] [place] [address] Phone Care Team Providers Care Pelt Inspector Name Role Phone Chidi Torres MD Primary Care Provider Chidi Torres MD Unavailable [phone] Billy Roman MD Unavailable [phone] Zora Gallagher CNP Primary Care Provider Chidi Torres MD Unavailable [phone] Stefanie Dow MD Unavailable Zora Gallagher CNP Unavailable [phone] Encounter Details Date Type Department Care Team (Late st Contact Info) Description 04/03/2021 Telephone [facility] Electrophysiology Lab 75 [place], [place] [address] Elina Templeton, RN [address] [place] [phone] [email or web address] Social History Tobacco Use Types Packs/Day Years [...] Contact Info) Description 02/26/2024 Procedure Pass [address] [address] 03/09/2025 10:45 AM EDT Appointment [address] [address] Zora Gallagher, REGIONAL SERVICE MANAGER [address] [address] 03/11/2025 9:15 AM EDT Office Visit [facility] Orthopedics & Sports Medicine [address] [place] [address] Alyssa Helms MD [address] [place] [address] Orthopedics & Sports Medicine, [place] [address] [email or web address] 04/27/2025 9:00 AM EST Office Visit [address] [address] Zora Gallagher, [address] [address] 05/24/2025 10:00 AM EST Office Visit [facility] [address] [place] [address] 3rd Floor, [address] [place] [address] John Bean MD [address] [place] [address] documented as of this encounter Results * COVID-19 PCR Order (04/13/2021 10:09 AM EST) COVID-19 Comment [id number] [facility] COVID Testing Status In-house testing being performed [facility] Other 04/13/2021 10:0 9 AM EST 04/13/2021 11:23 AM EST Ariana Kenney MD, MS BODY FLUIDS AND STOOLS MENA ALLAN Final Result [facility] 30 [place] [address] documented in this encounter Visit Diagnoses Diagnosis Encounter for preoperative screening laboratory testing for COVID-19 virus- Primary Rotator cuff arthropathy of left shoulder- [...] documented as of this encounter Care Teams Pelt Inspector Relationship Specialty Start Date End Date Chidi Torres MD [address] [place] [address] [email or web address] PCP - General 03/06/17 08/13/23 Zora Gallagher CNP [address] [place] [address] [email or web address] PCP - General Nurse Practitioner 08/14/23 Chidi Torres MD [address] [place] [address] [email or web address] Insurance Assigned Provider 08/25/21 11/11/21 Billy Roman MD [address] [address] [email or web address] Cardiology 11/12/21 Chidi Torres MD [address] [place] [address], [address] [place] [address] Insurance Assigned Provider 08/25/21 08/23/23 Stefanie Dow MD [address] [place] [address], [address] [place] [phone] Insurance Assigned Provider 08/23/23 08/22/24 Zora Gallagher CNP [address] [place] [address], [address] [place] [id number] Insurance Assigned Provider 08/22/24 documented as of this encounter Additional Source Comments The information contained in this document represents components of the legal health record. It is not the complete legal health record.[facility]
--- OUTSIDE RECORDS SUMMARY | 2025-03-04 11:34 | XMS_ITS | Encounter Summary ---
Author Organization [facility] Address [address] [place] [address] Phone Care Team Providers Care Foot Worker Name Role Phone Chidi Torres MD Primary Care Provider Chidi Torres MD Unavailable [phone] Billy Roman MD Unavailable Zora Gallagher CNP Primary Care Provider Chidi Torres MD Unavailable [phone] Stefanie Dow MD Unavailable [phone] Zora Gallagher CNP Unavailable Encounter Details Date Type Department Care Team (Late st Contact Info) Description 12/19/2020 Procedure Pass [facility] Electrophysiology Lab [address] [place] [address] Social History Tobacco Use Types Packs/Day Years [...] st Contact Info) Description 02/26/2024 Procedure Pass [facility] 30 [place] [address] 03/09/2025 10:45 AM EDT Appointment [facility] 30 [place] [address] Zora Gallagher, WIRELESS MANAGER 234 [facility] 7 [place] [address] 03/11/2025 9:15 AM EDT Office Visit [facility] Orthopedics & Sports Medicine [address] [place] [address] Alyssa Helms MD [address] [place] [address] Orthopedics & Sports Medicine, [facility] [place] [address] [email or web address] 04/27/2025 9:00 AM EST Office Visit [address] [address] Zora Gallagher, WIRELESS MANAGER [address] [address] 05/24/2025 10:00 AM EST Office Visit [facility] [address] [place] [address] 3rd Floor, [address] [place] [address] John Bean MD [address] [place] [address] documented as of this encounter Visit Diagnoses [...] documented as of this encounter Care Teams Foot Worker Relationship Specialty Start Date End Date Chidi Torres MD [address] [place] [address] [email or web address] PCP - General 03/06/17 08/13/23 Zora Gallagher CNP [address] [place] [address] [email or web address] PCP - General Nurse Practitioner 08/14/23 Chidi Torres MD [address] [place] [address] [email or web address] Insurance Assigned Provider 08/25/21 11/11/21 Billy Roman MD [address] [place] [address] [email or web address] Cardiology 11/12/21 Chidi Torres MD [address] [place] [address] [email or web address] Insurance Assigned Provider 08/25/21 08/23/23 Stefanie Dow MD [address] [place] [address], [address] [place] [address] [email or web address] Insurance Assigned Provider 08/23/23 08/22/24 Zora Gallagher CNP [address] [place] [address], [address] [place] [address] [email or web address] Insurance Assigned Provider 08/22/24 documented as of this encounter Additional Source Comments The information contained in this document represents components of the legal health record. It is not the complete legal health record.[facility]
--- OUTSIDE RECORDS SUMMARY | 2025-03-04 11:34 | XMS_ITS | Encounter Summary ---
Author Organization [facility] Address [address] [facility] [address] [place] [address] Phone Care Team Providers Care Steeplechase Jockey Name Role Phone Billy Roman MD Unavailable Zora Gallagher DEVELOPMENT CHEMIST Primary Care Provider Zora Gallagher CNP Unavailable Reason for Visit * Reason Onset Date Comments Care Coordination 03/03/2025 [facility] Virtual A W[place] Outreach Encounter Details Date Type Department Care Team (Late st Contact Info) Description 03/03/2025 Telephone [facility] Phys[facility] -[facility] TEAM [address] [place] [address] Zora Gallagher, DEVELOPMENT CHEMIST 234 [facility], [address] [place] [address] [email or web address] Care Coordination ([facility] Virtual AWV Outreach/) Social History Tobacco Use Types Packs/Day Years [...] on file documented as of this encounter Progress Notes * Jeannie Ha - 03/03/2025 2:55 PM EDT [facility] Population Health Service Organization ([facility]) Annual Wellness Project: Patient has been identified as an individual who would benefit from a virtual Annual Wellness Visitthrough the [facility] PHSO AWV Project. Patient declined appointment. Not interested at this time. Encouraged patient to contact PCP to setup a plan of care. Jeannie Ha [facility] Steeplechase Jockey documented in this encounter Plan of Treatment Upcoming Encounters Date Type Department Care Team (Late st Contact Info) Description 02/26/2024 Procedure Pass [address] [address] 03/09/2025 10:45 AM EDT Appointment [address] [address] Lucia Gallagherghan, DEVELOPMENT CHEMIST 234 [facility] 7 [place] [address] 03/11/2025 9:15 AM EDT Office Visit [facility] Orthopedics & Sports Medicine [address] [place] [address] Alyssa Helms MD [address] [place] [address] Orthoped[facility] & Sports [facility] [place] [address] [email or web address] 04/27/2025 9:00 AM EST Office Visit [facility] Family Medicine [address] [place] [address] Zora Gallagher CNP 234 [facility] 7 [place] [address] 05/24/2025 10:00 AM EST Office Visit [facility] [address] [facility] 3rd Floor, [address] [place] [address] John Bean MD 50 [place] [address] documented as of this encounter Visit Diagnoses Not on filedocumented in this encounter Additional Health Concerns Assessment Noted Time PHQ-2 Depression Total Score: 0 08/27/19 24 11:28 AM EDT documented as of this encounter Care Teams Steeplechase Jockey Relationship Specialty Start Date End Date Zora Gallagher CNP 234 [facility] 7 [place] [address] PCP - General Nurse Practitioner 08/14/23 Billy Roman MD [address] [address] [email or web address] Cardiology 11/12/21 Zora Gallagher CNP 234 [facility] 7 [place] [address] Insurance Assigned Provider 08/22/24 documented as of this encounter Additional Source Comments The information contained in this document represents components of the legal health record. It is not the complete legal health record[facility]
--- OUTSIDE RECORDS SUMMARY | 2025-03-04 11:34 | XMS_ITS | Encounter Summary ---
Author Organization [facility] Address [address] [place] [address] Phone Care Team Providers Care Financial Aid Advisor Name Role Phone Chidi Torres MD Primary Care Provider Chidi Torres MD Unavailable [phone] Chidi Torres MD Unavailable Billy Roman MD Unavailable [phone] Zora Gallagher LOADER HELPER SORTING YARD Primary Care Provider Chidi Torres MD Unavailable [phone] Stefanie Dow MD Unavailable [phone] Zora Gallagher LOADER HELPER SORTING YARD Unavailable Encounter Details Date Type Department Care Team (Late st Contact Info) Description 05/23/2020 Procedure Pass [facility], [address] [place] [address] Social History Tobacco Use Types Packs/Day Years [...] Contact Info) Description 02/26/2024 Procedure Pass [address] [address] 03/09/2025 10:45 AM EDT Appointment [address] [address] Zora Gallagher, MU [address] [address] 03/11/2025 9:15 AM EDT Office Visit [facility] [address] [place] [address] Alyssa Helms MD [address] [place] [address] Orthopedics & Sports Medicine, [place] [address] [email or web address] 04/27/2025 9:00 AM EST Office Visit [facility] [address] [place] [address] Zora Gallagher CNP [address] [address] 05/24/2025 10:00 AM EST Office Visit [facility] [address] [place] [address] 3rd Floor, [address] [place] [address] John Bean MD [address] [place] [address] [email or web address] documented as of this encounter Visit Diagnoses [...] documented as of this encounter Care Teams Financial Aid Advisor Relationship Specialty Start Date End Date Chidi Torres MD [address] [place] [address] [email or web address] PCP - General 03/06/17 08/13/23 Zora Gallagher CNP [address] [place] [address] [place] [address] [email or web address] PCP - General Nurse Practitioner 08/14/23 Chidi Torres MD [address] [place], [place] [address] [place] [address] [email or web address] Insurance Assigned Provider 03/25/20 07/22/20 Chidi Torres MD [address] [place] [address] [place] [address] Insurance Assigned Provider 08/25/21 11/11/21 Billy Roman MD [address] [place] [address] [email or web address] Cardiology 11/12/21 Chidi Torres MD [address] [place] [address], [address] [place] [address] Insurance Assigned Provider 08/25/21 08/23/23 Stefanie Dow MD [address] [place] [address], [address] [place] [phone] Insurance Assigned Provider 08/23/23 08/22/24 Zora Gallagher CNP [address] [place] [address], [address] [place] [address] Insurance Assigned Provider 08/22/24 documented as of this encounter Additional Source Comments The information contained in this document represents components of the legal health record. It is not the complete legal health record.[facility]
--- OUTSIDE RECORDS SUMMARY | 2025-03-04 11:34 | XMS_ITS | Encounter Summary ---
Author Organization [facility] Address [address] [place] [address] [place] [address] Phone Care Team Providers Care Turret Press Operator Name Role Phone Chidi Torres MD Primary Care Provider [phone] Chidi Torres MD Unavailable Billy Roman MD Unavailable Zora Gallagher CNP Primary Care Provider Chidi Torres MD Unavailable Stefanie Dow MD Unavailable Zora Gallagher CNP Unavailable [phone] Encounter Details Date Type Department Care Team (Late st Contact Info) Description 08/10/2021 Transcribe [facility] 22 [facility] 3rd Floor, [address] [place] [address] Lucinda Rodríguez, FUEL STORAGE TECHNICIAN 75 [facility] [address] [place] [address] [email or web address] Social History Tobacco Use Types [...] st Contact Info) Description 02/26/2024 Procedure Pass [address] [address] 03/09/2025 10:45 AM EDT Appointment [address] [address] Aileen Zora, SOLAR INSTALLATION MANAGER [address] [address] 03/11/2025 9:15 AM EDT Office Visit [facility] Orthopedics & Sports Medicine [address] [place] [address] Alyssa Helms MD [address] [place] [address] Orthopedics & Sports Medicine, [facility] [place] [address] [email or web address] 04/27/2025 9:00 AM EST Office Visit [address] [address] Shmuel Gallagheran, SOLAR INSTALLATION MANAGER [address] [address] 05/24/2025 10:00 AM EST Office Visit [facility] 22 [facility] 3rd Floor, [address] [place] [address] John Bean MD [address] [place] [address] documented as of this encounter Visit Diagnoses Not on filedocumented in this encounter Additional Health Concerns Infection Onset Date Last Indicated Resolved Time CoV-Risk 10/03/2021 10/03/2021 10/14/2021 1:22 AM EDT CoV-Presumed 01/05/2022 01/05/2022 01/26/2022 1:21 AM EDT Assessment Noted Time PHQ-2 Depression Total Score: 0 11/24/19 9:14 AM EDT documented as of this encounter Care Teams Turret Press Operator Relationship Specialty Start Date End Date Chidi Torres MD [address] [place] [address] 7 [place] [address] [email or web address] PCP - General 03/06/17 08/13/23 Zora Gallagher CNP [address] [place] [address] 7 [place] [address] PCP - General Nurse Practitioner 08/14/23 Chidi Torres MD [address] [place] [address] 7 [place] [address] [email or web address] Insurance Assigned Provider 08/25/21 11/11/21 Billy Roman MD [address] [place] [address] [email or web address] Cardiology 11/12/21 Chidi Torres MD [address] [place] [address] 7 [place] [address] Insurance Assigned Provider 08/25/21 08/23/23 Stefanie Dow MD [address] [place] [address] 7 [place] [phone] Insurance Assigned Provider 08/23/23 08/22/24 Zora Gallagher CNP [address] [place] [address], [address] [place] [address] [email or web address] Insurance Assigned Provider 08/22/24 documented as of this encounter Additional Source Comments The information contained in this document represents components of the legal health record. It is not the complete legal health record.[facility]
--- OUTSIDE RECORDS SUMMARY | 2025-03-04 11:34 | XMS_ITS | Encounter Summary ---
Author Organization [facility] Address [address] [place] [address] Phone Care Team Providers Care Clay Maker Name Role Phone Chidi Torres MD Primary Care Provider [phone] Chidi Torres MD Unavailable [phone] Billy Roman MD Unavailable [phone] Zora Gallagher CNP Primary Care Provider Chidi Torres MD Unavailable Stefanie Dow MD Unavailable Zora Gallagher MANAGER PRODUCT MARKETING Unavailable Encounter Details Date Type Department Care Team (Late st Contact Info) Description 08/09/2021 Procedure Pass [facility] EKG [address] [place] [address] Social History Tobacco Use Types Packs/Day Years [...] Contact Info) Description 02/26/2024 Procedure Pass [facility] [address] [place] [address] 03/09/2025 10:45 AM EDT Appointment [address] [address] Zora Gallagher, MANAGER PRODUCT MARKETING 234 [facility] 7 [place] [address] 03/11/2025 9:15 AM EDT Office Visit [facility]ics & Sports Medicine [address] [place] [address] Alyssa Helms MD [address] [place] [address] Orthopedics & Sports Medicine, [facility] [place] [address] [email or web address] 04/27/2025 9:00 AM EST Office Visit [address] [address] Zora Gallagher, MANAGER PRODUCT MARKETING 234 [facility] 7 [place] [address] 05/24/2025 10:00 AM EST Office Visit [facility] [address] [place] [address] 3rd Floor, [address] [place] [address] John Bean MD [address] [place] [address] documented as of this encounter Visit Diagnoses Not on filedocumented in this encounter Additional Health Concerns Infection Onset Date Last Indicated Resolved Time CoV-Risk 10/03/2021 10/03/2021 10/14/2021 1:22 AM EDT CoV-Presumed 01/05/2022 01/05/2022 01/26/2022 1:21 AM EDT Assessment Noted Time PHQ-2 Depression Total Score: 0 11/24/19 9:14 AM EDT documented as of this encounter Care Teams Clay Maker Relationship Specialty Start Date End Date Chidi Torres MD [address] [place] [address] 7 [place] [address] [email or web address] PCP - General 03/06/17 08/13/23 Zora Gallagher CNP [address] [place] [address] 7 [place] [address] [email or web address] PCP - General Nurse Practitioner 08/14/23 Chidi Torres MD [address] [place] [address] 7 [place] [address] [email or web address] Insurance Assigned Provider 08/25/21 11/11/21 Billy Roman MD [address] [place] [address] [email or web address] Cardiology 11/12/21 Chidi Torres MD [address] [place] [address] 7 [place] [address] [email or web address] Insurance Assigned Provider 08/25/21 08/23/23 Stefanie Dow MD [address] [place] [address], [facility] 7 [place] [address] [email or web address] Insurance Assigned Provider 08/23/23 08/22/24 Zora Gallagher CNP [address] [place] [address] 7 [place] [address] [email or web address] Insurance Assigned Provider 08/22/24 documented as of this encounter Additional Source Comments The information contained in this document represents components of the legal health record. It is not the complete legal health record.[facility]
--- OUTSIDE RECORDS SUMMARY | 2025-03-04 11:34 | XMS_ITS | Encounter Summary ---
Author Organization [facility] Address [address] [place] [address] Phone Care Team Providers Care Lease Attendant Name Role Phone Billy Roman MD Unavailable [phone] Zora Gallagher CNP Primary Care Provider [phone] Zora Gallagher CNP Unavailable [phone] Encounter Details Date Type Department Care Team (Late st Contact Info) Description 02/04/2025 Orders Only [facility] 234 [place] [address] Provider, MD [facility] [place] [address] Social History Tobacco Use Types Packs/Day Years [...] st Contact Info) Description 02/26/2024 Procedure Pass [address] [address] 03/09/2025 10:45 AM EDT Appointment [address] [address] Aileen Zora, UNINDENTURED APPRENTICE 234 [facility] 7 [place] [address] 03/11/2025 9:15 AM EDT Office Visit [facility] Orthopedics & Sports Medicine [address] [place] [address] Alyssa Helms MD [address] [place] [address] Orthopedics & Sports Medicine, [place] [address] [email or web address] 04/27/2025 9:00 AM EST Office Visit [address] [address] Aileen Zora, UNINDENTURED APPRENTICE [address] [address] 05/24/2025 10:00 AM EST Office Visit [facility] [address] [place] [address] 3rd Floor, [address] [place] [address] John Bean MD [address] [place] [address] documented as of this encounter Procedures Procedure Name Priority Date/Time Associated Diagnosis Comments OUTSIDE LAB Routine 02/04/2025 9:32 AM EDT documented in this encounter Results * Outside Lab (02/04/2025 9:32 AM EDT) us Historical Provider LAB BLOOD ORDERABLES Glenna l Result documented in this encounter Visit Diagnoses Not on filedocumented in this encounter Additional Health Concerns Assessment Noted Time PHQ-2 Depression Total Score: 0 08/27/19 11:28 AM EDT documented as of this encounter Care Teams Lease Attendant Relationship Specialty Start Date End Date Zora Gallagher CNP 234 [facility], [facility] 7 [place] [address] [email or web address] PCP - General Nurse Practitioner 08/14/23 Billy Roman MD [address] [place] [address] [email or web address] Cardiology 11/12/21 Zora Gallagher CNP [address] [place] [address], [facility] 7 [place] [address] [email or web address] Insurance Assigned Provider 08/22/24 documented as of this encounter Additional Source Comments The information contained in this document represents components of the legal health record. It is not the complete legal health record.[facility]
--- OUTSIDE RECORDS SUMMARY | 2025-03-04 11:34 | XMS_ITS | Encounter Summary ---
Author Organization [facility] Address [address] [place] [address] Phone Care Team Providers Care Vice Squad Police Officer Name Role Phone Chidi Torres MD Primary Care Provider Chidi Torres MD Unavailable Chidi Torres MD Unavailable [phone] Billy Roman MD Unavailable Zora Gallagher TRAPEZE ARTIST Primary Care Provider Chidi Torres MD Unavailable Stefanie Dow MD Unavailable [phone] Zora Gallagher TRAPEZE ARTIST Unavailable [phone] Reason for Referral * MRI/CAT Scan - Closed Specialty Diagnoses / Procedures Referred By Monica scott Referred To Contact Radiology Diagnoses Neck pain Procedures MRI Cervical Spine Jessie Green MD Phone: tel: fax: Referral ID Status Reason Start Date Expiration Date Visits Re quested Visits Authorized [id number] Closed 05/23/2020 05/23/2021 1 1 Encounter Details Date Type Department Care Team (Latest Contact Info) Description 05/23/2020 Transcribe Orders [facility] Department [address] [place] [address] Jessie Green MD 299 [facility] [address] [place] [address] Neck pain (Primary Dx) Social History Tobacco [...] st Contact Info) Description 02/26/2024 Procedure Pass [address] [address] 03/09/2025 10:45 AM EDT Appointment [address] [address] Zora Gallagher, TRAPEZE ARTIST [address] [address] 03/11/2025 9:15 AM EDT Office Visit [facility]ics [facility] Sports Medicine [address] [place] [address] Alyssa Helms MD [address] [place] [address] Orthoped[facility] [place] [address] [email or web address] 04/27/2025 9:00 AM EST Office Visit [facility] [address] [place] [address] Zora Gallagher, TRAPEZE ARTIST [address] [address] 05/24/2025 10:00 AM EST Office Visit [facility] 3rd Floor, [address] [place] [address] John Bean MD [address] [place] [address] documented as of this encounter Results * [...] Neck pain- Primary Cervicalgia Neck pain Cervicalgia Rotator cuff arthropathy of [...] documented as of this encounter Care Teams Vice Squad Police Officer Relationship Specialty Start Date End Date Chidi Torres MD [address] [place] [address] 7 [place] [address] PCP - General 03/06/17 08/13/23 Zora Gallagher CNP [address] [place] [address] 7 [place] [address] PCP - General Nurse Practitioner 08/14/23 Chidi Torres MD [address] [place] [address] 7 [place] [phone] Insurance Assigned Provider 03/25/20 07/22/20 Chidi Torres MD [address] [place] [address] 7 [place] [phone] Insurance Assigned Provider 08/25/21 11/11/21 Billy Roman MD [address] [place] [address] [email or web address] Cardiology 11/12/21 Chidi Torres MD [address] [place] [address] 7 [place] [address] Insurance Assigned Provider 08/25/21 08/23/23 Stefanie Dow MD [address] [place] [address] 7 [place] [phone] Insurance Assigned Provider 08/23/23 08/22/24 Zora Gallagher CNP [address] [place] [address] 7 [place] [phone] Insurance Assigned Provider 08/22/24 documented as of this encounter Additional Source Comments The information contained in this document represents components of the legal health record. It is not the complete legal health record.[facility]
--- OUTSIDE RECORDS SUMMARY | 2025-03-04 11:34 | XMS_ITS | Encounter Summary ---
Author Organization [facility] Address [address] [place] [address] [address] [place] [address] Phone Care Team Providers Care Elderly Sitter Name Role Phone Chidi Torres MD Primary Care Provider Chidi Torres MD Unavailable Chidi Torres MD Unavailable [phone] Chidi Torres MD Unavailable Billy Roman MD Unavailable [phone] Zora Gallagher CNP Primary Care Provider Chidi Torres MD Unavailable Stefanie Dow MD Unavailable Zora Gallagher CNP Unavailable [phone] Encounter Details Date Type Department Care Team (Late st Contact Info) Description 05/21/2018 Ancillary Orders [facility] Medicine 234 [place], [place] [phone] Chidi Torres MD 234 [facility], [address] [place], [place] [id number] [email or web address] Abnormal mammogram Social History Tobacco Use Types [...] st Contact Info) Description 02/26/2024 Procedure Pass [address] [address] 03/09/2025 10:45 AM EDT Appointment [address] [address] Zora Gallagher, PREMIUM REPRESENTATIVE 234 [facility] 7 [place] [address] 03/11/2025 9:15 AM EDT Office Visit [facility] Orthopedics & Sports Medicine [address] [place] [address] Alyssa Helms MD [address] [place] [address] Orthopedics & Sports Medicine, [place] [address] [email or web address] 04/27/2025 9:00 AM EST Office Visit [address] [address] Zora Gallagher, PREMIUM REPRESENTATIVE 234 [facility] 7 [place] [address] 05/24/2025 10:00 AM EST Office Visit [facility] 3rd Floor, [address] [place] [address] John Bean MD 50 [place] [address] documented as of this encounter Results * [...] There are scattered fibroglandular densities. POS - [id number] Narrative 06/12/2018 3:30 PM EST 62-year-old female [...] the outer right breast. Procedure Note Rekha Nugetn MD - 06/12/2018 62-year-old female who presents [...] There are scattered fibroglandular densities. POS - [id number] Chidi Torres MD IMG MG EXAMS Edited Result - Final documented in this encounter Visit Diagnoses Diagnosis Abnormal mammogram Abnormal mammogram, unspecified Abnormal mammogram Abnormal mammogram, unspecified Abnormal mammogram Abnormal mammogram, unspecified Rotator cuff arthropathy of left shoulder- Primary [...] documented as of this encounter Care Teams Elderly Sitter Relationship Specialty Start Date End Date Chidi Torres MD [address] [place] [address] [email or web address] PCP - General 03/06/17 08/13/23 Zora Gallagher CNP [address] [place] [address] [email or web address] PCP - General Nurse Practitioner 08/14/23 Chidi Torres MD [address] [place] [address] [email or web address] Insurance Assigned Provider 09/19/18 02/27/19 Chidi Torres MD [address] [place] [address] [place] [address] [email or web address] Insurance Assigned Provider 03/25/20 07/22/20 Chidi Torres MD [address] [place] [address] 7 [place] [address] Insurance Assigned Provider 08/25/21 11/11/21 Billy Roman MD [address] [address] [email or web address] Cardiology 11/12/21 Chidi Torres MD [address] [place] [address], [address] [place] [address] Insurance Assigned Provider 08/25/21 08/23/23 Stefanie Dow MD [address] [place] [address], [address] [place] [address] Insurance Assigned Provider 08/23/23 08/22/24 Zora Gallagher CNP [address] [place] [address], [address] [place] [address] Insurance Assigned Provider 08/22/24 documented as of this encounter Additional Source Comments The information contained in this document represents components of the legal health record. It is not the complete legal health record.[facility]
--- OUTSIDE RECORDS SUMMARY | 2025-03-04 11:34 | XMS_ITS | Encounter Summary ---
Author Organization [facility] Address [address] [place] [address] Phone Care Team Providers Care Dog Groomer Name Role Phone Chidi Torres MD Primary Care Provider Chidi Torres MD Unavailable [phone] Billy Roman MD Unavailable Zora Gallagher CNP Primary Care Provider [phone] Chidi Torres MD Unavailable Stefanie Dow MD Unavailable Zora Gallagher [facility] Unavailable Reason for Referral * MRI/CAT Scan - Closed Specialty Diagnoses / Procedures Referred By Contac t Referred To Contact Radiology Diagnoses Nonintractable headache, unspecified chronicity pattern, unspecified headache type Procedures MRI Brain Nirali Rausch MD [address]&[place] [address] Phone: tel: fax: Referral ID Status Reason Start Date Expiration Date Visits Re quested Visits Authorized [id number] Closed 09/14/2021 09/14/2022 1 1 Encounter Details Date Type Department Care Team (Latest Contact Info) Description 09/14/2021 Transcribe Orders Virtual Department 30 [place] [address] Nirali Rausch MD 3300 [facility] 3C&[place] [address] Nonintractable headache, unspecified chronicity pattern, unspecified headache [...] st Contact Info) Description 02/26/2024 Procedure Pass [address] [address] 03/09/2025 10:45 AM EDT Appointment [address] [address] Zora Gallagher, MU [address] [address] 03/11/2025 9:15 AM EDT Office Visit [facility] [address] [place] [address] Alyssa Helms MD [address] [place] [address] [facility] [place] [address] [email or web address] 04/27/2025 9:00 AM EST Office Visit [address] [address] Zora Gallagher CNP 234 [facility], [facility] 7 [place] [address] 05/24/2025 10:00 AM EST Office Visit [facility] [address] 3rd Floor, [address] [place] [address] John Bean MD [address] [place] [address] documented as of this encounter Results * [...] headache, unspecified chronicity pattern, unspecified headache type Rotator cuff arthropathy of left shoulder- Primary documented in this encounter Additional Health Concerns Infection Onset Date Last Indicated Resolved Time CoV-Risk 10/03/2021 10/03/2021 10/14/2021 1:22 AM EDT CoV-Presumed 01/05/2022 01/05/2022 01/26/2022 1:21 AM EDT Assessment Noted Time PHQ-2 Depression Total Score: 0 11/24/19 9:14 AM EDT documented as of this encounter Care Teams Dog Groomer Relationship Specialty Start Date End Date Chidi Torres MD [address] [place] [address] [email or web address] PCP - General 03/06/17 08/13/23 Zora Gallagher CNP [address] [place] [address] [email or web address] PCP - General Nurse Practitioner 08/14/23 Chidi Torres MD [address] [place] [address] [email or web address] Insurance Assigned Provider 08/25/21 11/11/21 Billy Roman MD [address] [address] [email or web address] Cardiology 11/12/21 Chidi Torres MD [address] [place] [address], [address] [place] [address] Insurance Assigned Provider 08/25/21 08/23/23 Stefanie Dow MD [address] [place] [address], [address] [place] [address] Insurance Assigned Provider 08/23/23 08/22/24 Zora Gallagher CNP [address] [place] [address], [address] [place] [address] [email or web address] Insurance Assigned Provider 08/22/24 documented as of this encounter Additional Source Comments The information contained in this document represents components of the legal health record. It is not the complete legal health record.[facility]
--- OUTSIDE RECORDS SUMMARY | 2025-03-04 11:34 | XMS_ITS | Encounter Summary ---
Author Organization [facility] Address [address] [place] [address] Phone Care Team Providers Care Side Trimmer Name Role Phone Chidi Torres MD Primary Care Provider Chidi Torres MD Unavailable Billy Roman MD Unavailable Zora Gallagher CNP Primary Care Provider Chidi Torres MD Unavailable Stefanie Dow MD Unavailable [phone] Zora Gallagher CNP Unavailable Encounter Details Date Type Department Care Team (Late st Contact Info) Description 04/16/2021 Procedure Pass [facility] Electrophysiology Lab [address] [place] [address] Social History Tobacco Use Types Packs/Day Years [...] st Contact Info) Description 02/26/2024 Procedure Pass [facility] 30 [place] [address] 03/09/2025 10:45 AM EDT Appointment [facility] 30 [place] [address] Zora Gallagher, TURBINATED BONE GRINDER 234 [facility] 7 [place] [address] 03/11/2025 9:15 AM EDT Office Visit [facility] [address] [place] [address] Alyssa Helms MD [address] [place] [address] Orth[facility], [facility] [place] [address] [email or web address] 04/27/2025 9:00 AM EST Office Visit [address] [address] Zora Gallagher, TURBINATED BONE GRINDER [address] [address] 05/24/2025 10:00 AM EST Office Visit [facility] [address] [place] [address] 3rd Floor, [address] [place] [address] John Bean MD [address] [place] [address] documented as of this encounter Visit Diagnoses [...] documented as of this encounter Care Teams Side Trimmer Relationship Specialty Start Date End Date Chidi Torres MD [address] [place] [address], [facility] 7 [place] [address] [email or web address] PCP - General 03/06/17 08/13/23 Zora Gallagher CNP [address] [place] [address] 7 [place] [address] PCP - General Nurse Practitioner 08/14/23 Chidi Torres MD [address] [place] [address] 7 [place] [id number] Insurance Assigned Provider 08/25/21 11/11/21 Billy Roman MD [address] [place] [address] [email or web address] Cardiology 11/12/21 Chidi Torres MD [address] [place] [address] 7 [place] [phone] Insurance Assigned Provider 08/25/21 08/23/23 Stefanie Dow MD [address] [place] [address], [facility] 7 [place], [place] [phone] Insurance Assigned Provider 08/23/23 08/22/24 Zora Gallagher CNP [address] [place] [address] 7 [place] [address] [email or web address] Insurance Assigned Provider 08/22/24 documented as of this encounter Additional Source Comments The information contained in this document represents components of the legal health record. It is not the complete legal health record.[facility]
--- OUTSIDE RECORDS SUMMARY | 2025-03-04 11:34 | XMS_ITS | Encounter Summary ---
Author Organization [facility] Address [address] [place] [address] [address] [place] [address] Phone Care Team Providers Care Media Senior Recruiter Name Role Phone Chidi Torres MD Primary Care Provider [phone] Chidi Torres MD Unavailable Chidi Torres MD Unavailable [phone] Billy Roman MD Unavailable Zora Gallagher CNP Primary Care Provider Chidi Torres MD Unavailable Stefanie Dow MD Unavailable [phone] Zora Gallagher CREDIT RISK ANALYTICS MANAGER Unavailable Reason for Referral * MRI/CAT Scan - Closed Specialty Diagnoses / Procedures Referred By Contabisai t Referred To Contact Diagnoses Paroxysmal supraventricular tachycardia Procedures MCT (Mobile Cardiac Telemetry) Jennifer Dumont MD Phone: tel: Referral ID Status Reason Start Date Expiration Date Visits Re quested Visits Authorized [id number] Closed 04/01/2019 03/31/2020 1 1 Encounter Details Date Type Department Care Team (Latest Contact Info) Description 04/01/2019 Ancillary [facility] 3rd Floor, [address] [place], [place] [phone] Jennifer Dumont MD [address] [address] Paroxysmal supraventricular tachycardia Social History Tobacco Use [...] st Contact Info) Description 02/26/2024 Procedure Pass [address] [address] 03/09/2025 10:45 AM EDT Appointment [address] [address] Zora Gallagher, MU [address] [address] 03/11/2025 9:15 AM EDT Office Visit [facility] [address] [place] [address] Alyssa Helms MD [address] [place] [address] Orthopedics & Sports Medicine, [facility] [place] [address] [email or web address] 04/27/2025 9:00 AM EST Office Visit [facility] [address] [place] [address] Zora Gallagher CNP 234 [facility], [address] [address] 05/24/2025 10:00 AM EST Office Visit [facility] [address] [place] [address] 3rd Floor, [address] [place] [address] John Bean MD 50 [place] [address] [email or web address] Scheduled Orders Name Type Priority Associated Diagnoses Orde r Schedule MCT (Mobile Cardiac Telemetry) Cardiac Monitors Routine Paroxysmal supraventricular tachycardia Expected: 04/08/2019, Expires: 03/31/2020 documented as of this encounter Visit Diagnoses Diagnosis Paroxysmal supraventricular tachycardia Rotator cuff arthropathy of left shoulder- Primary [...] documented as of this encounter Care Teams Media Senior Recruiter Relationship Specialty Start Date End Date Chidi Torres MD 234 [facility], [facility] 7 [place] [address] [email or web address] PCP - General 03/06/17 08/13/23 Zora Gallagher CNP [address] [place] [address], [facility] 7 [place] [address] PCP - General Nurse Practitioner 08/14/23 Chidi Torres MD [address] [place] [address], [facility] 7 [place] [id number] Insurance Assigned Provider 03/25/20 07/22/20 Chidi Torres MD [address] [place] [address] 7 [place] [address] [email or web address] Insurance Assigned Provider 08/25/21 11/11/21 Billy Roman MD [address] [address] [email or web address] Cardiology 11/12/21 Chidi Torres MD [address] [place] [address] 7 [place] [address] [email or web address] Insurance Assigned Provider 08/25/21 08/23/23 Stefanie Dow MD [address] [place] [address] 7 [place] [id number] Insurance Assigned Provider 08/23/23 08/22/24 Zora Gallagher CNP [address] [place] [address], [facility] 7 [place] [id number] Insurance Assigned Provider 08/22/24 documented as of this encounter Additional Source Comments The information contained in this document represents components of the legal health record. It is not the complete legal health record.[facility]
--- OUTSIDE RECORDS SUMMARY | 2025-03-04 11:34 | XMS_ITS | Encounter Summary ---
Author Organization [facility] Address [address] [place] [address] Phone Care Team Providers Care Aboriginal Ceremonial Celebrant Name Role Phone Chidi oTrres MD Primary Care Provider Chidi Torres MD Unavailable [phone] Chidi Torres MD Unavailable Billy Roman MD Unavailable Zora Gallagher CNP Primary Care Provider [phone] Chidi Torres MD Unavailable Stefanie Dow MD Unavailable Zora Gallagher CNP Unavailable Reason for Referral * Physical Therapy (Elective) - Closed Specialty Diagnoses / Procedures Referred By Monica scott Referred To Contact Physical Therapy Diagnoses Encounter for rehabilitation Both Legs balance /trunk control Procedures Evaluate & Treat Jessie Green MD Phone: tel: fax: [address] [address] Phone: tel: Referral ID Status Reason Start Date Expiration Date Visits Re quested Visits Authorized [id number] Closed 06/15/2019 05/18/2020 18 18 Encounter Details Date Type Department Care Team (Latest Contact Info) Description 06/03/2019 Transcribe Orders [facility] [address] [place] [address] Jessie Green MD 299 [facility] [address] [place] [address] Encounter for rehabilitation (Primary Dx) Social History [...] st Contact Info) Description 02/26/2024 Procedure Pass [address] [address] 03/09/2025 10:45 AM EDT Appointment [address] [address] Zora Gallagher, MU [address] [address] 03/11/2025 9:15 AM EDT Office Visit [facility] [address] [place] [address] Alyssa Helms MD [address] [place] [address] Orthopedics & Sports Medicine, [facility] [place] [address] [email or web address] 04/27/2025 9:00 AM EST Office Visit [address] [address] Zora Gallagher CNP [address] [place] [address] [place] [address] 05/24/2025 10:00 AM EST Office Visit [facility] [address] 3rd Floor, [address] [place] [address] John Bean MD 50 [place] [address] [email or web address] documented as of this encounter Procedures Procedure Name Priority Date/Time Associated Diagnosis Comments AMB REFERRAL TO [facility] PHYSICAL THERAPY Routine 06/15/2019 9:08 AM EST Encounter for rehabilitation documented in this encounter Results * Ambulatory referral to [facility] Physical Therapy (06/15/2019 9:08 AM EST) Jessie Green MD AMB [facility] REFERRALS Final Result documented in this encounter Visit Diagnoses Diagnosis Encounter for rehabilitation- Primary Rotator cuff arthropathy of left shoulder- [...] documented as of this encounter Care Teams Aboriginal Ceremonial Celebrant Relationship Specialty Start Date End Date Chidi Torres MD [address] [place] [address], [facility] 7 [place] [address] [email or web address] PCP - General 03/06/17 08/13/23 Zora Gallagher CNP [address] [place] [address], [facility] 7 [place] [address] PCP - General Nurse Practitioner 08/14/23 Chidi Torres MD [address] [place] [address], [facility] 7 [place] [address] [email or web address] Insurance Assigned Provider 03/25/20 07/22/20 Chidi Torres MD [address] [place] [address] 7 [place] [address] [email or web address] Insurance Assigned Provider 08/25/21 11/11/21 Billy Roman MD [address] [place] [address] [email or web address] Cardiology 11/12/21 Chidi Torres MD [address] [place] [address] 7 [place] [address] [email or web address] Insurance Assigned Provider 08/25/21 08/23/23 Stefanie Dow MD [address] [place] [address], [facility] 7 [place] [address] [email or web address] Insurance Assigned Provider 08/23/23 08/22/24 Zora Gallagher CNP NPI: [id number] [place] [address], [address] [place] [address] [email or web address] Insurance Assigned Provider 08/22/24 documented as of this encounter Additional Source Comments The information contained in this document represents components of the legal health record. It is not the complete legal health record.[facility]
--- OUTSIDE RECORDS SUMMARY | 2025-03-04 11:35 | XMS_ITS | Encounter Summary ---
Author Organization [facility] Address [address] [place] [address] Phone Care Team Providers Care Powertrain Control Systems Engineer Name Role Phone Chidi Torres MD Primary Care Provider Chidi Torres MD Unavailable Billy Roman MD Unavailable Zora Gallagher CNP Primary Care Provider Chidi Torres MD Unavailable Stefanie Dow MD Unavailable Zora Gallagher CNP Unavailable Encounter Details Date Type Department Care Team (Late st Contact Info) Description 03/21/2021 Procedure Pass [facility] Electrophysiology Lab [address] [place] [address] Social History Tobacco Use Types Packs/Day Years [...] st Contact Info) Description 02/26/2024 Procedure Pass [facility] 30 [place] [address] 03/09/2025 10:45 AM EDT Appointment [facility] 30 [place] [address] Zora Gallagher, POPULATION GENETICIST 234 [facility] 7 [place] [address] 03/11/2025 9:15 AM EDT Office Visit [facility] [address] [place] [address] Alyssa Helms MD [address] [place] [address] Orthopedics & Sports Medicine, [facility] [place] [address] [email or web address] 04/27/2025 9:00 AM EST Office Visit [address] [address] Zora Gallagher, POPULATION GENETICIST [address] [address] 05/24/2025 10:00 AM EST Office Visit [facility] [address] [place] [address] 3rd Floor, [address] [place] [address] John Bean MD [address] [place] [address] documented as of this encounter Visit Diagnoses [...] documented as of this encounter Care Teams Powertrain Control Systems Engineer Relationship Specialty Start Date End Date Chidi Torres MD [address] [place] [address], [facility] 7 [place] [address] [email or web address] PCP - General 03/06/17 08/13/23 Zora Gallagher CNP [address] [place] [address] 7 [place] [address] PCP - General Nurse Practitioner 08/14/23 Chidi Torres MD [address] [place] [address] 7 [place] [phone] Insurance Assigned Provider 08/25/21 11/11/21 Billy Roman MD [address] [place] [address] [email or web address] Cardiology 11/12/21 Chidi Torres MD [address] [place] [address] 7 [place] [id number] Insurance Assigned Provider 08/25/21 08/23/23 Stefanie Dow MD [address] [place] [address], [facility] 7 [place], [place] [phone] Insurance Assigned Provider 08/23/23 08/22/24 Zora Gallagher CNP [address] [place] [address] 7 [place] [address] [email or web address] Insurance Assigned Provider 08/22/24 documented as of this encounter Additional Source Comments The information contained in this document represents components of the legal health record. It is not the complete legal health record.[facility]
== END 2025-03-04 09:56 | disposition home or self-care (01) ==
LOC: HO.MRI 09:55
PROVIDERS: PCP Nurse Practitioner Family; Visit Provider Nurse Practitioner
DX: M54.2 Cervicalgia (principal); R26.9 Unspecified abnormalities of gait and mobility
CPT/HCPCS: 70551; 72141

== ENCOUNTER 2025-03-30 09:56 | Outpatient (AMB) | payer MEDICARE, SELFPAY ==
--- NOTE | 2025-03-30 09:57 | MHC.OFFVIS ---
Vital Signs 03/30/25 10:09 Height 5 ft 8 in Weight 132 lb BMI 20.1 BP 120/70 Blood Pressure Location Rt brachial Position Sitting Respiration 17 Pulse 82 Pulse Source Pulse Oximeter Pulse Oximetry (%) 100 Oxygen Delivery Method Room Air Intake Visit Reasons: Nerve block Beekeeper Required: No Allergies No Known Allergies Allergy (Verified 03/30/25 10:10) HPI Comments Details: Renetta is a 69-year-old female patient with a past history of chronic headaches and cardiac arrhythmias who is here today for occipital nerve block injections and trigger point injections. Historically, headaches has been bilateral and holocephalic described as a pressure sensation originating from the occipital areas without any accompanying migrainous features. She has been successfully treated with occipital nerve blocks. She was previously receiving nerve blocks with steroid regularly. At the time of our last visit, she reported headaches remained the same as described above. She also had noted some tension to her shoulder areas. She has been consistent with her cyclobenzaprine though had some inconsistencies with her topiramate. She also had noted some difficulty with the balance which has been ongoing in in the past had not responded well to physical therapy for her gait. She felt as though at times her gait was as if she has been ?drinking?. She denied any dizziness or vertigo. She denied any falls. She also noted some soreness to her thigh muscles typically better in the morning but worsening throughout the day. She denied any back pain. We proceeded with her occipital nerve blocks but this time without steroid and with inclusion of trigger point injections. I also ordered a B12, MMA, CK level, and MRI of the brain and spinal cord. Her testing was relatively unrevealing though she did have a slightly low B12 level and she was recommended supplementation. Her C-spine MRI did show some mild neural foraminal narrowing but otherwise no cord compression or myelopathy to account for her imbalance. She tells me today, she would not like to pursue any further modes of treatment including physical therapy oversight entry at this time. She has noted some right upper extremity paresthesias to the distal end with prior history of carpal tunnel. Symptoms are similar to previous CTS symptoms. She denies any weakness and has been wearing a brace at night which helps. She would not like to pursue any EMG testing at this time that would consider in the future if things worsened. In terms of headache control, she does feel that the addition of trigger point injections provided better relief of her headaches. She also did not notice any difference in the longevity of the injections with exclusion of the steroid. [facility] Medical History (Updated 01/25/25 @ 15:51 by Eloise Moore CNP) Migraine Review of Systems Const All systems reviewed & are unremarkable except as noted in HPI and below Physical Exam Vital Signs: Last Vital Signs Pulse 82 03/30/25 10:09 Resp 17 03/30/25 10:09 BP 120/70 03/30/25 10:09 Pulse Ox 100 03/30/25 10:09 Oxygen Delivery Method Room Air 03/30/25 10:09 BMI result Body Mass Index 20.1 Const General: cooperative, healthy appearing, comfortable and no acute distress Nutritional Appearance: well nourished Orientation/consciousness: patient oriented x3 Limitations: no limitations HEENT Head: Yes normal to inspection and Yes normocephalic Eyes General: appearance normal, both eyes and all related structures Visual Hernandez: normal visual hernandez by confrontation Alignment and Position: alignment normal Periorbital: periorbital findings normal Eyelids: Yes eyelids normal Conjunctivae: conjunctivae normal Sclerae: sclerae normal Direct Ophthalmoscopy: normal light reflex Back/Spine/Pelvis Other: Bilateral occipital notch tenderness and bilateral trapezius trigger points Neuro General: patient oriented x3 and tone normal Cranial nerves: Yes CN's II-XII intact bilaterally and Yes Facial sensation intact/muscles of mastication intact Cognition (Neuro): normal cognition Gait exam (Neuro): Other gait observations present (Appears stiff at the hips and knees bilaterally when ambulating. ) Motor exam (neuro): 5/5 motor strength present throughout and no tremor noted Sensory Exam: double simultaneous stimulation for sensation normal Deep tendon reflexes (DTR's): Right triceps reflex intensity grade: 2+, Left triceps reflex intensity grade: 2+, Rt Biceps (C5, C6): 2+, Left biceps reflex intensity grade: 2+, Right brachioradialis reflex intensity grade: 2+, Left brachioradialis reflex intensity grade: 2+, Right patellar reflex intensity grade: 0, Left patellar reflex intensity grade: 2+, Right ankle reflex intensity grade: 0 and Left ankle reflex intensity grade: 0 Plantar Reflex Responses: downgoing: bilateral Coordination: [id number] test normal Pupils: Normal pupillary reactivity/response: bilateral Psych Appearance: grossly normal Mental Status: mental status grossly normal Speech and movement: Normal speech and movement present and Clear speech present Affect: normal affect Attitude: cooperative Thought process: Normal thought process present Thought content: Normal thought content present Insight: Good insight present (Psych) Judgement: Good judgement present (Psych) Office Procedures Nerve Block Details: Bilateral Greater Occipital Nerve block procedure: Laterally: Bilateral Indications: Occipital neuralgia Current allergies and current list of medications were reviewed prior to procedure, verbal consent was obtained, procedure was explained in detail to the patient prior to starting. Time-out was performed prior to procedure. Following universal hygiene protocols, patient's left occipital area was located by drawing a line between the external occipital protuberance and the mastoid process. The greater occipital nerve was located approximately 2/3 along this gasoline truck operator to the occiput, and corresponded with the point of maximum tenderness. Alcohol was applied topically to the skin. A 27 gauge needle (aspirating during insertion) was inserted at a 45 degree angle until just above the periosteum. The providers selected agent (s)/medications (as documented in this note) were injected on the left side (directing needle to center, left and right of painful focus any fanning technique). Pressure with gauze pad was held briefly upon the site of puncture to minimize bleeding and to further spread anesthetic subcutaneously. The procedure was repeated on the right side. The patient was monitored for 15 minutes after the procedure and no complications were observed. Post procedure care was reviewed with the patient including application of ice intermittently to the injection sites over the course of the day to reduce inflammation. CPT: 79717-Qvglqir Occipital Procedure code (CPT) selection complete Therapeutic Injection Therapeutic Injection Details: Trigger point injection procedure: Laterally:Bilateral Indications: Chronic headaches, myofascial pain Following universal hygiene protocol, after explaining the risks and benefits as well as hazards of the procedure to the patient, consent was signed and placed in the chart. Time-out prior to starting the procedure was performed. The areas over the bilateral trapezius muscles were cleansed with alcohol. 1 Sites in each trapezius muscle injected with a 27 gauge 1.5 in needle with myofascial spasm. Patient tolerated the procedure well, localized bleeding was controlled. Patient monitored in the clinic for 15 minutes for complications. Patient was discharged home with instructions to apply ice to the back of their head as needed. 92342-Bistgaj Point Injection 1 or 2 sites All charges added?: Procedure code (CPT) selection complete Office Meds lidocaine (PF) 10 mg/mL (1 %) injection solution Performing Provider: Eloise Moore CNP Performing Location: [facility] Administered by: Eloise Moore CNP on 03/30/25 10:48 Dose Route Admin Location Dispensed Lot Number Expiration Date [facility] Hadoop Administrator 2 mL peripheral nerve block 2 mL Total Dispensed Waste 2 mL 0 % bupivacaine (PF) 0.25 % (2.5 mg/mL) injection solution Performing Provider: Eloise Moore CNP Performing Location: [facility] Administered by: Eloise Moore CNP on 03/30/25 10:48 Dose Route Admin Location Dispensed Lot Number Expiration Date [facility] Hadoop Administrator 4 mL Infiltration 10 mL [id number] [employer] Total Dispensed Waste 10 mL 60 % bupivacaine (PF) 0.25 % (2.5 mg/mL) injection solution Performing Provider: Eloise Moore CNP Performing Location: [facility] Administered by: Eloise Moore CNP on 03/30/25 10:48 Dose Route Admin Location Dispensed Lot Number Expiration Date [facility] H[employer] Administrator 3 mL Infiltration 10 mL [id number] [employer] Total Dispensed Waste 10 mL 70 % Assessment & Plan Assessment & Plan (1) Occipital headache: Code(s): R51.9 - Headache, unspecified Category: Medical Plan: . (2) Neck pain: Code(s): M54.2 - Cervicalgia Category: Medical (3) Trigger point of left shoulder region: Code(s): M25.512 - Pain in left shoulder Category: Medical Plan Renetta is a 69-year-old female patient with past medical history of chronic headache and cardiac arrhythmias who is presenting today for a follow up visit and repeat nerve block and trigger point injections. We performed procedures without any complications. In terms of imaging, there were no substantial findings to warrant emergent referrals. We could however consider physical therapy or physiatry for some degenerative changes noted in her C-spine though she defers at this time. She also notes some distal right upper extremity paresthesias similar to prior history of CTS. Could consider repeat EMG though she again would like to hold off on this for now. If we should consider, she would like a referral sent to [facility]. -follow-up in 2 months or sooner if needed Orders: Orders AMB Nerve Block Today M25.512 - Pain in left shoulder, M54.2 - Cervicalgia, R51.9 - Headache, unspecified AMB Trigger Point Injection Today M25.512 - Pain in left shoulder, M54.2 - Cervicalgia, R26.9 - Unspecified abnormalities of gait and mobility, R51.9 - Headache, unspecified Medications: New cyclobenzaprine 10 mg PO QPM 30 tabs 5RF Coding Level of Care Code Est Pt Level 3 (96681) Diagnoses Occipital headache R51.9 Neck pain M54.2 Trigger point of left shoulder region M25.512 CPT Codes Nerve Block - CPT: 73646-Evpgzmf Occipital ([id number]) Therapeutic Injection - Ther Injection 1: 76178-Ftvwobv Point Injection 1 or 2 sites ([id number])
[2025-03-30 10:09] VITALS: BP 120/70; PULSE 82; RESP 17; O2SAT 100; BMI 20.1
--- OUTSIDE RECORDS SUMMARY | 2025-03-30 11:37 | XMS_ITS | Encounter Summary ---
Author Organization [facility] Address [address] [place] [address] [address] [place] [address] Phone Care Team Providers Care Director Biology Name Role Phone Chidi Torres MD Primary Care Provider [phone] Billy Roman MD Unavailable [phone] Zora Gallagher CNP Primary Care Provider [phone] Chidi Torres MD Unavailable [phone] Stefanie Dow MD Unavailable [phone] Zora Gallagher CNP Unavailable [phone] Encounter Details Date Type Department Care Team (Late st Contact Info) Description 08/16/2022 Procedure Pass [facility], [address] [address] Social History Tobacco Use Types Packs/Day Years [...] Care Team (Late st Contact Info) Description 04/27/2025 9:00 AM EST Office Visit [facility] [address] [place] [address] Zora Gallagher CNP [address] [facility] 7 [place] [address] 05/24/2025 10:00 AM EST Office Visit [facility] [address] [facility] 3rd Floor, [address] [place] [address] John Bean MD [address] [place] [address] jose documented as of this encounter Visit Diagnoses Not on filedocumented in this encounter Additional Health Concerns Assessment Noted Time PHQ-2 Depression Total Score: 0 02/29/20 9:50 AM EDT documented as of this encounter Care Teams Director Biology Relationship Specialty Start Date End Date Chidi Torres MD [address] [place] [address] 7 [place] [address] PCP - General 03/06/17 08/13/23 Zora Gallagher CNP [address] [facility] 7 [place] [address] PCP - General Nurse Practitioner 08/14/23 Billy Roman MD [address] [address] [email or web address] Cardiology 11/12/21 Chidi Torres MD [address] [facility], [address] [place] [address] Insurance Assigned Provider 08/25/21 08/23/23 Stefanie Dow MD [address] [facility], [address] [place] [address] [email or web address] Insurance Assigned Provider 08/23/23 08/22/24 Zora Gallagher CNP [address] [facility], [address] [place] [address] [email or web address] Insurance Assigned Provider 08/22/24 documented as of this encounter Additional Source Comments The information contained in this document represents components of the legal health record. It is not the complete legal health record.[facility]
--- OUTSIDE RECORDS SUMMARY | 2025-03-30 11:37 | XMS_ITS | Encounter Summary ---
Author Organization [facility] Address [address] [place] [address] Drive [address] [place] [address] Phone Care Team Providers Care First Coat Operator Name Role Phone Billy Roman MD Unavailable [phone] Zora Gallagher CNP Primary Care Provider Zora Gallagher CNP Unavailable [phone] Encounter Details Date Type Department Care Team (Latest Contact Info) Description 11/03/2024 Ancillary Orders [address] [address] Alyssa Helms MD [address] [place] [address] Orthopedics & Sports Medicine, [place], [place] [id number] [email or web address] Localized osteoarthritis of shoulder regions, bilateral [...] Description 04/27/2025 9:00 AM EST Office Visit [facility] [address] [place] [address] Zora Gallagher CNP 234 [facility] 7 [place] [address] 05/24/2025 10:00 AM EST Office Visit [facility] [address] [facility] 3rd Floor, [address] [place] [address] John Bean MD [address] [place] [address] Pending Results Name Type Priority Associated Diagnoses [...] documented as of this encounter Care Teams First Coat Operator Relationship Specialty Start Date End Date Zora Gallagher CNP [address] [facility] [address] [place] [address] PCP - General Nurse Practitioner 08/14/23 Billy Roman MD [address] [address] [email or web address] Cardiology 11/12/21 Zora Gallagher CNP [address] [place] [address], [address] [place] [address] [email or web address] Insurance Assigned Provider 08/22/24 documented as of this encounter Additional Source Comments The information contained in this document represents components of the legal health record. It is not the complete legal health record.[facility]
--- OUTSIDE RECORDS SUMMARY | 2025-03-30 11:38 | XMS_ITS | Encounter Summary ---
Author Organization [facility] Address [address] [place] [id number] Phone Care Team Providers Care Rib Bender Name Role Phone Chidi Torres MD Primary Care Provider Chidi Torres MD Unavailable [phone] Chidi Torres MD Unavailable Chidi Torres MD Unavailable [phone] Billy Roman MD Unavailable [phone] Zora Gallagher CNP Primary Care Provider Chidi Torres MD Unavailable [phone] Stefanie Dow MD Unavailable [phone] Zora Gallagher CNP Unavailable [phone] Encounter Details Date Type Department Care Team (Late st Contact Info) Description 05/08/2018 Procedure Pass [facility], [facility] - [address] [place] [address] Social History Tobacco Use Types Packs/Day Years [...] Description 04/27/2025 9:00 AM EST Office Visit [facility] [address] [place] [address] Zora Gallagher CNP 234 [facility], [address] [place] [address] 05/24/2025 10:00 AM EST Office Visit [facility] [address] [facility] 3rd Floor, [address] [place] [address] John Bean MD [address] [place] [address] documented as of this encounter Visit Diagnoses [...] 10/03/2021 10/14/2021 1:22 AM EDT CoV-Presumed 01/05/2022 01/05/202201/2601/26/2022 1:21 AM EDT Assessment Noted Time PHQ-2 Depression Total Score: 0 04/21/20 18 2:00 PM EST documented as of this encounter Care Teams Rib Bender Relationship Specialty Start Date End Date Chidi Torres MD [address] [place] [address], [facility] [address] [place] [address] [email or web address] PCP - General 03/06/17 08/13/23 Zora Gallagher CNP [address] [place] [address], [facility] [address] [place] [address] PCP - General Nurse Practitioner 08/14/23 Chidi Torres MD [address] [place] [address] [address] [place] [address] [email or web address] Insurance Assigned Provider 09/19/18 02/27/19 Chidi Torres MD [address] [place] [address], [facility] [address] [place] [address] [email or web address] Insurance Assigned Provider 03/25/20 07/22/20 Chidi Torres MD [address] [place] [address] 7 [place] [address] [email or web address] Insurance Assigned Provider 08/25/21 11/11/21 Billy Roman MD [address] [place] [address] [email or web address] Cardiology 11/12/21 Chidi Torres MD [address] [place] [address] [address] [place] [phone] Insurance Assigned Provider 08/25/21 08/23/23 Stefanie Dow MD [address] [place] [address], [address] [place] [id number] Insurance Assigned Provider 08/23/23 08/22/24 Zora Gallagher CNP [address] [place] [address], [address] [place] [id number] Insurance Assigned Provider 08/22/24 documented as of this encounter Additional Source Comments The information contained in this document represents components of the legal health record. It is not the complete legal health record.[facility]
--- OUTSIDE RECORDS SUMMARY | 2025-03-30 11:38 | XMS_ITS | Clinical Summary ---
Author Organization [facility] Address [address] [place] [address] [place] [address] Phone Care Team Providers Care Cafe Associate Name Role Phone Billy Roman MD Unavailable [phone] Zora Gallagher CNP Primary Care Provider Zora Gallagher CNP Unavailable [phone] Allergies No known active allergies Medications riboflavin, [...] mouth daily. 90 capsule 3 4 Active clonazePAM (KLONOPIN) 0.5 MG tabletIndications :Anxiety state TAKE ONE TABLET BY MOUTH EVERY DAY 90 tablet 5 Active triamcinolone acetonide 0.1 % creamIndications: Intrinsic eczema Apply topically as needed (Intrinsic eczema [L20.84]). 30 g 1 5 Active cyclobenzaprine (FLEXERIL) 10 MG tablet TAKE ONE TABLET BY MOUTH EVERY DAY AT SUPPER 5 Active clotrimazole-beta methasone (LOTRISONE) cream Apply topically 2 (two) times a day for 14 days. 30 g 5 03/08/20 25 Hospital, Clinic, or Other Facility Administered Medication Ordered Dose Route Frequency Start Date End Date Status lidocaine (XYLOCAINE) 1% injection 2 mLIndications:Rotator cuff arthropathy of left shoulder 2 mL IAtc Once 03/15/2025 03/15/2025 Ended BUPivacaine HCl (MARCAINE) 0.25% injection 2 mLIndications:Rotator cuff arthropathy of left shoulder 2 mL IAtc Once 03/15/2025 03/15/2025 Ended triamcinolone acetonide (KENALOG-40) 40 mg/mL injection 80 mgIndications:Rotator cuff arthropathy of left shoulder 80 mg IAtc Once 03/15/2025 03/15/2025 Ended iohexoL (OMNIPAQUE-240) 240 mg iodine/mL solution 5 mLIndications:Rotator cuff arthropathy of left shoulder 5 mL IAtc Once 03/15/2025 03/15/2025 Ended Active Problems Problem Noted Date Diagnosed Date [...] her SVT ablation that was done at [facility]. She was recommended for 6 weeks of anticoagulation with Xarelto and then to stop anticoagulation. She has had no recurrence of atrial fibrillation to date that we know if. Her AWQ4HX8-UXQv score is 2. Will continue off anticoagulation as we have been doing. Assessment & Plan (12/04/2023 10:45 AM EDT): Very brief episode of atrial fibrillation immediately following her SVT ablation that was done at [facility]. She was recommended for 6 weeks of anticoagulation with Xarelto and then to stop anticoagulation. She has had no recurrence of atrial fibrillation to date that we know if. Her YIW1TR2-INZh score is 2. Will continue off anticoagulation as we have been doing. Assessment & Plan (09/20/2021 9:15 AM EDT): Patient had a very brief episode of atrial fibrillation immediately after her SVT ablation that was done at [facility]. They had asked her to start Xarelto for 6 weeks and then stop. She has not had any further recurrences since. She has a PVY7CZ8- VASc of 2 given age and gender. I noted that the current guidelines say that at this risk or, anticoagulation or no anticoagulation options. She notes that she is being started on a migraine medication where anticoagulation of any type or aspirin is contraindicated. Given she has not had any further recurrences and her KUL1RI9- VASc is borderline, we will hold on anticoagulation for now Assessment & Plan (05/03/2021 9:33 AM EST): She has had brief episodes of atrial fibrillation immediately after and during the procedure. She is on Xarelto currently. She has a BZI9YR2-IFYv of 2 given age and gender based on the most recent guidelines does not have to be on anticoagulation given the threshold is now DHD5WV0-EJJe of 3 for women. She is on Xarelto that was started by [facility] for 6 weeks and can go back to aspirin afterwards Paroxysmal supraventricular tachycardia 06/15/19 21 Assessment & Plan (11/09/2024 10:37 AM EDT): [...] AM EDT): Her last EP study at [facility] described her arrhythmia is a [...] AM EDT): Her last EP study at [facility] described her arrhythmia is a [...] Dr. Dumont as well as one at [facility] with unfortunately still recurrences of SVT. She is back to taking diltiazem every day and is now currently taking flecainide 75 mg as needed. She was told at [facility] that it can take up [...] SVT ablation either done by myself or [facility] and I will leave it [...] [address] Dumont and 2 at [facility]. I recommended she restart flecainide 75 mg twice daily as well as the diltiazem 120 mg XL once daily as this was helpful for her in the past and could be helpful in combination with the ablation is performed at [facility]. I urged her to reach out to [facility] given that she just had [...] was unsuccessful. She was seen by her belt brander who recommended Tikosyn loading therefore she presented to [facility] on 03/[facility]. Patient appears to be tolerating the medication without difficulty. She did convert to normal sinus rhythm. Currently her heart rates are in the 60s. However this morning she was noted to have an elongated W[place] interval at 0.36 therefore metoprolol was discontinued. [...] Encounters Date Type Department Care Team Description 03/15/2025 8:00 AM EDT Procedure visit [facility] [address] [place] [address] Alyssa Helms MD Rotator cuff arthropathy of left shoulder (Primary Dx) 03/15/2025 7:03 AM EDT - 03/15/2025 11:59 PM EDT Hospital Encounter [address] [address] Alyssa Helms MD Discharge Disposition: Home or Self Care 03/11/2025 Ancillary Orders [address] [address] Alyssa Helms MD Osteoarthritis, localized, shoulder, left (Primary Dx) 03/09/2025 10:12 AM EDT - 03/09/2025 11:59 PM EDT Hospital Encounter [address] [address] Zora Gallagher CNP Discharge Disposition: Home or Self Care 03/07/2025 Orders Only [address] [address] Natasha Grajeda MD 03/04/2025 Orders Only [address] [address] Natasha Grajeda MD 03/03/2025 Telephone [facility] TEAM [address] [place], [place] [id number] Zora Gallagher CNP Care Coordination ([facility] Virtual AWV Outreach/) 02/22/2025 9:10 AM EDT Office Visit [facility] at [address] [address] Tess Sol, TIPPLE MECHANIC Tinea corporis (Primary Dx) 02/15/[address] [address] Erika Gaston [place] 02/09/[address] [address] Diamond Robbins CNP Medication Refill 02/04/2025 Orders Only [address] [address] ProviderNatasha MD 02/26/2024 Procedure Pass [address] [address] from Last 3 Months Immunizations Immunization Administration [...] uit: Not Asked; Counseling Given: Not Answered Comments:Pattie 05/22ppd Alcohol Use Standard Drinks/Week Comments Yes 0 [...] Description 04/27/2025 9:00 AM EST Office Visit [facility] [address] [place] [address] Zora Gallagher CNP 234 [facility], [address] [place] [address] 05/24/2025 10:00 AM EST Office Visit [facility] [address] [facility] 3rd Floor, [address] [place] [address] John Bean MD [address] [place] [address] Health Maintenance Due Date Last Done Comments COLOGUARD 1998 COLONOSCOPY 1998 COLORECTAL CANCER SCREENING 1998 FIT TEST 1998 FOBT 1998 SIGMOIDOSCOPY 1998 VIRTUAL COLONOSCOPY 1998 LUNG CANCER SCREENING (LDCT Only) 10/28/2003 DEPRESSION SCREENING 08/26/2024 08/27/2023 INFLUENZA VACCINE (#1) 2024 , 02/28/2022, 02/28/2022, Additional history exists COVID-19 VACCINE ( season) 2025 05/28/2021, 08/10/2020, 07/13/2020 MAMMOGRAM 03/09/2026 03/09/2025, 01/18, 11/13/2021, Additional history exists SMOKING Hx and SMOKELESS TOBACCO SCREENING 03/09/2026 03/09/2025 Adult Td,Tdap Booster 04/18/2027 04/18/2017, 006 LIPID [...] on patient's age to complete this topic IPV VACCINES Aged Out No longer eligi ble based on patient's age to complete this topic MENINGOCOCCAL VACCINES (ACWY) Aged Out No longer eligible based on patient's age to complete this topic MENINGOCOCCAL VACCINES (B) Aged Out N o longer eligible based on patient's age to complete this topic Medical Devices Not on file Procedures Procedure Name Priority Date/Time Associated Diagnosis Comments BI MAMMOGRAM SCREENING WITH TOMOSYNTHESIS WITH CAD (BILATERAL) Routine 03/09/2025 10:43 AM EDT Encounter for screening mammogram for malignant neoplasm of breast OUTSIDE MR IMAGING REPORT ONLY Routine 03/07/2025 10:53 AM EDT OUTSIDE MR IMAGING REPORT ONLY Routine 03/04/2025 11:43 AM EDT OUTSIDE LAB Routine 02/04/2025 9:32 AM EDT LIPID PANEL Routine 09/01/2023 10:38 AM EDT Screening for condition BD DXA AXIAL (SPINE) WITH HIP Routine 07/20/2020 8:32 AM EST Osteopenia, unspecified location HEPATITIS C ANTIBODY, QUALITATIVE Routine 06/29/2020 10:01 AM EST Screening for condition from Last 3 Months or Most Recently Relevant to Health Maintenance Results * BI MAMMOGRAM SCREENING WITH TOMOSYNTHESIS WITH CAD (BILATERAL) (03/09/2025 10:43 AM EDT) Anatomical Region Laterality Modality Breast Left, Breast Right, Breast Bilateral Bila teral Mammography 03/09/2025 5:20 PM EDT Impressions 03/10/2025 8:19 AM EDT No mammographic evidence of malignancy in either breast. Annual screening mammography is recommended. BI-RADS 2 BENIGN The patient will be notified of the results and recommendations. Narrative 03/10/2025 8:19 AM EDT BI MAMMOGRAM SCREENING WITH TOMOSYNTHESIS WITH CAD (BILATERAL) Additional patient information: Screening. COMPARISON: Comparison is made with relevant prior imaging. Breast composition: There are scattered areas of fibroglandular density. FINDINGS: No abnormal masses, suspicious calcifications, or other significant findings are identified mammographically in either breast. An asymmetry in the mid one third of the outer left breast on CC view only is stable from 11/05/2021 and consistent with superimposed benign fibroglandular tissue. Procedure Note Bi Zaragoza MD - 03/10/2025 BI MAMMOGRAM SCREENING WITH TOMOSYNTHESIS WITH CAD (BILATERAL) Additional patient information: Screening. COMPARISON: Comparison is made with relevant prior imaging. Breast composition: There are scattered areas of fibroglandular density. FINDINGS: No abnormal masses, suspicious calcifications, or other significantfindings are identified mammographically in either breast. An asymmetry inthe mid one third of the outer left breast on CC view only is stable from11/05/2021 and consistent with superimposed benign fibroglandular tissue. IMPRESSION: No mammographic evidence of malignancy in either breast. Annual screening mammography is recommended. BI-RADS 2 BENIGN The patient will be notified of the results and recommendations. us Zora WEEMSG MG EXAMS Final Result * Outside MR Imaging Report Only (03/07/2025 10:53 AM EDT) us Historical Provider MD GASPAR MR Final Res ult * Outside MR Imaging Report Only (03/04/2025 11:43 AM EDT) Historical Provider MD GASPAR MR Final Res ult * Outside Lab (02/04/2025 9:32 AM EDT) us Historical Provider LAB BLOOD BKR ORDERABLES Final Result * (ABNORMAL) Lipid panel (09/01/2023 10:38 AM EDT) HDL 77 mg/dL [facility] Comment: Interpretation <40 mg/dL: Low HDL cholesterol (major risk factor for CHD) Greater than or equal to 60 mg/dL: High HDL cholesterol ( negative risk factor for CHD) HDL - cholesterol is affected by a number of factors, e.g. smoking, excerise, hormones, sex and age. CHOLESTEROL 239 0 - 240 mg/dL [facility] TRIGLYCERIDES 83 30 - 160 mg/dL [facility] LDL 145(H) 50 - 129 mg/dL [facility] Comment: LDL levels in terms of risk for coronary heart disease: <100 mg/dL: Optimal 100-129 mg/dL: Near or above optimal 130-159 mg/dL: Borderline high 160-189 mg/dL: High >190 mg/dL: Very High CARDIAC RISK RATIO 3.1(L) 3.3 - 4.4 C [facility] Blood 09/01/2023 10:3 8 AM EDT 09/01/2023 10:41 AM EDT Zora Gallagher CNP LAB BLOOD BKR ORDERABLES Fin al Result [facility] [address] [place], [place] [id number] * BD DXA AXIAL (SPINE) WITH HIP [...] bone mineral density was calculated at 0.706 gm/ul2qngz a T-score of -1.3. Total bone mineral [...] AM EST) HCV NON-REACTIV E NON-REACTI VE [facility] Blood 06/29/2020 10:0 1 AM EST 06/29/2020 10:03 AM EST us Chidi Torres MD LAB BLOOD BKR ORDERABLES Glenna l Result [address] [address] from Last 3 Months or Most Recently Relevant to Health Maintenance Insurance [place] [employer] MEDEX SUPPLEMENT MEDICARE PART A & B [employer] MEDEX SUPPLEMENT MEDICARE PART A & B [employer] MEDEX SUPPLEMENT MEDICARE PART A & B [employer] MEDEX SUPPLEMENT MEDICARE PART A & B [employer] MEDEX SUPPLEMENT MEDICARE PART A & B [employer] MEDEX SUPPLEMENT MEDICARE PART A & B [employer] MEDEX SUPPLEMENT MEDICARE PART A & B [employer] MEDEX SUPPLEMENT MEDICARE PART A & B [facility] MEDEX SUPPLEMENT MEDICARE PART A & B Advance Directives For more information, please contact: [phone] (9AM - 5PM [facility], Friday-Friday) Documents on File Type Date Recorded Patient Supplier Quality Specialist Expl anation Healthcare Proxy 04/01/2019 12:14 PM [...] Code Status Confirmed With: Patient Care Teams Cafe Associate Relationship Specialty Start Date End Date Zora Gallagher CNP [address] [facility], [facility] [address] [place] [address] [email or web address] PCP - General Nurse Practitioner 08/14/23 Billy Roman MD 3 [place] [address] [email or web address] Cardiology 11/12/21 Zora Gallagher CNP [address] [place] [address] [address] [place] [address] [email or web address] Insurance Assigned Provider 08/22/24 Additional Source Comments The information contained in this document represents components of the legal health record. It is not the complete legal health record.[facility]
--- OUTSIDE RECORDS SUMMARY | 2025-03-30 11:38 | XMS_ITS | Encounter Summary ---
Author Organization [facility] Address [address] [place] [address] Phone Care Team Providers Care Air Pollution Analyst Name Role Phone hCidi Torres MD Primary Care Provider Chidi Torres MD Unavailable Chidi Torres MD Unavailable [phone] Billy Roman MD Unavailable [phone] Zora Gallagher CNP Primary Care Provider Chidi Torres MD Unavailable Stefanie Dow MD Unavailable [phone] Zora Gallagher CNP Unavailable Reason for Referral * Physical Therapy (Elective) - Closed Specialty Diagnoses / Procedures Referred By Monica scott Referred To Contact Physical Therapy Diagnoses Encounter for rehabilitation Both Legs balance /trunk control Procedures Evaluate & Treat Jessie Green MD Phone: tel: fax: [address] [address] Phone: tel: Referral ID Status Reason Start Date Expiration Date Visits Re quested Visits Authorized [id number] Closed 06/15/2019 05/18/2020 18 18 Encounter Details Date Type Department Care Team (Latest Contact Info) Description 06/03/2019 Transcribe Orders [facility] [address] [place] [address] Jessie Green MD [address] [facility] [address] [place] [address] Encounter for rehabilitation (Primary Dx) Social History [...] Description 04/27/2025 9:00 AM EST Office Visit [facility] [address] [place] [address] Zora Gallagher CNP 234 [facility] 7 [place] [address] 05/24/2025 10:00 AM EST Office Visit [facility] [address] [facility] 3rd Floor, [address] [place] [address] John Bean MD 50 [place] [address] jose documented as of this encounter Procedures Procedure Name Priority Date/Time Associated Diagnosis Comments AMB REFERRAL TO [facility] PHYSICAL THERAPY Routine 06/15/2019 9:08 AM EST Encounter for rehabilitation documented in this encounter Results * Ambulatory referral to [facility] Physical Therapy (06/15/2019 9:08 AM EST) us Jessie BHATTI [facility] REFERRALS Final Result documented in this encounter [...] documented as of this encounter Care Teams Air Pollution Analyst Relationship Specialty Start Date End Date Chidi Torres MD [address] [place], [place] [address] [place] [address] [email or web address] PCP - General 03/06/17 08/13/23 Zora Gallagher CNP [address] [place] [address] [place] [address] [email or web address] PCP - General Nurse Practitioner 08/14/23 Chidi Torres MD [address] [place] [address] [address] [place] [address] [email or web address] Insurance Assigned Provider 03/25/20 07/22/20 Chidi Torres MD [address] [place], [place] [address] [place] [address] Insurance Assigned Provider 08/25/21 11/11/21 Billy Roman MD [address] [address] [email or web address] Cardiology 11/12/21 Chidi Torres MD [address] [place] [address], [address] [place] [address] Insurance Assigned Provider 08/25/21 08/23/23 Stefanie Dow MD [address] [place] [address], [address] [place] [address] Insurance Assigned Provider 08/23/23 08/22/24 Zora Gallagher CNP [address] [place] [address], [address] [place] [address] [email or web address] Insurance Assigned Provider 08/22/24 documented as of this encounter Additional Source Comments The information contained in this document represents components of the legal health record. It is not the complete legal health record.[facility]
--- OUTSIDE RECORDS SUMMARY | 2025-03-30 11:38 | XMS_ITS | Encounter Summary ---
Author Organization [facility] Address [address] [place] [address] [place] [address] Phone Care Team Providers Care Automotive Painter Helper Name Role Phone Chidi Torres MD Primary Care Provider [phone] Chidi Torres MD Unavailable Billy Roman MD Unavailable [phone] Zora Gallagher DETACKER Primary Care Provider Chidi Torres MD Unavailable [phone] Stefanie Dow MD Unavailable [phone] Zora Gallagher DETACKER Unavailable [phone] Encounter Details Date Type Department Care Team (Late st Contact Info) Description 12/04/2020 Procedure Pass [facility] Electrophysiology Lab [address] [place] [address] Social History Tobacco Use Types Packs/Day Years [...] Description 04/27/2025 9:00 AM EST Office Visit [facility] [address] [place] [address] Zora Gallagher CNP 234 [facility] 7 [place] [address] 05/24/2025 10:00 AM EST Office Visit [facility] 3[facility], [address] [place] [address] John Bean MD 50 [place] [address] jose documented as of this encounter Visit [...] documented as of this encounter Care Teams Automotive Painter Helper Relationship Specialty Start Date End Date Chidi Torres MD 234 [facility], [facility] 7 [place] [address] PCP - General 03/06/17 08/13/23 Zora Gallagher CNP [address] [place] [address] [address] [place] [address] PCP - General Nurse Practitioner 08/14/23 Chidi Torres MD [address] [place] [address], [address] [place] [address] Insurance Assigned Provider 08/25/21 11/11/21 Billy Roman MD [address] [place] [address] [email or web address] Cardiology 11/12/21 Chidi Torres MD [address] [place] [address] [address] [place] [address] Insurance Assigned Provider 08/25/21 08/23/23 Stefanie Dow MD [address] [place] [address] [address] [place] [address] Insurance Assigned Provider 08/23/23 08/22/24 Zora Gallagher CNP [address] [place] [address] [address] [place] [address] Insurance Assigned Provider 08/22/24 documented as of this encounter Additional Source Comments The information contained in this document represents components of the legal health record. It is not the complete legal health record.[facility]
--- OUTSIDE RECORDS SUMMARY | 2025-03-30 11:38 | XMS_ITS | Encounter Summary ---
Author Organization [facility] Address [address] [place] [address] [place] [address] Phone Care Team Providers Care Meal Room Hand Name Role Phone Chidi Torres MD Primary Care Provider Chidi Torres MD Unavailable [phone] Billy Roman MD Unavailable Zora Gallagher SAFE AND VAULT INSTALLER Primary Care Provider Chidi Torres MD Unavailable Stefanie Dow MD Unavailable Zora Gallagher CNP Unavailable Encounter Details Date Type Department Care Team (Late st Contact Info) Description 11/01/2021 Procedure Pass [facility] [address] [place] [address] Social History Tobacco Use Types Packs/Day Years [...] Description 04/27/2025 9:00 AM EST Office Visit [facility] [address] [place] [address] Zora Gallagher CNP 234 [facility] 7 [place] [address] 05/24/2025 10:00 AM EST Office Visit [facility] [address] [place] [address] 3rd Floor, [address] [place] [address] John Bean MD 50 [place] [address] documented as of this encounter Visit Diagnoses Not on filedocumented in this encounter Additional Health Concerns Infection Onset Date Last Indicated Resolved Time CoV-Presumed 01/05/2022 01/05/2022 01/26/2022 1:21 AM EDT Assessment Noted Time PHQ-2 Depression Total Score: 0 11/24/19 9:14 AM EDT documented as of this encounter Care Teams Meal Room Hand Relationship Specialty Start Date End Date Chidi Torres MD [address] [place] [address] PCP - General 03/06/17 08/13/23 Zora Gallagher CNP [address] [facility] 7 [place] [address] PCP - General Nurse Practitioner 08/14/23 Chidi Torres MD [address] [place] [address] 7 [place] [address] Insurance Assigned Provider 08/25/21 11/11/21 Billy Roman MD [address] [address] [email or web address] Cardiology 11/12/21 Chidi Torres MD [address] [place] [address], [address] [place] [address] [address] Insurance Assigned Provider 08/25/21 08/23/23 Stefanie Dow MD [address] [place] [address], [address] [address] [place] [address] Insurance Assigned Provider 08/23/23 08/22/24 Zora Gallagher CNP [address] [place] [address], [address] [address] [address] Insurance Assigned Provider 08/22/24 documented as of this encounter Additional Source Comments The information contained in this document represents components of the legal health record. It is not the complete legal health record.[facility]
--- OUTSIDE RECORDS SUMMARY | 2025-03-30 11:38 | XMS_ITS | Encounter Summary ---
Author Organization [facility] Address [address] [place] [address] [address] [place] [address] Phone Care Team Providers Care Wash Oil Pump Operator Helper Name Role Phone Chidi Torres MD Primary Care Provider Chidi Torres MD Unavailable Chidi Torres MD Unavailable Billy Roman MD Unavailable Zora Gallagher CNP Primary Care Provider Chidi Torres MD Unavailable Stefanie Dow MD Unavailable Zora Gallagher TAIL PULLER Unavailable Reason for Referral * MRI/CAT Scan - Closed Specialty Diagnoses / Procedures Referred By Monica scott Referred To Contact Radiology Diagnoses Neck pain Procedures MRI Cervical Spine Jessie Green MD Phone: tel: fax: Referral ID Status Reason Start Date Expiration Date Visits Re quested Visits Authorized [id number] Closed 05/23/2020 05/23/2021 1 1 Encounter Details Date Type Department Care Team (Latest Contact Info) Description 05/23/2020 Transcribe Orders [facility] Department 30 [place] [address] Jessie Green MD 299 [facility] [address] [place] [address] Neck pain (Primary Dx) Social History Tobacco [...] Description 04/27/2025 9:00 AM EST Office Visit [facility] 234 [place] [address] Zora Gallagher CNP 234 [facility] [address] [place] [address] 05/24/2025 10:00 AM EST Office Visit [facility], [address] [place] [address] John Bean MD 50 [place] [address] jose documented as of this encounter Results * [...] documented as of this encounter Care Teams Wash Oil Pump Operator Helper Relationship Specialty Start Date End Date Chidi Torres MD [address] [place] [address] 7 [place] [address] [email or web address] PCP - General 03/06/17 08/13/23 Zora Gallagher CNP [address] [place] [address] 7 [place] [address] [email or web address] PCP - General Nurse Practitioner 08/14/23 Chidi Torres MD [address] [place] [address] 7 [place] [address] [email or web address] Insurance Assigned Provider 03/25/20 07/22/20 Chidi Torres MD [address] [place] [address] 7 [place] [address] [email or web address] Insurance Assigned Provider 08/25/21 11/11/21 Billy Roman MD [address] [place] [email or web address] Cardiology 11/12/21 Chidi Torres MD [address] [place] [address] 7 [place] [phone] Insurance Assigned Provider 08/25/21 08/23/23 Stefanie Dow MD [address] [place] [address], [address] [place] [phone] Insurance Assigned Provider 08/23/23 08/22/24 Zora Gallagher CNP [address] [place] [address], [address] [place] [phone] Insurance Assigned Provider 08/22/24 documented as of this encounter Additional Source Comments The information contained in this document represents components of the legal health record. It is not the complete legal health record.[facility]
--- OUTSIDE RECORDS SUMMARY | 2025-03-30 11:38 | XMS_ITS | Encounter Summary ---
Author Organization [facility] Address [address] [place] [address] [address] [place] [address] Phone Care Team Providers Care Sugar Sampler Name Role Phone Chidi Torres MD Primary Care Provider Chidi Torres MD Unavailable [phone] Chidi Torres MD Unavailable Chidi Torres MD Unavailable Billy Roman MD Unavailable oZra Gallagher CNP Primary Care Provider [phone] Chidi Torres MD Unavailable Stefanie Dow MD Unavailable Zora Gallagher CNP Unavailable Encounter Details Date Type Department Care Team (Late st Contact Info) Description 01/15/2019 Ancillary Orders [facility] Medicine 234 [place], [place] [id number] Chidi Torres MD 234 [facility], [address] [place], [place] [id number] [email or web address] Social History Tobacco Use Types Packs/Day Years [...] Description 04/27/2025 9:00 AM EST Office Visit [facility] 234 [place] [address] Zora Gallagher CNP 234 [facility], [address] [place] [address] 05/24/2025 10:00 AM EST Office Visit [facility] 22 [facility] 3rd Floor, [address] [place] [address] John Bean MD 50 [place] [address] documented as of this encounter Visit Diagnoses [...] documented as of this encounter Care Teams Sugar Sampler Relationship Specialty Start Date End Date Chidi Torres MD [address] [place] [address] 7 [place] [address] [email or web address] PCP - General 03/06/17 08/13/23 Aileen ZoraMU [address] [place] [address], [facility] 7 [place] [address] [email or web address] PCP - General Nurse Practitioner 08/14/23 Chidi Torres MD [address] [place] [address] 7 [place] [address] [email or web address] Insurance Assigned Provider 09/19/18 02/27/19 Chidi Torres MD [address] [place] [address] 7 [place] [address] [email or web address] Insurance Assigned Provider 03/25/20 07/22/20 Chidi Torrse MD [address] [place] [address] 7 [place] [address] [email or web address] Insurance Assigned Provider 08/25/21 11/11/21 Billy Roman MD [address] [address] [email or web address] Cardiology 11/12/21 Chidi Torres MD [address] [place] [address] 7 [place] [address] [email or web address] Insurance Assigned Provider 08/25/21 08/23/23 Stefanie Dow MD 234 [facility], [address] [place] [address] [email or web address] Insurance Assigned Provider 08/23/23 08/22/24 Zora Gallagher CNP 234 [facility], [address] [place] [address] [email or web address] Insurance Assigned Provider 08/22/24 documented as of this encounter Additional Source Comments The information contained in this document represents components of the legal health record. It is not the complete legal health record.[facility]
--- OUTSIDE RECORDS SUMMARY | 2025-03-30 11:38 | XMS_ITS | Encounter Summary ---
Author Organization [facility] Address [address] [place] [address] Phone Care Team Providers Care Console Operator Name Role Phone Chidi Torres MD Primary Care Provider Chidi Torres MD Unavailable Chidi Torres MD Unavailable Chidi Torres MD Unavailable [phone] Billy Roman MD Unavailable Zora Gallagher CNP Primary Care Provider Chidi Torres MD Unavailable Stefanie Dow MD Unavailable [phone] Zora Gallagher CNP Unavailable Encounter Details Date Type Department Care Team (Latest Contact Info) Description 11/03/2018 Transcribe Orders [facility] [address] [place] [address] Des Boyce MD 69 [facility], [address] [place], [place] [id number] [email or web address] Dry mouth (Primary Dx) Social History [...] Description 04/27/2025 9:00 AM EST Office Visit [facility] 234 [place] [address] Zora Gallagher, MU 234 [facility], [address] [place] [address] 05/24/2025 10:00 AM EST Office Visit [facility] [address] 3rd Floor, [address] [place] [address] John Bean MD 50 [place] [address] documented as of this encounter Results * SS-A/SS-B antibodies (11/03/2018 2:13 PM EDT) SS-A/RO IGG <0.2 <1.0 (Negative) [facility] SS-B/LA IGG <0.2 <1.0 (Negative) U [facility] MED/PATH SUPERIOR Blood 11/03/2018 2:13 PM EDT 11/03/2018 2:14 PM EDT us Des Boyce MD LAB BLOOD ORDERABLES Final R esult [facility] SU[facility]IOR [address] [place] [address] documented in this encounter Visit Diagnoses Diagnosis [...] documented as of this encounter Care Teams Console Operator Relationship Specialty Start Date End Date Chidi Torres MD [address] [place] [address] [email or web address] PCP - General 03/06/17 08/13/23 Zora Gallagher CNP [address] [place] [address] [email or web address] PCP - General Nurse Practitioner 08/14/23 Chidi Torres MD [address] [place] [address] [email or web address] Insurance Assigned Provider 09/19/18 02/27/19 Chidi Torres MD [address] [place] [address] [email or web address] Insurance Assigned Provider 03/25/20 07/22/20 Chidi Torres MD [address] [place] [address], [address] [place] [phone] Insurance Assigned Provider 08/25/21 11/11/21 Billy Roman MD [address] [address] [email or web address] Cardiology 11/12/21 Chidi Torres MD [address] [place] [address], [address] [place] [phone] Insurance Assigned Provider 08/25/21 08/23/23 Stefanie Dow MD [address] [place] [address], [address] [place] [phone] Insurance Assigned Provider 08/23/23 08/22/24 Zora Gallagher CNP [address] [place] [address], [address] [place] [phone] Insurance Assigned Provider 08/22/24 documented as of this encounter Additional Source Comments The information contained in this document represents components of the legal health record. It is not the complete legal health record.[facility]
--- OUTSIDE RECORDS SUMMARY | 2025-03-30 11:38 | XMS_ITS | Encounter Summary ---
Author Organization [facility] Address [address] [place] [address] [place] [address] Phone Care Team Providers Care Automotive Teacher Name Role Phone Chidi Torres MD Primary Care Provider Chidi Torres MD Unavailable Billy Roman MD Unavailable [phone] Zora Gallagher DEATH CLAIM CLERK Primary Care Provider Chidi Torres MD Unavailable [phone] Stefanie Dow MD Unavailable Zora Gallagher DEATH CLAIM CLERK Unavailable Encounter Details Date Type Department Care Team (Late st Contact Info) Description 12/19/2020 Procedure Pass [facility] Electrophysiology Lab [address] [place] [address] Social History Tobacco Use Types Packs/Day Years [...] Description 04/27/2025 9:00 AM EST Office Visit [facility] 234 [place] [address] Zora Gallagher CNP 234 [facility] 7 [place] [address] 05/24/2025 10:00 AM EST Office Visit [facility], [address] [place] [address] John Bean MD 50 [place] [address] jose documented as of this encounter Visit [...] as of this encounter Care Teams Automotive Teacher Relationship Specialty Start Date End Date Chidi Torres MD 234 [facility] 7 [place] [address] PCP - General 03/06/17 08/13/23 Zora Gallagher CNP [address] [place] [address] 7 [place] [address] PCP - General Nurse Practitioner 08/14/23 Chidi Torres MD [address] [place] [address], [address] [place] [phone] Insurance Assigned Provider 08/25/21 11/11/21 Billy Roman MD [address] [place] [address] [email or web address] Cardiology 11/12/21 Chidi Torres MD [address] [place] [address] 7 [place] [phone] Insurance Assigned Provider 08/25/21 08/23/23 Stefanie Dow MD [address] [place] [address] 7 [place] [phone] Insurance Assigned Provider 08/23/23 08/22/24 Zora Gallagher CNP [address] [place] [address] 7 [place] [phone] Insurance Assigned Provider 08/22/24 documented as of this encounter Additional Source Comments The information contained in this document represents components of the legal health record. It is not the complete legal health record.[facility]
--- OUTSIDE RECORDS SUMMARY | 2025-03-30 11:38 | XMS_ITS | Encounter Summary ---
Author Organization [facility] Address [address] [place] [address] [address] [place] [address] Phone Care Team Providers Care Information Technology Director Name Role Phone Chidi Torres MD Primary Care Provider Chidi Torres MD Unavailable [phone] Chidi Torres MD Unavailable Chidi Torres MD Unavailable Billy Roman MD Unavailable Zora Gallagher CNP Primary Care Provider Chidi Torres MD Unavailable Stefanie Dow MD Unavailable Zora Gallagher CNP Unavailable Encounter Details Date Type Department Care Team (Late st Contact Info) Description 05/21/2018 Ancillary Orders [facility] Medical [facility] Medicine 234 [place], [place] [phone] Chidi Torres MD 234 [facility], [address] [place], [place] [address] [email or web address] Abnormal mammogram Social History Tobacco Use Types [...] Description 04/27/2025 9:00 AM EST Office Visit [facility] 234 [place] [address] Aileen Zora, MU 234 [facility], [address] [place] [address] 05/24/2025 10:00 AM EST Office Visit [facility] 22 [facility] 3rd Floor, [address] [place] [address] John Bean MD 50 [place] [address] documented as of this encounter Results * BI US BREAST LIMITED (RIGHT) (06/12/2018 3:35 PM EST) Anatomical Region Laterality Modality Breast Right, Breast Bilateral Right U ltrasound 06/12/2018 3:31 PM EST Narrative 06/12/2018 3:42 PM EST Refer to the mammogram report. POS - [id number] Procedure Note Rekha Nugent MD - 06/12/2018 Refer to the mammogram report. POS - [id number] Chidi Torres MD IM US BREAST Final Result * BI MAMMOGRAM [...] There are scattered fibroglandular densities. POS - [id number] Narrative 06/12/2018 3:30 PM EST 62-year-old female [...] There are scattered fibroglandular densities. POS - [id number] Chidi Torres MD IMG MG EXAMS Edited [...] documented as of this encounter Care Teams Information Technology Director Relationship Specialty Start Date End Date Chidi Torres MD [address] [place] [address], [address] [place] [address] [email or web address] PCP - General 03/06/17 08/13/23 Zora Gallagher CNP [address] [place] [address], [facility] 7 [place] [address] PCP - General Nurse Practitioner 08/14/23 Chidi Torres MD [address] [place] [address], [facility] 7 [place] [address] [email or web address] Insurance Assigned Provider 09/19/18 02/27/19 Chidi Torres MD [address] [place] [address], [facility] 7 [place] [address] [email or web address] Insurance Assigned Provider 03/25/20 07/22/20 Chidi Torres MD [address] [place] [address], [facility] 7 [place] [address] [email or web address] Insurance Assigned Provider 08/25/21 11/11/21 Billy Roman MD [address] [place] [address] [email or web address] Cardiology 11/12/21 Chidi Torres MD [address] [place] [address], [facility] 7 [place] [address] [email or web address] Insurance Assigned Provider 08/25/21 08/23/23 Stefanie Dow MD [address] [place] [address], [facility] 7 [place] [phone] Insurance Assigned Provider 08/23/23 08/22/24 Zora Gallagher CNP [address] [place] [address] 7 [place] [address] [email or web address] Insurance Assigned Provider 08/22/24 documented as of this encounter Additional Source Comments The information contained in this document represents components of the legal health record. It is not the complete legal health record.[facility]
--- OUTSIDE RECORDS SUMMARY | 2025-03-30 11:38 | XMS_ITS | Encounter Summary ---
Author Organization [facility] Address [address] [place] [address] [place] [address] Phone Care Team Providers Care Lockstitcher Name Role Phone Chidi Torres MD Primary Care Provider [phone] Chidi Torres MD Unavailable [phone] Billy Roman MD Unavailable [phone] Zora Gallagher CNP Primary Care Provider Chidi Torres MD Unavailable Stefanie Dow MD Unavailable Zora Gallagher CNP Unavailable Encounter Details Date Type Department Care Team (Late st Contact Info) Description 04/03/2021 Telephone [facility] Electrophysiology Lab [address] [place] [phone] Elina Templeton, RN [address] [place] [phone] [email or web address] Social History Tobacco Use Types Packs/Day [...] Description 04/27/2025 9:00 AM EST Office Visit [facility] 234 [place] [address] Zora Gallagher, MU 234 [facility], [address] [place] [address] [email or web address] 05/24/2025 10:00 AM EST Office Visit [facility], [address] [place] [address] John Bean MD 50 [place] [address] documented as of this encounter Results * COVID-19 PCR Order (04/13/2021 10:09 AM EST) COVID-19 Comment [id number] [facility] COVID Testing Status In-house testing being performed [facility] Other 04/13/2021 10:0 9 AM EST 04/13/2021 11:23 AM EST us Ariana Kenney MD, MS LAB GENERAL ORDERABLES Glenna l Result [facility] 30 [place] [address] documented in this encounter Visit Diagnoses Diagnosis [...] documented as of this encounter Care Teams Lockstitcher Relationship Specialty Start Date End Date Chidi Torres MD [address] [place] [address], [facility] 7 [place] [address] [email or web address] PCP - General 03/06/17 08/13/23 Zora Gallagher CNP [address] [place] [address] 7 [place] [address] PCP - General Nurse Practitioner 08/14/23 Chidi Torres MD [address] [place] [address] 7 [place], [place] [address] Insurance Assigned Provider 08/25/21 11/11/21 Billy Roman MD [address] [place] [address] [email or web address] Cardiology 11/12/21 Chidi Torres MD [address] [place] [address] 7 [place] [address] [email or web address] Insurance Assigned Provider 08/25/21 08/23/23 Stefanie Dow MD [address] [place] [address], [facility] 7 [place], [place] [address] [email or web address] Insurance Assigned Provider 08/23/23 08/22/24 Zora Gallagher CNP [address] [place] [address] 7 [place], [place] [address] [email or web address] Insurance Assigned Provider 08/22/24 documented as of this encounter Additional Source Comments The information contained in this document represents components of the legal health record. It is not the complete legal health record.[facility]
--- OUTSIDE RECORDS SUMMARY | 2025-03-30 11:39 | XMS_ITS | Encounter Summary ---
Author Organization [facility] Address [address] [place] [address] [address] [place] [address] Phone Care Team Providers Care Sales Assistant Institutional Sales Name Role Phone Chidi Torres MD Primary Care Provider [phone] Chidi Torres MD Unavailable Billy Roman MD Unavailable Zora Gallagher CNP Primary Care Provider [phone] Chidi Torres MD Unavailable [phone] Stefanie Dow MD Unavailable Zora Gallagher CNP Unavailable [phone] Encounter Details Date Type Department Care Team (Late st Contact Info) Description 08/10/2021 Transcribe [facility] 22 [facility] 3rd Floor, [address] [place] [address] Lucinda Rodríguez, CRYPTOLOGIC SUPERVISOR 75 [facility] [address] [place] [address] [email or web address] Social History Tobacco Use Types [...] Description 04/27/2025 9:00 AM EST Office Visit [facility] 234 [place] [address] Zora Gallagher CNP 234 [facility] 7 [place] [address] 05/24/2025 10:00 AM EST Office Visit [facility] 22 [facility] 3rd Floor, [address] [place] [address] John Bean MD 50 [place] [address] documented as of this encounter Visit Diagnoses Not on filedocumented in this encounter Additional Health Concerns Infection Onset Date Last Indicated Resolved Time CoV-Risk 10/03/2021 10/03/2021 10/14/2021 1:22 AM EDT CoV-Presumed 01/05/2022 01/05/2022 01/26/2022 1:21 AM EDT Assessment Noted Time PHQ-2 Depression Total Score: 0 11/24/19 21 9:14 AM EDT documented as of this encounter Care Teams Sales Assistant Institutional Sales Relationship Specialty Start Date End Date Chidi Torres MD [address] [place] [address] 7 [place] [address] PCP - General 03/06/17 08/13/23 Zora Gallagher CNP [address] [place] [address] 7 [place] [address] PCP - General Nurse Practitioner 08/14/23 Chidi Torres MD [address] [place] [address], [address] [place] [phone] Insurance Assigned Provider 08/25/21 11/11/21 Billy Roman MD [address] [address] [email or web address] Cardiology 11/12/21 Chidi Torres MD [address] [place] [address], [address] [place] [address] Insurance Assigned Provider 08/25/21 08/23/23 Stefanie Dow MD [address] [place] [address], [address] [place] [address] Insurance Assigned Provider 08/23/23 08/22/24 Zora Gallagher CNP [address] [place] [address], [address] [place] [address] Insurance Assigned Provider 08/22/24 documented as of this encounter Additional Source Comments The information contained in this document represents components of the legal health record. It is not the complete legal health record.[facility]
--- OUTSIDE RECORDS SUMMARY | 2025-03-30 11:39 | XMS_ITS | Encounter Summary ---
Author Organization [facility] Address [address] [place] [address] [place] [address] Phone Care Team Providers Care Airport Duty Manager Name Role Phone Chidi Torres MD Primary Care Provider Chidi Torres MD Unavailable [phone] Billy Roman MD Unavailable [phone] Zora Gallagher DIESEL MECHANIC Primary Care Provider Chidi Torres MD Unavailable Stefanie Dow MD Unavailable [phone] Zora Gallagher DIESEL MECHANIC Unavailable [phone] Encounter Details Date Type Department Care Team (Late st Contact Info) Description 03/21/2021 Procedure Pass [facility] Electrophysiology Lab [address] [place] [address] Social History Tobacco Use Types Packs/Day Years [...] Description 04/27/2025 9:00 AM EST Office Visit [facility] 234 [place] [address] Zora Gallagher CNP 234 [facility] 7 [place] [address] 05/24/2025 10:00 AM EST Office Visit [facility] [address] [facility] 3rd Floor, [address] [place] [address] John Bean MD 50 [place] [address] jose documented as of this encounter Visit [...] documented as of this encounter Care Teams Airport Duty Manager Relationship Specialty Start Date End Date Chidi Torres MD [address] [place] [address] 7 [place] [address] PCP - General 03/06/17 08/13/23 Zora Gallagher CNP [address] [place] [address] 7 [place] [address] PCP - General Nurse Practitioner 08/14/23 Chidi Torres MD [address] [place] [address] 7 [place] [address] Insurance Assigned Provider 08/25/21 11/11/21 Billy Roman MD [address] [address] [email or web address] Cardiology 11/12/21 Chidi Torres MD [address] [place] [address], [address] [place] [address] Insurance Assigned Provider 08/25/21 08/23/23 Stefanie Dow MD [address] [place] [address], [address] [place] [address] Insurance Assigned Provider 08/23/23 08/22/24 Zora Gallagher CNP [address] [place] [address], [address] [place] [address] [email or web address] Insurance Assigned Provider 08/22/24 documented as of this encounter Additional Source Comments The information contained in this document represents components of the legal health record. It is not the complete legal health record.[facility]
--- OUTSIDE RECORDS SUMMARY | 2025-03-30 11:39 | XMS_ITS | Encounter Summary ---
Author Organization [facility] Address [address] [facility] [address] [place] [address] Phone Care Team Providers Care Ultrasonic Solderer Name Role Phone Billy Roman MD Unavailable [phone] Zora Gallagher CNP Primary Care Provider [phone] Zora Gallagher CNP Unavailable Reason for Referral * MRI/CAT Scan - Closed Specialty Diagnoses / Procedures Referred By Monica scott Referred To Contact Radiology Procedures Outside MR Imaging Report Only [facility] [address] [place] [address] Phone: tel: fax: Referral ID Status Reason Start Date Expiration Date Visits Re quested Visits Authorized [id number] Closed 03/07/2025 1 1 Encounter Details Date Type Department Care Team (Late st Contact Info) Description 03/07/2025 Orders Only [facility] [address] [place] [address] Natasha Grajeda MD [address] [place] [address] Social History Tobacco Use Types Packs/Day Years Used Date Smoking Tobacco: Every Day Cigarettes 0.5 40 Smokeless Tobacco: Never Comments:Currenlty 1/4ppd Alcohol Use Standard Drinks/Week Comments [...] Description 04/27/2025 9:00 AM EST Office Visit [facility] [address] [place] [address] Zora Gallagher CNP 234 [facility] [address] [place] [address] 05/24/2025 10:00 AM EST Office Visit [facility] [address] [facility] 3rd Floor, [address] [place] [address] John Bean MD 50 [place] [address] documented as of this encounter Procedures Procedure Name Priority Date/Time Associated Diagnosis Comments OUTSIDE MR IMAGING REPORT ONLY Routine 03/07/2025 10:53 AM EDT documented in this encounter Results * Outside MR Imaging Report Only (03/07/2025 10:53 AM EDT) us Historical Provider MD GASPAR MR Final Res ult documented in this encounter Visit Diagnoses Not on filedocumented in this encounter Additional Health Concerns Assessment Noted Time PHQ-2 Depression Total Score: 0 08/27/19 24 11:28 AM EDT documented as of this encounter Care Teams Ultrasonic Solderer Relationship Specialty Start Date End Date Zora Gallagher, LINE SERVER [address] [facility], [address] [place] [address] [email or web address] PCP - General Nurse Practitioner 08/14/23 Billy Roman MD 3 [place] [address] [email or web address] Cardiology 11/12/21 AileenLuciaZora, CNP [address] [facility], [address] [place] [address] [email or web address] Insurance Assigned Provider 08/22/24 documented as of this encounter Additional Source Comments The information contained in this document represents components of the legal health record. It is not the complete legal health record.[facility]
--- OUTSIDE RECORDS SUMMARY | 2025-03-30 11:39 | XMS_ITS | Encounter Summary ---
Author Organization [facility] Address [address] [facility] [address] [place] [address] Phone Care Team Providers Care Admissions Recruiter Name Role Phone Chidi Torres MD Primary Care Provider [phone] Chidi Torres MD Unavailable [phone] Chidi Torres MD Unavailable Billy Roman MD Unavailable [phone] Zora Gallagher CNP Primary Care Provider Chidi Torres MD Unavailable [phone] Stefanie Dow MD Unavailable Zora Gallagher CATERING OPERATIONS MANAGER Unavailable Reason for Referral * MRI/CAT Scan - Closed Specialty Diagnoses / Procedures Referred By Contabisai t Referred To Contact Diagnoses Paroxysmal supraventricular tachycardia Procedures MCT (Mobile Cardiac Telemetry) Jennifer [place] MD Phone: tel: Referral ID Status Reason Start Date Expiration Date Visits Re quested Visits Authorized [id number] Closed 04/01/2019 03/31/2020 1 1 Encounter Details Date Type Department Care Team (Latest Contact Info) Description 04/01/2019 Ancillary [facility] [address] [place] [address] 3rd Floor, [address] [place], [place] [id number] Jennifer [place] MD [address] [facility] 1 [place] [address] Paroxysmal supraventricular tachycardia Social History Tobacco Use [...] AM EST Office Visit [facility] 234 [place] [address] Zora Gallagher CNP 234 [facility], [address] [place] [address] [email or web address] 05/24/2025 10:00 AM EST Office Visit [facility] [address] 3rd Floor, [address] [place] [address] John Bean MD 50 [place] [address] jose [email or web address] Scheduled Orders Name Type Priority Associated Diagnoses [...] documented as of this encounter Care Teams Admissions Recruiter Relationship Specialty Start Date End Date Chidi Torres MD [address] [place] [address] [email or web address] PCP - General 03/06/17 08/13/23 Zora Gallagher CNP [address] [place] [address] [email or web address] PCP - General Nurse Practitioner 08/14/23 Chidi Torres MD [address] [place] [address] Insurance Assigned Provider 03/25/20 07/22/20 Chidi Torres MD [address] [place] [address] Insurance Assigned Provider 08/25/21 11/11/21 Billy Roman MD [address] [address] [email or web address] Cardiology 11/12/21 Chidi Torres MD [address] [facility], [address] [place] [address] Insurance Assigned Provider 08/25/21 08/23/23 Stefanie Dow MD [address] [facility], [address] [place] [address] Insurance Assigned Provider 08/23/23 08/22/24 Zora Gallagher CNP [address] [facility], [address] [place] [address] [email or web address] Insurance Assigned Provider 08/22/24 documented as of this encounter Additional Source Comments The information contained in this document represents components of the legal health record. It is not the complete legal health record.[facility]
--- OUTSIDE RECORDS SUMMARY | 2025-03-30 11:39 | XMS_ITS | Encounter Summary ---
Author Organization [facility] Address [address] [place] [address] [address] [place] [address] Phone Care Team Providers Care As400 Consultant Name Role Phone Chidi Torres MD Primary Care Provider Chidi Torres MD Unavailable [phone] Billy Roman MD Unavailable Zora Gallagher CNP Primary Care Provider Chidi Torres MD Unavailable Stefanie Dow MD Unavailable Zora Gallagher [facility] Unavailable Reason for Referral * MRI/CAT Scan - Closed Specialty Diagnoses / Procedures Referred By Contac t Referred To Contact Radiology Diagnoses Nonintractable headache, unspecified chronicity pattern, unspecified headache type Procedures MRI Brain Nirali Rausch MD [address]&[place] [address] Phone: tel: fax: Referral ID Status Reason Start Date Expiration Date Visits Re quested Visits Authorized [id number] Closed 09/14/2021 09/14/2022 1 1 Encounter Details Date Type Department Care Team (Latest Contact Info) Description 09/14/2021 Transcribe Orders Virtual Department 30 [place] [address] Nirali Rausch MD 3300 [facility] 3C&[place] [address] Nonintractable headache, unspecified chronicity pattern, unspecified headache [...] Description 04/27/2025 9:00 AM EST Office Visit [facility] 234 [place] [address] Zora Gallagher CNP 234 [facility], [address] [place] [address] 05/24/2025 10:00 AM EST Office Visit [facility] [address] [place] [address] 3rd Floor, [address] [place] [address] John Bean MD 50 [place] [address] documented as of this encounter Results * [...] documented as of this encounter Care Teams As400 Consultant Relationship Specialty Start Date End Date Chidi Torres MD [address] [place] [address] 7 [place] [address] PCP - General 03/06/17 08/13/23 Zora Gallagher CNP [address] [place] [address], [facility] 7 [place] [address] PCP - General Nurse Practitioner 08/14/23 Chidi Torres MD [address] [place] [address], [facility] 7 [place] [address] [email or web address] Insurance Assigned Provider 08/25/21 11/11/21 Billy Roman MD [address] [place] [address] [email or web address] Cardiology 11/12/21 Chidi Torres MD [address] [place] [address] 7 [place] [address] [email or web address] Insurance Assigned Provider 08/25/21 08/23/23 Stefanie Dow MD [address] [place] [address] 7 [place] [address] Insurance Assigned Provider 08/23/23 08/22/24 Zora Gallagher CNP [address] [place] [address] 7 [place] [address] [email or web address] Insurance Assigned Provider 08/22/24 documented as of this encounter Additional Source Comments The information contained in this document represents components of the legal health record. It is not the complete legal health record.[facility]
--- OUTSIDE RECORDS SUMMARY | 2025-03-30 11:39 | XMS_ITS | Encounter Summary ---
Author Organization [facility] Address [address] [place] [address] [place] [address] Phone Care Team Providers Care Automotive Glazier Name Role Phone Chidi Torres MD Primary Care Provider Chidi Torres MD Unavailable [phone] Chidi Torres MD Unavailable [phone] Billy Roman MD Unavailable Zora Gallagher THERMAL CUTTER HAND Primary Care Provider [phone] Chidi Torres MD Unavailable Stefanie Dow MD Unavailable Zora Gallagher THERMAL CUTTER HAND Unavailable Encounter Details Date Type Department Care Team (Late st Contact Info) Description 05/23/2020 Procedure Pass [facility], [address] [place] [address] Social History Tobacco Use Types Packs/Day Years [...] Description 04/27/2025 9:00 AM EST Office Visit [facility] 234 [place] [address] Zora Gallagher CNP 234 [facility], [address] [place] [address] 05/24/2025 10:00 AM EST Office Visit [facility] [address] [facility] 3rd Floor, [address] [place] [address] John Bean MD 50 [place] [address] documented as of this encounter Visit Diagnoses [...] as of this encounter Care Teams Automotive Glazier Relationship Specialty Start Date End Date Chidi Torres MD [address] [place] [address] 7 [place] [address] [email or web address] PCP - General 03/06/17 08/13/23 Zora Gallagher CNP [address] [place] [address] 7 [place] [address] PCP - General Nurse Practitioner 08/14/23 Chidi Torres MD [address] [place] [address] 7 [place] [address] [email or web address] Insurance Assigned Provider 03/25/20 07/22/20 Chidi Torres MD [address] [place] [address] 7 [place] [address] [email or web address] Insurance Assigned Provider 08/25/21 11/11/21 Billy Roman MD [address] [place] [address] [email or web address] Cardiology 11/12/21 Chidi Torres MD [address] [place] [address] 7 [place] [address] [email or web address] Insurance Assigned Provider 08/25/21 08/23/23 Stefanie Dow MD [address] [place] [address] 7 [place] [id number] Insurance Assigned Provider 08/23/23 08/22/24 Zora Gallagher CNP [address] [place] [address] 7 [place] [address] [email or web address] Insurance Assigned Provider 08/22/24 documented as of this encounter Additional Source Comments The information contained in this document represents components of the legal health record. It is not the complete legal health record.[facility]
--- OUTSIDE RECORDS SUMMARY | 2025-03-30 11:39 | XMS_ITS | Encounter Summary ---
Author Organization [facility] Address [address] [place] [address] Drive [address] [place] [address] Phone Care Team Providers Care Business Planning Director Name Role Phone Billy Roman MD Unavailable Zora Gallagher CNP Primary Care Provider Zora Gallagher CNP Unavailable Encounter Details Date Type Department Care Team (Late st Contact Info) Description 03/11/2025 Ancillary Orders [address] [address] Alyssa Helms MD [address] [place] [address] Orthopedics & Sports Medicine, [facility] [place], [place] [id number] [email or web address] Osteoarthritis, localized, shoulder, left (Primary Dx) Social History Tobacco Use Types [...] 04/27/2025 9:00 AM EST Office Visit [facility] 234 [place] [address] Zora Gallagher CNP 234 [facility] 7 [place] [address] 05/24/2025 10:00 AM EST Office Visit [facility] [address] [place] [address] 3rd Floor, [address] [place] [address] John Bean MD 50 [place] [address] Pending Results Name Type Priority Associated Diagnoses Date /Time FL Guidance Needle Placement Non-Spine Imaging Routine Osteoarthritis, localized, shoulder, left 03/15/2025 11:41 AM EDT Scheduled Orders Name Type Priority Associated Diagnoses Orde r Schedule FL Guidance Needle Placement Non-Spine Imaging Routine Osteoarthritis, localized, shoulder, left 1 Occurrences starting 03/11/2025 until 06/11/2025 documented as of this encounter Visit Diagnoses Diagnosis Osteoarthritis, localized, shoulder, left- Primary documented in this encounter Additional Health Concerns Assessment Noted Time PHQ-2 Depression Total Score: 0 08/27/19 24 11:28 AM EDT documented as of this encounter Care Teams Business Planning Director Relationship Specialty Start Date End Date Zora Gallagher CNP 234 [facility] [address] [place] [address] PCP - General Nurse Practitioner 08/14/23 Blily Roman MD [address] [address] [email or web address] Cardiology 11/12/21 Zora Gallagher CNP [address] [place] [address], [address] [place] [address] [email or web address] Insurance Assigned Provider 08/22/24 documented as of this encounter Additional Source Comments The information contained in this document represents components of the legal health record. It is not the complete legal health record.[facility]
--- OUTSIDE RECORDS SUMMARY | 2025-03-30 11:39 | XMS_ITS | Encounter Summary ---
Author Organization [facility] Address [address] [place] [address] [place] [address] Phone Care Team Providers Care Mdm Developer Name Role Phone Chidi Torres MD Primary Care Provider [phone] Chidi Torres MD Unavailable Billy Roman MD Unavailable Zora Gallagher POLICY CANCELLATION CLERK Primary Care Provider Chidi Torres MD Unavailable Stefanie Dow MD Unavailable Zora Gallagher POLICY CANCELLATION CLERK Unavailable Encounter Details Date Type Department Care Team (Late st Contact Info) Description 04/16/[address] [facility] Electrophysiology Lab [address] [place] [address] Social History Tobacco Use Types Packs/Day Years [...] Description 04/27/2025 9:00 AM EST Office Visit [facility] 234 [place] [address] Zora Gallagher CNP 234 [facility] 7 [place] [address] 05/24/2025 10:00 AM EST Office Visit [facility] [address] [facility] 3rd Floor, [address] [place] [address] John Bean MD 50 [place] [address] jose documented as of this encounter Visit [...] documented as of this encounter Care Teams Mdm Developer Relationship Specialty Start Date End Date Chidi Torres MD [address] [place] [address] 7 [place] [address] PCP - General 03/06/17 08/13/23 Zora Gallagher CNP [address] [place] [address] 7 [place] [address] PCP - General Nurse Practitioner 08/14/23 Chidi Torres MD [address] [place] [address] 7 [place] [address] Insurance Assigned Provider 08/25/21 11/11/21 Billy Roman MD [address] [address] [email or web address] Cardiology 11/12/21 Chidi Torres MD [address] [place] [address], [address] [place] [address] Insurance Assigned Provider 08/25/21 08/23/23 Stefanie Dow MD [address] [place] [address], [address] [place] [address] Insurance Assigned Provider 08/23/23 08/22/24 Zora Gallagher CNP [address] [place] [address], [address] [place] [address] [email or web address] Insurance Assigned Provider 08/22/24 documented as of this encounter Additional Source Comments The information contained in this document represents components of the legal health record. It is not the complete legal health record.[facility]
--- OUTSIDE RECORDS SUMMARY | 2025-03-30 11:39 | XMS_ITS | Encounter Summary ---
Author Organization [facility] Address [address] [place] [address] [place] [address] Phone Care Team Providers Care Phlebotomy Services Technician Name Role Phone Chidi Torres MD Primary Care Provider Chidi Torres MD Unavailable Chidi Torres MD Unavailable Billy Roman MD Unavailable [phone] Zora Gallagher CNP Primary Care Provider Chidi Torres MD Unavailable Stefanie Dow MD Unavailable Zora Gallagher VALVE REPAIRER Unavailable [phone] Encounter Details Date Type Department Care Team (Late st Contact Info) Description 06/29/2020 Procedure Pass [facility] [place] [facility], [facility] [address] [place] [address] Social History Tobacco Use Types Packs/Day Years [...] Description 04/27/2025 9:00 AM EST Office Visit [facility] 234 [place] [address] Zora Gallagher CNP 234 [facility], [address] [place] [address] 05/24/2025 10:00 AM EST Office Visit [facility] [address] [place] [address] 3rd Floor, [address] [place] [address] John Bean MD 50 [place] [address] documented as of this encounter Visit Diagnoses [...] documented as of this encounter Care Teams Phlebotomy Services Technician Relationship Specialty Start Date End Date Chidi Torres MD 234 [facility] 7 [place] [address] PCP - General 03/06/17 08/13/23 Zora Gallagher CNP [address] [place] [address], [facility] 7 [place] [address] PCP - General Nurse Practitioner 08/14/23 Chidi Torres MD [address] [place] [address], [facility] 7 [place] [address] [email or web address] Insurance Assigned Provider 03/25/20 07/22/20 Chidi Torres MD [address] [place] [address], [facility] 7 [place] [address] [email or web address] Insurance Assigned Provider 08/25/21 11/11/21 Billy Roman MD [address] [place] [address] [email or web address] Cardiology 11/12/21 Chidi Torres MD [address] [place] [address] 7 [place] [address] [email or web address] Insurance Assigned Provider 08/25/21 08/23/23 Stefanie Dow MD [address] [place] [address], [facility] 7 [place] [address] [email or web address] Insurance Assigned Provider 08/23/23 08/22/24 Zora Gallagher CNP [address] [place] [address], [address] [place] [address] [email or web address] Insurance Assigned Provider 08/22/24 documented as of this encounter Additional Source Comments The information contained in this document represents components of the legal health record. It is not the complete legal health record.[facility]
--- OUTSIDE RECORDS SUMMARY | 2025-03-30 11:39 | XMS_ITS | Encounter Summary ---
Author Organization Formerly [facility] Address [address] [place] [address] [address] [place] [address] Phone Care Team Providers Care Port Engineer Name Role Phone Chidi Torres MD Primary Care Provider [phone] Chidi Torres MD Unavailable Billy Roman MD Unavailable [phone] Zora Gallagher WAGON DRILLER Primary Care Provider [phone] Chidi Torres MD Unavailable [phone] Stefanie Dow MD Unavailable [phone] Zora Gallagher WAGON DRILLER Unavailable Encounter Details Date Type Department Care Team (Late st Contact Info) Description 08/09/2021 Procedure Pass [facility] EKG [address] [place] [address] Social History Tobacco Use Types Packs/Day Years [...] Encounters Date Type Department Care Team (Late Contact Info) Description 04/27/2025 9:00 AM EST Office Visit [facility] [address] [place] [address] Zora Gallagher CNP 234 [facility] [address] [place] [address] 05/24/2025 10:00 AM EST Office Visit [facility] [address] [facility] 3rd Floor, [address] [place] [address] John Bean MD [address] [place] [address] documented as of this encounter Visit Diagnoses Not on filedocumented in this encounter Additional Health Concerns Infection Onset Date Last Indicated Resolved Time CoV-Risk 10/03/2021 10/03/2021 10/14/2021 1:22 AM EDT CoV-Presumed 01/05/2022 01/05/2022 01/26/2022 1:21 AM EDT Assessment Noted Time PHQ-2 Depression Total Score: 0 11/24/19 9:14 AM EDT documented as of this encounter Care Teams Port Engineer Relationship Specialty Start Date End Date Chidi Torres MD [address] [place] [id number] PCP - General 03/06/17 08/13/23 Zora Gallagher CNP [address] [place] [address] 7 [place] [address] PCP - General Nurse Practitioner 08/14/23 Chidi Torres MD [address] [place] [address] 7 [place] [address] Insurance Assigned Provider 08/25/21 11/11/21 Billy Roman MD [address] [address] [email or web address] Card[facility] 11/12/21 Chidi Torres MD [address] [place] [address], [address] [place] [address] Insurance Assigned Provider 08/25/21 08/23/23 Stefanie Dow MD [address] [place] [address], [address] [place] [address] Insurance Assigned Provider 08/23/23 08/22/24 Zora Gallagher CNP [address] [place] [address], [address] [place] [address] Insurance Assigned Provider 08/22/24 documented as of this encounter Additional Source Comments The information contained in this document represents components of the legal health record. It is not the complete legal health record.[facility]
--- OUTSIDE RECORDS SUMMARY | 2025-03-30 11:39 | XMS_ITS | Encounter Summary ---
Author Organization Located [facility] Address [address] [place] [address] [place] [address] Phone Care Team Providers Care City Recorder Name Role Phone Chidi Torres MD Primary Care Provider Chidi Torres MD Unavailable Billy Roman MD Unavailable [phone] Zora Gallagher RAIL BENDER Primary Care Provider Chidi Torres MD Unavailable [phone] Stefanie Dow MD Unavailable Zoar Gallagher RAIL BENDER Unavailable Encounter Details Date Type Department Care Team (Late st Contact Info) Description 09/14/2021 Procedure Pass [facility], [address] [place] [address] Social History Tobacco Use Types Packs/Day Years [...] Description 04/27/2025 9:00 AM EST Office Visit [facility] [address] [place] [address] Zora Gallagher CNP 234 [facility] [address] [place] [address] 05/24/2025 10:00 AM EST Office Visit [facility] [address] [place] [address] [address]rd Floor, [address] [place] [address] John Bean MD [address] [place] [address] jose documented as of this encounter Visit Diagnoses Not on filedocumented in this encounter Additional Health Concerns Infection Onset Date Last Indicated Resolved Time CoV-Risk 10/03/2021 10/03/2021 10/14/2021 1:22 AM EDT CoV-Presumed 01/05/2022 01/05/2022 01/26/2022 1:21 AM EDT Assessment Noted Time PHQ-2 Depression Total Score: 0 11/24/19 9:14 AM EDT documented as of this encounter Care Teams City Recorder Relationship Specialty Start Date End Date Chidi Torres MD [address] [place] [address] 7 [place] [address] PCP - General 03/06/17 08/13/23 Zora Gallagher CNP [address] [place] [address] [address] [place] [address] PCP - General Nurse Practitioner 08/14/23 Chidi Torres MD [address] [place] [address] 7 [place] [address] Insurance Assigned Provider 08/25/21 11/11/21 Billy Roman MD [address] [address] [email or web address] Cardiology 11/12/21 Chidi Torres MD [address] [place] [address], [address] [place] [address] Insurance Assigned Provider 08/25/21 08/23/23 Stefanie Dow MD [address] [place] [address], [facility] 7 [place] [address] Insurance Assigned Provider 08/23/23 08/22/24 Zora Gallagher CNP [address] [place] [address], [address] [place] [address] Insurance Assigned Provider 08/22/24 documented as of this encounter Additional Source Comments The information contained in this document represents components of the legal health record. It is not the complete legal health record.[facility]
--- OUTSIDE RECORDS SUMMARY | 2025-03-30 11:39 | XMS_ITS | Encounter Summary ---
Author Organization [facility] Address [address] [facility] [address] [place] [address] Phone Care Team Providers Care Quantitative Analyst Developer Name Role Phone Billy Roman MD Unavailable [phone] Zora Gallagher CNP Primary Care Provider [phone] Zora Gallagher CNP Unavailable [phone] Reason for Referral * MRI/CAT Scan - Closed Specialty Diagnoses / Procedures Referred By Monica scott Referred To Contact Radiology Procedures Outside MR Imaging Report Only [facility] [address] [place] [address] Phone: tel: fax: Referral ID Status Reason Start Date Expiration Date Visits Re quested Visits Authorized [id number] Closed 03/04/2025 1 1 Encounter Details Date Type Department Care Team (Late st Contact Info) Description 03/04/2025 Orders Only [facility] [address] [place] [address] Natasha Grajeda MD [address] [place] [address] Social History Tobacco Use Types Packs/Day [...] Description 04/27/2025 9:00 AM EST Office Visit [facility] [address] [place] [address] Zora Gallagher CNP [address] [facility], [address] [place] [address] 05/24/2025 10:00 AM EST Office Visit [facility] [address] [facility] 3rd Floor, [address] [place] [address] John Bean MD 50 [place] [address] documented as of this encounter Procedures Procedure Name Priority Date/Time Associated Diagnosis Comments OUTSIDE MR IMAGING REPORT ONLY Routine 03/04/2025 11:43 AM EDT documented in this encounter Results * Outside MR Imaging Report Only (03/04/2025 11:43 AM EDT) us Historical Provider MD GASPAR MR Final Res ult documented in this encounter Visit Diagnoses Not on filedocumented in this encounter Additional Health Concerns Assessment Noted Time PHQ-2 Depression Total Score: 0 08/27/19 24 11:28 AM EDT documented as of this encounter Care Teams Quantitative Analyst Developer Relationship Specialty Start Date End Date Zora Gallagher, FLOATING OPERATOR [address] [facility], [address] [place] [address] [email or web address] PCP - General Nurse Practitioner 08/14/23 Billy Roman MD [address] [place] [address] [email or web address] Cardiology 11/12/21 AileenLuciaZora, CNP [address] [facility], [address] [place] [address] [email or web address] Insurance Assigned Provider 08/22/24 documented as of this encounter Additional Source Comments The information contained in this document represents components of the legal health record. It is not the complete legal health record.[facility]
--- OUTSIDE RECORDS SUMMARY | 2025-03-30 11:39 | XMS_ITS | Encounter Summary ---
Author Organization [facility] Address [address] [place] [address] Phone Care Team Providers Care Home Help Aide Name Role Phone Billy Roman MD Unavailable [phone] Zora Gallagher CNP Primary Care Provider Stefanie Dow MD Unavailable [phone] Zora Gallagher CNP Unavailable Encounter Details Date Type Department Care Team (Late st Contact Info) Description 02/26/2024 Procedure Pass [facility], [address] [address] Social History Tobacco Use Types Packs/Day Years [...] Description 04/27/2025 9:00 AM EST Office Visit [facility] [address] [place] [address] Zora Gallagher CNP 234 [facility] 7 [place] [address] 05/24/2025 10:00 AM EST Office Visit [facility] [address] [facility] 3rd Floor, [address] [place] [address] John Bean MD 50 [place] [address] documented as of this encounter Visit Diagnoses Not on filedocumented in this encounter Additional Health Concerns Assessment Noted Time PHQ-2 Depression Total Score: 0 08/27/19 24 11:28 AM EDT documented as of this encounter Care Teams Home Help Aide Relationship Specialty Start Date End Date Zora Gallagher CNP [address] [facility] 7 [place] [address] PCP - General Nurse Practitioner 08/14/23 Billy Roman MD [address] [address] [email or web address] Cardiology 11/12/21 Stefanie Dow MD [address] [facility] 7 [place] [address] Insurance Assigned Provider 08/23/23 08/22/24 Zora Gallagher CNP [address] [place] [address], [address] [place] [address] [email or web address] Insurance Assigned Provider 08/22/24 documented as of this encounter Additional Source Comments The information contained in this document represents components of the legal health record. It is not the complete legal health record.[facility]
== END 2025-03-30 10:39 | disposition home or self-care (01) ==
LOC: HO.HSM 09:57
PROVIDERS: PCP Nurse Practitioner Family; Visit Provider Nurse Practitioner
DX: M25.512 Pain in left shoulder (principal); M54.2 Cervicalgia; R51.9 Headache, unspecified; R26.9 Unspecified abnormalities of gait and mobility; M79.18 Myalgia, other site
CPT/HCPCS: 20552; 64405

== ENCOUNTER → 2025-03-30 09:56 | Outpatient (BNVA) | payer MEDICARE, SELFPAY | PROVIDERS: PCP Nurse Practitioner Family; Visit Provider Nurse Practitioner | DX: M25.512 Pain in left shoulder (principal); M54.2 Cervicalgia; R51.9 Headache, unspecified; M79.10 Myalgia, unspecified site; R26.9 Unspecified abnormalities of gait and mobility | CPT/HCPCS: 20552; 64405; J0665; J2003 ==